=== PATIENT | female | born 1970 | race Caucasian/White ===

== ENCOUNTER → 2019-12-03 06:46 | Outpatient (CLI) | payer OTHER, SELFPAY ==
--- NOTE | ~2019-12-03 | MM_ITS ---
EXAMINATION: MM screening edy BI w [place] HISTORY: Screening mammogram TECHNIQUE: Bilateral rotated lateral cc views. Craniocaudal and mediolateral oblique 3-D tomosynthesi s images were obtained and synthetic 2-D images were generated. CAD analysis was submitted and interp reted. COMPARISON: 04/05/2018 diagnostic digital mammogram 08/31/2017 and 03/21/2017 diagnostic right digital mammogram and limited right breast ultrasound examin ations 03/08/2017 bilateral digital screening mammogram BREAST PARENCHYMAL COMPOSITION: There are scattered areas of fibroglandular density. FINDINGS: There are scattered bilateral benign calcifications. There is no evidence of suspicious mas s, calcification, or architectural distortion to suggest malignancy in either breast. There has been no suspicious interval change. IMPRESSION: 1. No mammographic evidence of malignancy. 2. Recommend routine screening mammography in one year. BI-RADS Category 2: Benign findings Reviewed, dictated and finalized at location B. 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
== END ==
PROVIDERS: PCP Family Medicine; Visit Provider Obstetrics & Gynecology
DX: Z12.31 Encounter for screening mammogram for malignant neoplasm of breast (principal)
CPT/HCPCS: 77063; 77067

== ENCOUNTER 2020-03-03 11:08 | Outpatient (CLI) | payer OTHER, SELFPAY ==
--- NOTE | ~2020-03-03 | XR_ITS ---
XR lumbar spine 2-3V 03/03/2020 11:33 Indication: Low back pain Procedure: 3 views lumbar spine Comparison: No prior studies for comparison. Findings: There is dextroscoliosis. There is disc narrowing at L4-5. There is moderate facet hypertro phy at L4-5 and L5-S1. There is degenerative grade 1 spondylolisthesis at L4-5. There is disc narrowi ng at L1-2. No acute fracture or traumatic malalignment. Pedicles intact. Sacral foramen are symmetri c. Impression: 1: Moderate lumbar spondylosis with dextroscoliosis. Reviewed, dictated and finalized at location A. Impression: 1: Moderate lumbar spondylosis with dextroscoliosis.
--- NOTE | ~2020-03-03 | XR_ITS ---
XR hip LT min 2V 03/03/2020 11:32 Indication: Left hip pain Procedure: 3 views left hip Comparison: No prior studies for comparison. Findings: No fracture or traumatic malalignment. No significant soft tissue abnormality. Surrounding osseous structures within normal limits. Impression: 1: No significant bone or joint abnormality. Reviewed, dictated and finalized at location A. Impression: 1: No significant bone or joint abnormality.
== END 2020-03-03 11:09 | disposition home or self-care (01) ==
LOC: ANHIMG 11:10
PROVIDERS: PCP Family Medicine; Visit Provider Nurse Practitioner Family
DX: M25.552 Pain in left hip (principal); M54.9 Dorsalgia, unspecified; M47.816 Spondylosis without myelopathy or radiculopathy, lumbar region; M41.86 Other forms of scoliosis, lumbar region
CPT/HCPCS: 72100; 73502

== ENCOUNTER → 2020-12-22 11:46 | Outpatient (CLI) | payer OTHER, SELFPAY ==
[2020-12-23 14:42] LABS: SARS-CoV-2 RNA PCR Negative
== END ==
PROVIDERS: PCP Family Medicine; Visit Provider Nurse Practitioner Family
DX: R50.9 Fever, unspecified (principal); Z20.822 Contact with and (suspected) exposure to COVID-19
CPT/HCPCS: C9803; U0003; U0005

== ENCOUNTER → 2021-05-18 14:38 | Outpatient (CLI) | payer OTHER, SELFPAY ==
--- NOTE | ~2021-05-18 | MR_ITS ---
EXAMINATION: MR lumbar spine wo con EXAM DATE: 05/18/2021 15:58 INDICATION: M54.16 - Radiculopathy, lumbar region radiculopathy, lumbar region. Low back pain. TECHNIQUE: Multi-sequential, multiplanar MR images of the lumbar spine were obtained without contrast . Sagittal T1, T2, T2 fat saturation images. Axial T2 weighted images. Correlation is made to lumba r x-ray 03/03/2020. FINDINGS: There is 5 mm anterolisthesis L4 on L5 with mild to moderate loss of this disc height. Mild to moderate loss of the L1-2 disc height. Otherwise mild lumbar disc disease. The conus medullaris t erminates at the T12-L1 level and has normal signal intensity and morphology. Small thoracolumbar Sc hmorl's nodes. Paraspinal soft tissue is unremarkable. There is mild dextroscoliosis. Incidental note made of pelvic cystic region with fluid fluid level measuring about 4 x 5 cm. This is likely ovarian origin, could be a hemorrhagic cyst, but follow-up pelvic sonogram should be consider ed, particularly if patient is postmenopausal. Level by level evaluation: T12-L1: Disc does not extend beyond the endplate margin. Facet arthropathy: None. Neural foraminal stenosis: No stenosis. Central canal stenosis: No stenosis. L1-L2: There is a mild diffuse disc bulge. Facet arthropathy: Mild. Neural foraminal stenosis: No stenosis. Central canal stenosis: No stenosis. L2-L3: There is a mild diffuse disc bulge. Facet arthropathy: Mild. Neural foraminal stenosis: No stenosis. Central canal stenosis: No stenosis. L3-L4: There is a mild diffuse disc bulge. Facet arthropathy: Mild. Neural foraminal stenosis: No stenosis. Central canal stenosis: No stenosis. L4-L5: There is a mild to moderate diffuse disc bulge. Facet arthropathy: Moderate. Neural foraminal stenosis: Moderate left, mild to moderate right. Central canal stenosis: Mild to moderate. L5-S1: There is a mild diffuse disc bulge. Facet arthropathy: Mild. Neural foraminal stenosis: No stenosis. Central canal stenosis: No stenosis. IMPRESSION: 1. Incidental pelvic cystic lesion; consider pelvic sonogram. 2. L4-5 grade 1 anterolisthesis, moderate facet arthropathy and left neural foraminal stenosis. 3. Less spondylosis other levels. 4. Mild dextroscoliosis. Reviewed, dictated and finalized at location A. IMPRESSION: 1. Incidental pelvic cystic lesion; consider pelvic sonogram. 2. L4-5 grade 1 anterolisthesis, moderate facet arthropathy and left neural fo raminal stenosis. 3. Less spondylosis other levels. 4. Mild dextroscoliosis.
== END ==
PROVIDERS: PCP Family Medicine; Visit Provider Nurse Practitioner Family
DX: M47.26 Other spondylosis with radiculopathy, lumbar region (principal)
CPT/HCPCS: 72148

== ENCOUNTER 2021-06-10 13:36 | Outpatient (CLI) | payer OTHER, SELFPAY ==
--- NOTE | ~2021-06-10 | MM_ITS ---
EXAMINATION: MM screening edy BI w [place] HISTORY: Screening TECHNIQUE: Craniocaudal and mediolateral oblique 3-D tomosynthesis images were obtained and synthetic 2-D images were generated. CAD analysis was submitted and interpreted. COMPARISON: No prior mammogram is available for comparison at this institution. BREAST PARENCHYMAL COMPOSITION: There are scattered areas of fibroglandular density. FINDINGS: Stable focal asymmetry medial aspect of the right breast. There is no evidence of suspiciou s mass, calcification, or architectural distortion to suggest malignancy in either breast. There has been no suspicious interval change. IMPRESSION: 1. No mammographic evidence of malignancy. 2. Recommend routine screening mammography in one year. BI-RADS Category 2: Benign finding(s). Reviewed, dictated and finalized at location A.
== END 2021-06-10 13:37 | disposition home or self-care (01) ==
LOC: ANHIMG 13:38
PROVIDERS: PCP Family Medicine; Visit Provider Obstetrics & Gynecology
DX: Z12.31 Encounter for screening mammogram for malignant neoplasm of breast (principal)
CPT/HCPCS: 77063; 77067

== ENCOUNTER → 2022-04-06 00:30 | Outpatient (CLI) | payer OTHER, SELFPAY ==
[2022-04-06 12:27] LABS: SARS-CoV-2 RNA PCR Positive
== END ==
PROVIDERS: PCP Family Medicine; Visit Provider Nurse Practitioner Family
DX: U07.1 COVID-19 (principal)
CPT/HCPCS: C9803; U0003; U0005

== ENCOUNTER → 2022-10-19 08:52 | Outpatient (CLI) | payer OTHER, SELFPAY ==
--- NOTE | ~2022-10-19 | MR_ITS ---
EXAMINATION: MR lumbar spine wo con DATE: 10/19/2022 09:30 INDICATION: Lumbago. TECHNIQUE: Magnetic resonance imaging (MRI) of the lumbar spine was performed without intravenous con trast. Sequences included sagittal T2-weighted FSE, sagittal T2-weighted FS FSE, sagittal T1-weighted FSE, and axial T2-weighted FSE. COMPARISON: Lumbar spine MRI 05/18/2021 FINDINGS: There is 13 degrees dextroscoliosis of lumbar spine. There is 3 mm anterolisthesis of L4 on L5 and L5 on S1. There is mild chronic anterior wedging of T10 and T11 vertebral bodies. There are S chmorl's nodes at multiple levels. There is mildly decreased disc height at L1-L2. There are changes of anterior and posterior fusion procedures at L4-L5 with interbody devices and pedicle screws. The d istal spinal cord signal intensity is normal. The conus medullaris is at T12-L1. The following disc l evels are specifically discussed: L1-L2: The disc is bulging. There is mild bilateral facet joint osteoarthritis. There is mild bilater al neural foraminal stenosis. There is mild central canal stenosis. L2-L3: The disc does not extend beyond the endplate margin. There is mild bilateral facet joint osteo arthritis. There is no neural foraminal stenosis. There is no central canal stenosis. L3-L4: The disc does not extend beyond the endplate margin. There is severe bilateral facet joint ost eoarthritis. There is no neural foraminal stenosis. There is no central canal stenosis. L4-L5: There is mild bilateral facet joint hypertrophy. There is mild bilateral neural foraminal sten osis. There is no central canal stenosis. L5-S1: The disc is bulging and has an annular fissure. There is moderate bilateral facet joint osteoa rthritis. There is mild bilateral neural foraminal stenosis. There is mild central canal stenosis. IMPRESSION: 1. Anterior and posterior fusion procedures at L4-L5, new from 05/18/2021. 2. Mild lumbar spondylosis, stable from 05/18/2021. 3. Lumbar dextroscoliosis. Reviewed, dictated and finalized at location A. 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
== END ==
PROVIDERS: PCP Family Medicine
DX: M47.896 Other spondylosis, lumbar region (principal); Z98.1 Arthrodesis status
CPT/HCPCS: 72148

== ENCOUNTER 2023-02-16 14:05 | Outpatient (CLI) | payer OTHER, SELFPAY ==
--- NOTE | ~2023-02-16 | MM_ITS ---
EXAMINATION: MM screening edy BI w [place] HISTORY: Screening mammogram TECHNIQUE: Craniocaudal and mediolateral oblique 3-D tomosynthesis images were obtained and synthetic 2-D images were generated. CAD analysis was submitted and interpreted. COMPARISON: 06/10/2021, , 04/05/2018 bilateral screening mammogram examinations BREAST PARENCHYMAL COMPOSITION: There are scattered areas of fibroglandular density. FINDINGS: Stable mild fibroglandular asymmetry. Occasional benign calcifications. There is no evidenc e of suspicious mass, calcification, or architectural distortion to suggest malignancy in either [address]. There has been no suspicious interval change. IMPRESSION: 1. No mammographic evidence of malignancy. 2. Recommend routine screening mammography in one year. BI-RADS Category 2: Benign finding(s). Reviewed, dictated and finalized at location B.
== END 2023-02-16 14:06 | disposition home or self-care (01) ==
PROVIDERS: PCP Family Medicine; Visit Provider Obstetrics & Gynecology
DX: Z12.31 Encounter for screening mammogram for malignant neoplasm of breast (principal)
CPT/HCPCS: 77063; 77067

== ENCOUNTER 2023-08-09 17:03 | Outpatient (CLI) | payer BC, SELFPAY ==
--- NOTE | ~2023-08-09 | XR_ITS ---
EXAMINATION:XR_CERV2-3V_CR DATE: 08/09/2023 17:27 INDICATION: Anesthesia of the skin TECHNIQUE: AP, lateral, and odontoid views of the cervical spine are provided. COMPARISON: 01/26/2016 FINDINGS: There is 1 mm of anterolisthesis of C4 on C5. There are 2 mm of retrolisthesis of C5 on C6. There is moderate loss of intervertebral disc space height at C5-6. The odontoid process is intact. No fracture is identified. The vertebral body heights are maintained. Small degenerative osteophytes project from the anterior endplates of multiple vertebral bodies. There is multilevel moderate facet and uncovertebral joint osteoarthritis. Prevertebral soft tissues are normal. IMPRESSION: 1. Mild to moderate cervical spondylosis without acute findings or significant interval change. Reviewed, dictated and finalized at location F.
== END 2023-08-09 17:04 | disposition home or self-care (01) ==
PROVIDERS: PCP Family Medicine; Visit Provider Physician Assistant Medical
DX: R20.0 Anesthesia of skin (principal); M47.892 Other spondylosis, cervical region
CPT/HCPCS: 72040

== ENCOUNTER 2023-08-25 08:02 | Outpatient (CLI) | payer BC, SELFPAY ==
--- NOTE | ~2023-08-25 | MR_ITS ---
EXAMINATION: MR cervical spine wo con DATE: 08/25/2023 08:36 INDICATION: Neck pain. TECHNIQUE: Magnetic resonance imaging (MRI) of the cervical spine was performed without intravenous c ontrast. Sequences included sagittal T2-weighted FSE, sagittal T2-weighted FS FSE, sagittal T1-weight ed FSE, axial MERGE, and axial T2-weighted FSE. COMPARISON: Cervical spine MRI 02/02/2016, radiographs 08/09/2023 FINDINGS: There is kyphosis of cervical spine. There is 2 mm anterolisthesis of C3 on C4 and C4 on C5 . Vertebral body heights are normal. There is severely decreased disc height at C5-C6. The spinal cor d signal intensity is normal. The following disc levels are specifically discussed: C2-C3: The disc does not extend beyond the endplate margin. There is no uncovertebral joint osteoarth ritis. There is mild bilateral facet joint osteoarthritis. There is no neural foraminal stenosis. The re is no central canal stenosis. C3-C4: The disc does not extend beyond the endplate margin. There is mild left uncovertebral joint os teoarthritis. There is severe bilateral facet joint osteoarthritis. There is mild left neural foramin al stenosis. There is no central canal stenosis. C4-C5: The disc does not extend beyond the endplate margin. There is moderate bilateral uncovertebral joint osteoarthritis. There is severe right and moderate left facet joint osteoarthritis. There is m oderate right and mild left neural foraminal stenosis. There is no central canal stenosis. C5-C6: The disc is bulging. There is severe bilateral uncovertebral joint osteoarthritis. There is mi ld bilateral facet joint osteoarthritis. There is mild right and moderate left neural foraminal steno sis. There is mild central canal stenosis. C6-C7: There is a central protrusion with annular fissure. There is no uncovertebral joint osteoarthr itis. There is severe bilateral facet joint osteoarthritis. There is mild bilateral neural foraminal stenosis. There is no central canal stenosis. C7-T1: The disc does not extend beyond the endplate margin. There is no uncovertebral joint osteoarth ritis. There is mild right and severe left facet joint osteoarthritis. There is mild left neural fora carlos stenosis. There is no central canal stenosis. IMPRESSION: 1. Severe spondylosis at C5-C6 and moderate spondylosis at other levels, worsened from 02/02/2016. Reviewed, dictated and finalized at location E. IMPRESSION: 1. Severe spondylosis at C5-C6 and moderate spondylosis at other levels, worsen ed from 02/02/2016.
== END 2023-08-25 08:03 | disposition home or self-care (01) ==
PROVIDERS: PCP Family Medicine; Visit Provider Nurse Practitioner Family
DX: M47.892 Other spondylosis, cervical region (principal); R20.0 Anesthesia of skin
CPT/HCPCS: 72141

== ENCOUNTER 2024-03-14 11:12 | Outpatient (CLI) | payer BC, SELFPAY ==
--- NOTE | ~2024-03-14 | XR_ITS ---
EXAMINATION: XR shoulder LT min 2V DATE: 03/14/2024 11:30 INDICATION: Left shoulder pain. TECHNIQUE: 4 views of left shoulder were obtained. COMPARISON: Left shoulder radiographs 01/26/2016 FINDINGS: Bone alignment is normal. No fracture. There is mild osteoarthritis of acromioclavicular issac int. Glenohumeral joint is normal. There are changes of posterior fusion procedure in cervical spine. IMPRESSION: 1. Mild osteoarthritis of acromioclavicular joint. Reviewed, dictated and finalized at location E.
== END 2024-03-14 11:13 ==
PROVIDERS: PCP Family Medicine; Visit Provider Nurse Practitioner Family
DX: M19.012 Primary osteoarthritis, left shoulder (principal)
CPT/HCPCS: 73030

== ENCOUNTER 2024-08-08 10:25 | Outpatient (CLI) | payer BC, SELFPAY ==
--- NOTE | ~2024-08-08 | XR_ITS ---
Lumbosacral Spine: AP and lateral views Clinical History: Pain COMPARISON: 03/03/2020 Findings: The normal lordotic curve is maintained. Status post interval posterior and interbody fusio n from L4 to L5. There are mild degenerative disc changes. There are mild facet joint degenerative ch anges. The sacroiliac joints are normally outlined. Impression: Status post interval posterior and interbody fusion from L4 to L5. [id number] degenerative spondylosis, as above. Reviewed, dictated and finalized at location M. Impression: Status post interval posterior and interbody fusion from L4 to L5. [id number] degenerative spondylosis, as above.
== END 2024-08-08 10:26 | disposition home or self-care (01) ==
LOC: MICIMG 10:26
PROVIDERS: PCP Family Medicine
DX: M47.816 Spondylosis without myelopathy or radiculopathy, lumbar region (principal); M43.26 Fusion of spine, lumbar region
CPT/HCPCS: 72100

== ENCOUNTER 2024-09-25 10:53 | Emergency (ER) | payer BC, SELFPAY ==
[2024-09-25 11:00] VITALS: BP 132/93; PULSE 98; RESP 17; TEMP 36.6; O2SAT 100
--- NOTE | 2024-09-25 11:02 | ECG_ITS ---
Test Date: 2024-09-25 11:05:44 Measurements Intervals [place] Rate: 84 P: 34 MT: 188 QRS: 37 QRSD: 85 T: 38 QT: 313 QTc: 370 Interpretive Statements SINUS RHYTHM BASELINE ARTIFACT- I, II, III, AVL, AVF, V5-V6 NORMAL ECG No previous ECG available for comparison Electronically Signed On 09-25-2024 12:01:28 NECK PINNER by Huy Fuchs D.O.
--- NOTE | 2024-09-25 13:21 | ED_ITS ---
HPI - General Adult General Chief complaint: Unspecified <Maria Ines Adler APRN - Last Filed: 09/25/24 13:25> Stated complaint: jaw, neck, shoulder and groin pain <Maria Ines Adler APRN - Last Filed: 09/25/24 13:25> Time Seen by Provider: 09/25/24 13:15 <Maria Ines Adler APRN - Last Filed: 09/25/24 13:25> Focused HPI: Patient is a 54-year-old female who presents to the toe pain that started last week but resolved 2 days ago. She endorses ongoing neck, shoulder and groin pain. Patient endorses muscle and joint pain this started approximately 7-8 months ago and she has an supervisor frame sample and pattern that follows her. She called her supervisor frame sample and pattern this morning because of the previous jaw pain and he advised her to come to the ER for evaluation. Patient endorses intermittent stiffness and pain in her neck. She denies chest pain, shortness of breath, recent fevers. GENERAL: Well-appearing, well-nourished, and in no acute distress. HEAD: Normocephalic, atraumatic. CHEST: Clear to auscultation. ?No respiratory distress. HEART: Regular rate and rhythm.? NEURO: ?Alert and oriented x3. Patient screened in triage and initial orders placed.? ?Additional care and disposition to be based upon?diagnostic testing and treatment. <Maria Ines Adler APRN - Last Filed: 09/25/24 13:25> History of Present Illness HPI narrative: Agree with HPI. Multiple body aches over last couple weeks. No jaw pain for 7 days. Has mild discomfort in left inguinal region. No swelling. <Edward Mckenna MD - Last Filed: 09/25/24 16:44> Related Data Home medications: Home Medications Medication Instructions Recorded Confirmed estradiol 1 mg tablet 1 mg PO DAILY 02/18/21 08/08/24 meloxicam 15 mg tablet 15 mg PO DAILY 08/08/24 08/08/24 <Maria Ines Adler APRN - Last Filed: 09/25/24 13:25> Allergies/adverse reactions: Allergies Allergy/AdvReac Type Severity Reaction Status Date / Time No Known Allergies Allergy Verified 08/08/24 09:38 <Maria Ines Adler APRN - Last Filed: 09/25/24 13:25> Review of Systems Review of Systems: All systems reviewed & are unremarkable except as noted in HPI and below <Edward Mckenna MD - Last Filed: 09/25/24 16:44> Constitutional: Constitutional: Reports no additional constitutional complaints <Edward Mckenna MD - Last Filed: 09/25/24 16:44> ENT: Reports system reviewed and no additional complaints, except as documented <Edward Mckenna MD - Last Filed: 09/25/24 16:44> Cardiovascular: Cardiovascular: Reports no additional cardiovascular complaints <Edward Mckenna MD - Last Filed: 09/25/24 16:44> Respiratory: Respiratory: Reports no additional respiratory complaints <Jt Mckenna MD - Last Filed: 09/25/24 16:44> Gastrointestinal: Gastrointestinal: Reports no additional gastrointestinal complaints <Edward Mckenna MD - Last Filed: 09/25/24 16:44> Musculoskeletal: Musculoskeletal: Reports myalgias, Denies arthralgias, Denies joint swelling and Denies muscle weakness <Edward Mckenna MD - Last Filed: 09/25/24 16:44> [facility] Past Medical History Medical History: Medical History Abnormal EKG Abnormal MRI, lumbar spine Binge eating disorder COVID-19 Discoloration of skin of toe Encounter before starting medication Eustachian tube dysfunction Excessive daytime sleepiness Fatigue Fever Hyperglycemia Hypocalcemia Left arm numbness Left lateral epicondylitis Lumbar back pain with radiculopathy affecting left lower extremity Migraines Nightmare disorder Numbness of right foot Onychomycosis Pain, hand joint Paresthesia Raynauds disease Screening for malignant neoplasm of breast Screening, lipid Skin abnormalities Trochanteric bursitis of left hip Unspecified disturbances of smell and taste <MariaI nes Adler APRN - Last Filed: 09/25/24 13:25> Surgical History Surgical History: Surgical History H/O spinal fusion History of foot surgery History of tubal ligation <Maria Ines Adler APRN - Last Filed: 09/25/24 13:25> Family History Family History: Family History Father Diabetes mellitus Heart disease Liver cancer Mother No problems noted. Sibling Tongue cancer COVID-19 Other Family history of malignant neoplasm <Maria Ines LWellington Adler APRN - Last Filed: 09/25/24 13:25> Social History Social History: Social History Smoking status: Never smoker Second hand tobacco smoke exposure: No Alcohol intake: current Substance use: former Substance use type: does not use Other substance usage details: gummies Do You Feel Safe in your Home?: Yes Lack of Transportation: No Lack of Food: Never True Current Housing: I Have Housing Concerned About Future Housing: No Difficulty Paying Gas/Electric Bills: No Difficulty Paying for Meds: No Currently Unemployed: No Education: Trade/Vocational Certificate Difficulty w/ Childcare or Family Care: No Living arrangements: with family Occupation/Education: occupation 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 HEAD: Normocephalic, atraumatic. EYES: PERRL and EOMI. ENT: Mucous membranes moist. CHEST: Clear to auscultation. No respiratory distress. HEART: Regular rate and rhythm. Normal peripheral pulses. ABDOMEN: Soft, nontender, nondistended. EXTREMITIES: Normal range of motion. No edema. SKIN: Warm, dry, no rash. NEURO: Alert and oriented x3. PSYCH: Normal mood and affect. <Edward Mckenna MD - Last Filed: 09/25/24 16:44> Course Course Emergency Course: Unremarkable evaluation. Appropriate for discharge home. <Edward Mckenna MD - Last Filed: 09/25/24 16:44> Vital Signs Vital signs: Vital Signs Temperature 97.8 F 09/25/24 11:00 Pulse Rate 98 09/25/24 11:00 Respiratory Rate 17 09/25/24 11:00 Blood Pressure 132/93 H 11/26/24 11:00 Pulse Oximetry 100 09/25/24 11:00 Oxygen Delivery Room Air 09/25/24 11:00 Temperature 97.8 F 09/25/24 11:00 Pulse Rate 71 09/25/24 15:58 Respiratory Rate 18 09/25/24 15:58 Blood Pressure 135/82 09/25/24 15:58 Pulse Oximetry 100 09/25/24 15:58 Oxygen Delivery Room Air 09/25/24 11:00 <Maria Ines Adler, [employer] - Last Filed: 09/25/24 13:25> Vital Signs Temperature 97.8 F 09/25/24 11:00 Pulse Rate 98 09/25/24 11:00 Respiratory Rate 17 09/25/24 11:00 Blood Pressure 132/93 H 09/25/24 11:00 Pulse Oximetry 100 09/25/24 11:00 Oxygen Delivery Room Air 09/25/24 11:00 Temperature 97.8 F 09/25/24 11:00 Pulse Rate 71 09/25/24 15:58 Respiratory Rate 18 09/25/24 15:58 Blood Pressure 135/82 09/25/24 15:58 Pulse Oximetry 100 09/25/24 15:58 Oxygen Delivery Room Air 09/25/24 11:00 <Edward Mckenna MD - Last Filed: 09/25/24 16:44> Medical Decision Making Vital Signs Vital Signs: Vital Signs Temperature 97.8 F 09/25/24 11:00 Pulse Rate 98 09/25/24 11:00 Respiratory Rate 17 09/25/24 11:00 Blood Pressure 132/93 H 09/25/24 11:00 Pulse Oximetry 100 09/25/24 11:00 Oxygen Delivery Room Air 09/25/24 11:00 Temperature 97.8 F 09/25/24 11:00 Pulse Rate 71 09/25/24 15:58 Respiratory Rate 18 09/25/24 15:58 Blood Pressure 135/82 09/25/24 15:58 Pulse Oximetry 100 09/25/24 15:58 Oxygen Delivery Room Air 09/25/24 11:00 <Maria Ines Adler, [employer] - Last Filed: 09/25/24 13:25> Vital Signs Temperature 97.8 F 09/25/24 11:00 Pulse Rate 98 09/25/24 11:00 Respiratory Rate 17 09/25/24 11:00 Blood Pressure 132/93 H 09/25/24 11:00 Pulse Oximetry 100 09/25/24 11:00 Oxygen Delivery Room Air 09/25/24 11:00 Temperature 97.8 F 09/25/24 11:00 Pulse Rate 71 09/25/24 15:58 Respiratory Rate 18 09/25/24 15:58 Blood Pressure 135/82 09/25/24 15:58 Pulse Oximetry 100 09/25/24 15:58 Oxygen Delivery Room Air 09/25/24 11:00 <Edward Mckenna MD - Last Filed: 09/25/24 16:44> Lab Data Result diagrams: 09/25/24 13:50 09/25/24 13:50 <Maria Ines Adler APRN - Last Filed: 09/25/24 13:25> Labs: Lab Results 09/25/24 09/25/24 Range/Units 13:50 15:12 WBC 7.3 (4.5-10.0) K/mm3 RBC 4.01 L (4.2-5.4) M/mm3 Hgb 13.0 (12.0-15.0) g/dL Hct 37.3 (37.0-47.0) % MCV 93.0 (80-100) fl MCH 32.4 (26-34) pg MCHC 34.9 (32-36) g/dl RDW 12.8 (11.5-14.5) % Plt Count 259 (150-375) k/mm3 MPV 9.7 (7.4-10.4) fl Immature Gran % (Auto) 0.1 (0-0.5) % Neut % (Auto) 70.2 (45.5-73.1) % Lymph % (Auto) 20.5 (18.3-44.2) % [place] % (Auto) 7.8 (2.6-8.5) % Eos % (Auto) 0.4 (0-4.4) % Baso % (Auto) 1.0 (0.2-1.2) % Lymph # (Auto) 1.49 (0.9-3.2) K/mm3 [place] # (Auto) 0.6 (0.1-0.6) K/mm3 Eos # (Auto) 0.0 (0-0.3) K/mm3 Baso # (Auto) 0.1 (0.0-0.1) K/mm3 Abs Immat Gran (auto) 0.01 (0.00-0.031) K/mm3 Absolute Neuts (auto) 5.1 (1.3-6.7) K/mm3 Absolute Nucleated RBC 0.000 (0.0-0.012) K/mm3 Nucleated RBC % 0.0 (0.0-0.2) % PT 12.8 (11.1-14.7) Seconds INR 0.9 APTT 24.7 (22.3-36.8) Seconds Sodium 138 (137-145) mmol/L Potassium 3.8 (3.4-5.0) mmol/L Chloride 105 (98-107) mmol/L Carbon Dioxide 29 (22-30) mmol/L Anion Gap 4 (4-12) mmol/L BUN 22 H (7-17) mg/dL Creatinine 0.50 L (0.7-1.0) mg/dL Estim Creat Clear Calc 92 ml/min Estimated GFR > 60 (59 - ) Glucose 90 (65-110) mg/dL Calcium 9.1 (8.4-10.2) mg/dL Total Bilirubin 0.6 (0.2-1.3) mg/dL AST 33 (14-36) U/L ALT 22 (6-35) U/L Alkaline Phosphatase 75 (38-126) U/L Total Creatine Kinase 161 H (30-135) U/L Total Protein 7.0 (6.3-8.2) g/dL Albumin 4.1 (3.5-5.1) g/dL Lipase 165 (23-300) U/L TSH (Reflex) 1.260 (0.465-4.68) uIU/mL Urine Color Yellow (Yellow) Urine Appearance Clear (Clear) Urine pH 5.5 (5.0-9.0) Ur Specific [place] 1.012 (1.001-1.035) Urine Protein Negative (Negative) mg/dL Urine Glucose (UA) Negative (Negative) mg/dL Urine Ketones Negative (Negative) mg/dL Ur Blood (Man) Negative (Negative) Urine Nitrate Negative (Negative) Urine Bilirubin Negative (Negative) Urine Urobilinogen 0.2 (<2.0) mg/dL Leukocyte Esterase Rfl Negative (Negative) CLIFFORD/UL <Maria Ines Alysha Adler, [employer] - Last Filed: 09/25/24 13:25> Lab Results 09/25/24 09/25/24 Range/Units 13:50 15:12 WBC 7.3 (4.5-10.0) K/mm3 RBC 4.01 L (4.2-5.4) M/mm3 Hgb 13.0 (12.0-15.0) g/dL Hct 37.3 (37.0-47.0) % MCV 93.0 (80-100) fl MCH 32.4 (26-34) pg MCHC 34.9 (32-36) g/dl RDW 12.8 (11.5-14.5) % Plt Count 259 (150-375) k/mm3 MPV 9.7 (7.4-10.4) fl Immature Gran % (Auto) 0.1 (0-0.5) % Neut % (Auto) 70.2 (45.5-73.1) % Lymph % (Auto) 20.5 (18.3-44.2) % [place] % (Auto) 7.8 (2.6-8.5) % Eos % (Auto) 0.4 (0-4.4) % Baso % (Auto) 1.0 (0.2-1.2) % Lymph # (Auto) 1.49 (0.9-3.2) K/mm3 [place] # (Auto) 0.6 (0.1-0.6) K/mm3 Eos # (Auto) 0.0 (0-0.3) K/mm3 Baso # (Auto) 0.1 (0.0-0.1) K/mm3 Abs Immat Gran (auto) 0.01 (0.00-0.031) K/mm3 Absolute Neuts (auto) 5.1 (1.3-6.7) K/mm3 Absolute Nucleated RBC 0.000 (0.0-0.012) K/mm3 Nucleated RBC % 0.0 (0.0-0.2) % PT 12.8 (11.1-14.7) Seconds INR 0.9 APTT 24.7 (22.3-36.8) Seconds Sodium 138 (137-145) mmol/L Potassium 3.8 (3.4-5.0) mmol/L Chloride 105 (98-107) mmol/L Carbon Dioxide 29 (22-30) mmol/L Anion Gap 4 (4-12) mmol/L BUN 22 H (7-17) mg/dL Creatinine 0.50 L (0.7-1.0) mg/dL Estim Creat Clear Calc 92 ml/min Estimated GFR > 60 (59 - ) Glucose 90 (65-110) mg/dL Calcium 9.1 (8.4-10.2) mg/dL Total Bilirubin 0.6 (0.2-1.3) mg/dL AST 33 (14-36) U/L ALT 22 (6-35) U/L Alkaline Phosphatase 75 (38-126) U/L Total Creatine Kinase 161 H (30-135) U/L Total Protein 7.0 (6.3-8.2) g/dL Albumin 4.1 (3.5-5.1) g/dL Lipase 165 (23-300) U/L TSH (Reflex) 1.260 (0.465-4.68) uIU/mL Urine Color Yellow (Yellow) Urine Appearance Clear (Clear) Urine pH 5.5 (5.0-9.0) Ur Specific [place] 1.012 (1.001-1.035) Urine Protein Negative (Negative) mg/dL Urine Glucose (UA) Negative (Negative) mg/dL Urine Ketones Negative (Negative) mg/dL Ur Blood (Man) Negative (Negative) Urine Nitrate Negative (Negative) Urine Bilirubin Negative (Negative) Urine Urobilinogen 0.2 (<2.0) mg/dL Leukocyte Esterase Rfl Negative (Negative) CLIFFORD/UL <Edward Mckenna MD - Last Filed: 09/25/24 16:44> ECG Data EKG #1: ECG completion date: 09/25/24 <Edward Mckenna MD - Last Filed: 09/25/24 16:44> ECG completion time: 11:05 <Edward Mcknena MD - Last Filed: 09/25/24 16:44> EKG Interpretation: normal rate (84), sinus rhythm, no ectopy, non-specific ST changes, normal QRS, normal QT and NL axis <Edward Mckenna MD - Last Filed: 09/25/24 16:44> Discharge Plan Discharge Clinical Impression: Jaw pain <Maria Ines Adler APRN - Last Filed: 09/25/24 13:25> Patient Disposition: Home, Self-Care <Maria Ines Adler APRN - Last Filed: 09/25/24 13:25> Condition: Stable <Maria Ines Adler APRN - Last Filed: 09/25/24 13:25> Instructions: Normal Exam (ED) <Maria Ines Adler APRN - Last Filed: 09/25/24 13:25> Additional Instructions: Please return to the emergency department if you develop severe and persistent chest pain, difficulty breathing, dizziness, leg swelling or if you are coughing up blood as these can be signs of a medical emergency. Please call your doctor for a follow up appointment to determine the need for further testing. <Maria Ines Adler APRN - Last Filed: 09/25/24 13:25> Prescriptions: No Action cetirizine-pseudoephedrine [Zyrtec-D] 5-120 mg tablet extended release 12 hr 1 tablet PO Q12H PRN (Reason: nasal congestion) Qty: 60 0RF estradiol 1 mg tablet 1 mg PO DAILY Rx Instructions: off 1 week; repeat cycle meloxicam 15 mg tablet 15 mg PO DAILY tizanidine 2 mg tablet 2 mg PO TID PRN (Reason: muscle spasticity) Qty: 60 0RF lisdexamfetamine [Vyvanse] 70 mg capsule 70 mg PO DAILY Qty: 30 0RF <Maria Ines Adler APRN - Last Filed: 09/25/24 13:25> Follow-up/Referrals: Mann Tran MD [Primary Care Provider] - 1 Week <Maria Ines Adler APRN - Last Filed: 09/25/24 13:25>
[2024-09-25 13:47] VITALS: BP 132/82; PULSE 72; RESP 12; O2SAT 99
[2024-09-25 13:57] LABS: Basophils Absolute Auto 0.1 K/mm3 (0.0-0.1); Eosinophils Percent Auto 0.4 % (0-4.4); Hematocrit 37.3 % (37.0-47.0); Immature Granulocyte Absolute 0.01 K/mm3 (0.00-0.031); Immature Granulocyte Percent A 0.1 % (0-0.5); Lymphocytes Absolute Auto 1.49 K/mm3 (0.9-3.2); Lymphocytes Percent Auto 20.5 % (18.3-44.2); Mean Corpuscular HGB Conc 34.9 g/dl (32-36); Mean Corpuscular Hemoglobin 32.4 pg (26-34); Mean Platelet Volume 9.7 fl (7.4-10.4); Monocytes Absolute Auto 0.6 K/mm3 (0.1-0.6); Monocytes Percent Auto 7.8 % (2.6-8.5); Neutrophils Absolute Auto 5.1 K/mm3 (1.3-6.7); Neutrophils Percent Auto 70.2 % (45.5-73.1); Platelet Count Result 259 k/mm3 (150-375); Red Blood Count 4.01 M/mm3 (4.2-5.4); Red Cell Distribution Width 12.8 % (11.5-14.5); White Blood Count 7.3 K/mm3 (4.5-10.0)
[2024-09-25 14:07] LABS: Alanine Aminotransferase 22 U/L (6-35); Albumin Level 4.1 g/dL (3.5-5.1); Alkaline Phosphatase 75 U/L (38-126); Anion Gap 4 mmol/L (4-12); Aspartate Amino Transferase 33 U/L (14-36); Bilirubin,Total 0.6 mg/dL (0.2-1.3); Blood Urea Nitrogen 22 mg/dL (7-17); Calcium 9.1 mg/dL (8.4-10.2); Carbon Dioxide 29 mmol/L (22-30); Chloride 105 mmol/L (98-107); Creatine Kinase 161 U/L (30-135); Estimated CRCL calculation 92 ml/min; Estimated Glomerular Filt Rate > 60; Glucose 90 mg/dL (65-110); Lipase 165 U/L (23-300); Potassium 3.8 mmol/L (3.4-5.0); Sodium 138 mmol/L (137-145)
[2024-09-25 14:09] LABS: INR 0.9; Prothrombin Time 12.8 Seconds (11.1-14.7)
[2024-09-25 14:10] LABS: Partial Thromboplastin Time 24.7 Seconds (22.3-36.8)
--- NOTE | 2024-09-25 15:02 | PC.NURSE ---
patient ambulated to the restroom with steady gate
[2024-09-25 15:20] LABS: Add Urine Microscopic? NO; Appearance Urine Clear (Clear); Bilirubin Urine Negative (Negative); Blood Urine Negative (Negative); Color Urine Yellow (Yellow); Glucose Urine UA Negative (Negative); Ketones Urine Negative (Negative); Leukocyte Esterase Ur Negative LEU/UL (Negative); Nitrate Urine Negative (Negative); Protein Urine Negative (Negative); Specific Grav Ur 1.012 (1.001-1.035); Urobilinogen Urine 0.2 mg/dL (<2.0); pH Urine 5.5 (5.0-9.0)
[2024-09-25 15:58] VITALS: BP 135/82; PULSE 71; RESP 18; O2SAT 100
== END 2024-09-25 16:50 | disposition home or self-care (01) ==
PROVIDERS: Registered Nurse; Emergency Provider Emergency Medicine; PCP Family Medicine
DX: R68.84 Jaw pain (principal); I73.00 Raynaud's syndrome without gangrene; Z86.16 Personal history of COVID-19; Z79.899 Other long term (current) drug therapy
CPT/HCPCS: 36415; 80053; 81003; 82550; 83690; 84443; 85025; 85610; 85730; 93005; 99283

== ENCOUNTER 2024-12-17 18:32 | Emergency (ER) | payer BC, SELFPAY ==
--- NOTE | ~2024-12-17 | XR_ITS ---
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 COMPARISON: None available. FINDINGS: Osteopenia. No fracture or dislocation. No lytic or blastic lesion. Mild tricompartmental osteoarthritis. Small volume joint fluid. No erosion or periosteal change. Soft tissues within normal limits. IMPRESSION: No acute osseous finding in the left knee. Small left knee joint effusion. Reviewed, dictated and finalized at location K. RGIST/PEDIATRIC PULMONOLOGIST IMPRESSION: No acute osseous finding in the left knee. Small left knee joint ef fusion.
--- NOTE | ~2024-12-17 | XR_ITS ---
EXAM: XR ankle LT min 3V DATE: 12/17/2024 19:00 HISTORY: fell through ceiling- ankle injury and Knee [employer] . COMPARISON: None available. FINDINGS: Normal mineralization. Fixation screw in the first metatarsal. Nondisplaced oblique fractu re of the distal left fibula at the level of the joint line. No lytic or blastic lesion. Mild scatter ed degenerative change. Plantar enthesopathy. No erosion or periosteal change. Ankle joint effusion. Soft tissue swelling about the ankle. IMPRESSION: Nondisplaced oblique distal left fibular fracture (Kohler B). Reviewed, dictated and finalized at location K. N BLOCKER
--- NOTE | 2024-12-17 18:33 | ED.LOWEXIN ---
HPI - Extremity Injury (Lower) General Chief Complaint: Extremity Injury, Lower Stated Complaint: Injured Ankle and Knee Time Seen by Provider: 12/17/24 18:33 Source: patient Mode of arrival: ambulatory Limitations: no limitations History of Present Illness HPI Narrative: Oumou is a 54-year-old female patient presenting to the clinic today with complaints of left ankle and left knee injury. She reports she fell through her ceiling approximately 1 hour ago and injured her left knee and ankle. Is complaining of pain to the left lateral ankle and to the left anterior knee. Feels as though the knee is clicking when she is trying to walk. Also has 2 abrasion to the right noble. Related Data Home Medications ?Medication ?Instructions ?Recorded ?Confirmed ?Last Taken ?Type estradiol 1 mg tablet 1 mg PO DAILY 02/18/21 11/07/24 Unknown History testosterone cypionate 200 mg/mL 60 mg IM .every 10 days 11/07/24 11/07/24 Unknown History intramuscular syringe testosterone enanthate 200 mg/mL mg 12/17/24 Unknown History intramuscular oil Allergies Allergy/AdvReac Type Severity Reaction Status Date / Time No Known Allergies Allergy Verified 12/17/24 18:41 Review of Systems Review of Systems: Pertinent positives per HPI. Patient denies any fever, chills, rash, headache, visual changes, dizziness, cough, runny nose, sore throat, shortness of breath, chest pain, palpitations, nausea, vomiting, diarrhea, constipation, abdominal pain, or any urinary issues. FOR[facility], [facility] Past Medical History Medical History (Updated 12/17/24 @ 19:27 by Mango Grayson APRN) Bilateral otitis media with effusion Family history of liver cancer Liver cyst Lung nodules Bronchitis Positive anti-CCP test Abnormal C-reactive protein Hypocalcemia Hyperglycemia Abnormal EKG Left arm numbness Excessive daytime sleepiness Screening, lipid Screening for malignant neoplasm of breast Skin abnormalities Eustachian tube dysfunction Pain, hand joint Onychomycosis Encounter before starting medication Abnormal MRI, lumbar spine Migraines COVID-19 Discoloration of skin of toe Paresthesia Fatigue Raynauds disease Fever Unspecified disturbances of smell and taste Binge eating disorder Lumbar back pain with radiculopathy affecting left lower extremity Left lateral epicondylitis Nightmare disorder Numbness of right foot Trochanteric bursitis of left hip Surgical History Surgical History H/O spinal fusion History of tubal ligation History of foot surgery Family History Family History Father Diabetes mellitus Heart disease Liver cancer Mother No problems noted. Sibling Tongue cancer COVID-19 Other Family history of malignant neoplasm Social History Social History Smoking status: Never smoker Second hand tobacco smoke exposure: No Alcohol intake: current Substance use: former Substance use type: does not use Other substance usage details: gummies Do You Feel Safe in your Home?: Yes Lack of Transportation: No Lack of Food: Never True Current Housing: I Have Housing Concerned About Future Housing: No Difficulty Paying Gas/Electric Bills: No Difficulty Paying for Meds: No Currently Unemployed: No Education: Trade/Vocational Certificate Difficulty w/ Childcare or Family Care: No Living arrangements: with family Occupation/Education: occupation 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 There is no relevant family history pertinent to the patient complaint. Exam Narrative: General: Well-developed, well nourished, in no apparent distress Head: Normocephalic, atraumatic. Cardio: Regular rate and rhythm, s1 and s2 normal, no murmur appreciated. Resp: Clear to auscultation bilaterally, no rhonchi, rales, wheezing or rubs. Musculoskeletal: No deformity, localized bruising noted to the right lateral ankle and right anterior knee, tender to palpation over the right anterior knee and lateral right ankle,limited rom to the ankle and knee due to pain, muscle strength strong and equal, peripheral pulse strong, no edema, no cyanosis, sitting in a wheel chair Integumentary: [place], warm, and dry, 1 open abrasions to the right tib/fib and 1 (1.5cm) partial skin avulsion to the right tib/fib. Course Course Emergency Course: Portions of this record may have been created with voice recognition software. Level of Care: Express Care Visit Vital Signs Vital signs: Vital Signs Temperature 36.7 C 12/17/24 18:40 Pulse Rate 106 H 12/17/24 18:40 Respiratory Rate 16 12/17/24 18:40 Blood Pressure 135/93 H 12/17/24 18:40 Pulse Oximetry 100 12/17/24 18:40 Oxygen Delivery Room Air 12/17/24 18:40 Temperature 36.7 C 12/17/24 18:40 Pulse Rate 106 H 12/17/24 18:40 Respiratory Rate 16 12/17/24 18:40 Blood Pressure 135/93 H 12/17/24 18:40 Pulse Oximetry 100 12/17/24 18:40 Oxygen Delivery Room Air 12/17/24 18:40 Vital signs reviewed Procedures Laceration Laceration 1: Date: 12/17/24 Site: lower extremity Side (If applicable): left Size (cm): 1.5 Description: flap (skin avulsion) Depth: simple, single layer Pre-repair: wound explored and irrigated ====== Skin Level ====== Skin layer closed with: steri strips Size (cm): other (1/2) Number of sutures: 3 ====== Subcutaneous Layer ====== ====== Muscle Layer ====== ====== Tendon Layer ====== MDM - Extremity Injury (Lower) MDM Narrative Medical decision making narrative: At the time of visit patient is resting comfortably on the exam table. Patient appears to be nontoxic. Diagnostics: X-ray shows an oblique nondisplaced fracture of the left distal fibula and a small knee joint effusion Laceration: Skin avulsion to the right lower noble measuring approximately 1.5 cm. 3 1/2 cm Steri-Strips were applied after wound was irrigated and cleansed. Plan: Patient has a closed nondisplaced fracture of the left fibula, left knee effusion, skin avulsion to the right noble as well as abrasion to the right noble. Steri-Strips were applied to the skin avulsion. Short-leg OCL was applied to the left leg, patient has her own crutches. Jabari wrap was applied to the left knee and ice pack given. Supportive measures were discussed with the patient and they voiced understanding discharge instructions and agrees to treatment plan. Return precautions reviewed Differential Diagnosis Differential diagnosis: Likely ankle sprain and strain, acute internal derangement of knee, ankle fracture and other (knee sprain, tibia fracture, femur fracture) Imaging Data Radiologist's impression: ITS Impressions Ankle X-Ray 12/17/24 19:11 IMPRESSION: Nondisplaced oblique distal left fibular fracture (Kohler B). Knee X-Ray 12/17/24 19:13 IMPRESSION: No acute osseous finding in the left knee. Small left knee joint effusion. Discharge Plan Discharge Clinical Impression: Avulsion of skin, Abrasion of skin, Acute pain of left knee, Effusion of left knee joint Fibula fracture Qualifiers: Encounter type: initial encounter Fibula location: distal Fracture type: closed Fracture morphology: unspecified fracture morphology Laterality: left Qualified Code(s): S82.832A - Other fracture of upper and lower end of left fibula, initial encounter for closed fracture Contusion of knee Qualifiers: Encounter type: initial encounter Laterality: left Qualified Code(s): S80.02XA - Contusion of left knee, initial encounter Patient Disposition: Home, Self-Care Condition: Stable Instructions: Antibiotic Form, Ankle Fracture (ED), Splint Care (ED), Skin Avulsion (ED), Abrasion (ED), Knee Pain (ED) Additional Instructions: Tdap updated in the clinic today X-ray shows an oblique nondisplaced fracture of the distal left fibula bone, no acute fracture or malalignment of the left knee but shows a small joint effusion Keep wounds clean and dry Wash daily with soap and water and pat dry Do not pull, scratch, or take the Steri-Strips off-they will fall off on their own Rest, ice, elevate, and wear jabari wrap to the left knee, and wear the short-leg posterior OCL splint as directed Tylenol/motrin for pain as discussed. Use crutches as discussed Follow up with your PCP if symptoms persist more than 1 week. Follow-up with Dr. Dotson orthopedic doctor-call tomorrow to schedule appointment Patient Language: Citizen Of [place] Prescriptions: No Action testosterone enanthate 200 mg/mL oil testosterone cypionate 200 mg/mL syringe 60 mg IM .every 10 days Airsupra 90-80 mcg/actuation HFA aerosol inhaler 2 inh inhalation ONCE Qty: 5.9 0RF Rx Instructions: as a single dose; may repeat up to 6 doses per day (12 inhalations) estradiol 1 mg tablet 1 mg PO DAILY Rx Instructions: off 1 week; repeat cycle tizanidine 2 mg tablet 2 mg PO TID PRN (Reason: muscle spasticity) Qty: 60 0RF meloxicam 15 mg tablet 15 mg PO DAILY Qty: 90 0RF lisdexamfetamine [Vyvanse] 70 mg capsule 70 mg PO DAILY Qty: 30 0RF Follow-up/Referrals: Mann Tran MD [Primary Care Provider] - Severiano Dotson MD [Physician] - (left distal fibula fracture/left knee effusion) Time of Disposition: 19:20 Quality NIHSS Nursing Documentation ED NIHSS nursing documentation: reviewed/agree
[2024-12-17 18:40] VITALS: BP 135/93; PULSE 106; RESP 16; TEMP 36.7; O2SAT 100
[2024-12-17] MEDS: TETANUS,DIPHTHERIA,AC PERTUSSIS ADULT (0.5 ML) BOOSTRIX IM (19:14)
== END 2024-12-17 19:41 | disposition home or self-care (01) ==
PROVIDERS: Emergency Provider Nurse Practitioner Family; PCP Family Medicine
DX: S82.832A Other fracture of upper and lower end of left fibula, initial encounter for closed fracture (principal); W13.8XXA Fall from, out of or through other building or structure, initial encounter; S80.02XA Contusion of left knee, initial encounter; M25.462 Effusion, left knee; S81.801A Unspecified open wound, right lower leg, initial encounter; S80.811A Abrasion, right lower leg, initial encounter; Z23 Encounter for immunization
CPT/HCPCS: 29515; 73564; 73610; 90471; 90715; 99214; G0463

== ENCOUNTER 2025-01-16 12:10 | Outpatient (RCR) | payer BC, SELFPAY ==
[2025-01-16 12:30] VITALS: BMI 24.0
--- NOTE | 2025-01-30 10:20 | PCWOUND ---
WOCN NOTE Patient did not show up for her appointment, no call was made to cancel or reschedule.
== END 2025-04-01 10:29 | disposition home or self-care (01) ==
LOC: ANHWOC 12:10
PROVIDERS: PCP Family Medicine; Visit Provider Nurse Practitioner Family
DX: S81.801A Unspecified open wound, right lower leg, initial encounter (principal)
CPT/HCPCS: 99214; G0463

== ENCOUNTER 2025-03-26 09:50 | Outpatient (CLI) | payer BC, SELFPAY ==
--- NOTE | ~2025-03-26 | XR_ITS ---
XR elbow RT 2V 03/26/2025 10:03 Indication: Right elbow pain Procedure: 2 views right elbow Comparison: No prior studies for comparison. Findings: No fracture, subluxation or dislocation. No joint effusion. No foreign bodies. Impression: 1: No significant bone or joint abnormality. Reviewed, dictated and finalized at location A. Impression: 1: No significant bone or joint abnormality.
--- NOTE | ~2025-03-26 | XR_ITS ---
XR elbow LT 2V 03/26/2025 10:03 INDICATION: Left elbow pain PROCEDURE: 2 views left elbow COMPARISON: 02/26/2025 FINDINGS: Fracture, dislocation or subluxation is not identified. The soft tissues appear within norm al limits. No foreign bodies are identified. IMPRESSION: 1: NO ACUTE BONE OR JOINT ABNORMALITY IDENTIFIED. Reviewed, dictated and finalized at location A.
== END 2025-03-26 09:51 | disposition home or self-care (01) ==
PROVIDERS: PCP Family Medicine; Visit Provider Nurse Practitioner Adult Health
DX: M25.521 Pain in right elbow (principal); M25.522 Pain in left elbow
CPT/HCPCS: 73070

== ENCOUNTER 2025-03-29 09:36 | Outpatient (CLI) | payer BC, SELFPAY ==
--- NOTE | ~2025-03-29 | XR_ITS ---
3 VIEWS LUMBAR SPINE Ordering provider: Aidee Newton APRN History: . M54.50 - Low back pain, unspecified . Comparison: None. FINDINGS: VERTEBRAL BODIES:Postoperative changes at the level of L4-L5. Highly suggestive spondylolysis at the level of L5-S1. No visible fracture or subluxation. DISK SPACES: Disc spacer at the level of L4-L5. Bilateral hip osteoarthritic changes. Bilateral sacroiliacs. SOFT TISSUES: Normal. IMPRESSION: No acute osseous abnormality lumbar spine. Postoperative changes in the lower lumbar area. Reviewed, dictated and finalized at location A.
--- OUTSIDE RECORDS SUMMARY | 2025-03-29 09:45 | XMS_ITS | Clinical Summary ---
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 This disclosure is being madepursuant to the Care Everywhere program and may not contain all information available regarding this patient. Last updated 18.[facility] Allergies No known active allergies Medications * Be aware that medications may not be up to date on this document. Alwaysverify current medications with the patient. estradiol (Estrace) 2 MG tablet Take 1 (one) tablet by mouth once daily 3 Active lisdexamfetami ne (Vyvanse) 70 MG capsule Take 1 (one) capsule by mouth once daily 4 Active meloxicam (Mobic) 15 MG tablet Take 1 (one) tablet by mouth once daily 4 Active cyclobenzaprin e (Flexeril) 10 MG tablet TAKE 1 TABLET BY MOUTH AT BEDTIME NEEDED FOR MUSCLE SPASM 4 Active cetirizine-pse udoephedrine 12hr (ZyrTEC-D) 5-120 MG tablet Active mirabegron ER 24hr (Myrbetriq) 25 MG tablet Take 1 (one) tablet by mouth 4 Active testosterone enanthate (Delatestryl) injection inject 20 mg subcutaneously weekly for 90 days 5 Active B-D TB SYRINGE 1CC/27GX1/2 27G X 1/2 1 ML syringe USE WITH TESTOSTERONE INJECTIONS ONCE EVERY 10 DAYS. 5 Active mupirocin (Bactroban) 2 % ointment APPLY OINTMENT TOPICALLY TO AFFECTED AREA TWICE DAILY 5 Active Active Problems Problem Noted Date Diagnosed Date Autoimmune thyroiditis 01/22/2025 Menopause present 01/22/2025 Polyarthritis 01/22/2025 Vitamin D deficiency 01/22/2025 Sensorineural hearing loss 09/18/2024 Dysfunction of both eustachian tubes 07/12/2024 Eustachian tube disorder 07/12/2024 S/P cervical spinal fusion 11/18/2023 Arthralgia of hip 09/22/2022 Degeneration of intervertebral disc of lumbar re gion 09/22/2022 Low back pain 09/22/2022 Spondylolisthesis at L4-L5 level 06/06/2022 Trochanteric bursitis of right hip 07/21/2020 Resolved Problems Problem Noted Date Diagnosed Date Resolved Date Trochanteric bursitis of left hip 07/21/2020 05/18/2024 Encounters Date Type Department Care Team Description 01/23/2025 10:45 AM CDT [facility] [address] [place] [id number] Bryan Staley MD S/P cervical spinal fusion (Primary Dx); Cervical myelopathy 01/23/2025 Travel 01/22/2025 10:39 AM CDT - 01/22/2025 11:59 PM CDT Hospital Encounter [facility] [address] [place] [phone] Dory Gonzalez APRN-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 Monthly or less 11/18/2023 Q2: How many drinks containi ng alcohol do you have on a typical day when you are drinking? 3 or 4 11/18/2023 Q3: How often do you have si x or more drinks on one occasion? Less than monthly 11/18/2023 Overall Financial Resource Strain (CARDIA) Answe r Date Recorded How hard is it for you to pa y for the very basics like food, housing, medical care, and heating? Not hard at all 11/18/2023 PHQ-2 Answer Date Recorded Patient Health Questionnaire-2 Score 0 11/29/2024 [facility] - Occupational Stress Questionnaire Answer Date Recorded Do you feel stress - tense, restless, nervous, or anxious, or unable to sleep at night because your mind is troubled all the time - these days? Not at all 11/18/2023 Hunger Vital Sign Answer Date Recorded Within the past 12 months, y ou worried that your food would run out before you got the money to buy more. Never true 11/18/19 24 Within the past 12 months, t he food you bought just didn't last and you didn't have money to get more. Never true 11/18/2023 PRAPARE - Transportation Answer Date Re corded In the past 12 months, has l ack of transportation kept you from medical appointments or from getting medications? No 10/31 In the past 12 months, has l ack of transportation kept you from meetings, work, or from getting things needed for daily living? No 11/18/2023 Housing Stability Vital Sign Answer Mike e Recorded In the last 12 months, was t here a time when you were not able to pay the mortgage or rent on time? No 11/18/2023 In the last 12 months, how many places have you lived? 2 11/18/2023 In the last 12 months, was t here a time when you did not have a steady place to sleep or slept in a assisted (including now)? No 11/18/2023 Comments No Sex and Gender Information Value Date Recorded Sex Assigned at Female 03/08/2022 11:43 PM CDT Legal Sex Female 6:11 AM PLATE HANGER Gender Identity Female 03/08/2022 11:43 PM CDT Sexual Orientation Straight 03/08/2022 11 :43 PM CDT Last Filed Vital Signs Vital Sign Reading Time Taken Comments Blood Pressure 129/90 01/23/2025 11:08 AM CDT Pulse 85 01/23/2025 11:08 AM CDT Temperature 36.7 C (98 F) 01/23/2025 11:08 AM CDT Respiratory Rate 18 08/15/2024 9:15 AM CDT Oxygen Saturation 98% 01/23/2025 11:08 AM CDT Inhaled Oxygen Concentration 21% 06/10/2022 4 :23 AM CDT Weight 68 kg (150 lb) 01/23/2025 11:08 AM CDT Height 162.6 cm (5' 4) 11/29/2024 8:23 AM PLATE HANGER Body Mass Index 25.75 11/29/2024 8:23 AM PLATE HANGER Plan of Treatment Health Maintenance Due Date Last Done Comments COLOGUARD (AGES 45-75) - COLON CA SCREENING 1969 COLON MONITORING 1969 COLONOSCOPY - COLON CA SCREENING 1969 CT COLONOGRAPHY - COLON CA SCREENING 1969 Colorectal Cancer Screening 1969 FIT - COLON CA SCREENING 1969 FLEX SIG - COLON CA SCREENING 1969 LIPID TESTING 1969 MAMMOGRAM 1969 PAP SMEAR 1969 HIV SCREENING 02/08/1984 HEPATITIS C SCREENING 02/03/1987 DTAP/TDAP/TD VACCINES (1 - Tdap) 02/08/1988 HEPATITIS B VACCINE (1 of 3 - 19+ 3-dose series) 02/08/1988 PNEUMOCOCCAL VACCINE 50+ (1 of 1 - PCV) 2019 ZOSTER VACCINE (1 of 2) 2019 COVID-19 VACCINE ( - season) 2024 12/01/2021, 02/24/2021, 02/03/2021 INFLUENZA VACCINE (Season Ended) 2025 08/16/2015 SCREENING FOR DIABETES 11/18/2026 , 11/01/2023, 06/10/2022, Additional history exists DEPRESSION SCREENING Completed 11/29/2024, 03/30/2024, 09/22/2022 HIB VACCINE Aged Out No longer eligi ble based on patient's age to complete this topic HPV VACCINE Aged Out No longer eligi ble based on patient's age to complete this topic MENINGOCOCCAL (Group B) VACCINE SHARED DECISION-MAKING Aged Out No longer eligible based on patient's age to complete this topic MENINGOCOCCAL GROUPS A/C/Y/W VACCINE Aged Out No longer eligible based on patient's age to complete this topic Medical Devices Implanted Type Area Program Medical Director Device Identifier Shelf Expiration Date Model / Serial / Lot Stimulan Rapid Cure Implanted:Qty: 1 on 06/07/2022 by Bryan Staley MD at [facility] N/A: Spine Lumbar Biocompstes 02/27/2025 [id number] / / [id number] Description:mixed with 500mg vancomycin powder Screw Set Spne [place] 5500 Ser Implanted:Qty: 4 on 06/07/2022 by Bryan Staley MD at [facility] N/A: Spine Lumbar [employer] [id number] / / 7.5 X 35mm [place] Screw Implanted:Qty: 2 on 06/07/2022 by Bryan Staley MD at [facility] N/A: Spine Lumbar [employer] [id number] / / 7.5 X 45mm [place] Screw Implanted:Qty: 2 on 06/07/2022 by Bryan Staley MD at [facility] N/A: Spine Lumbar [employer] [id number] / / F3d Straight 13mm Implanted:Qty: 2 on 06/07/2022 by Bryan Staley MD at [facility] N/A: Spine Lumbar [employer] 06/10/2026 [id number] / / [id number] Kore Fiber Strip 2.5cm X 5cm Implanted:Qty: 1 on 06/07/2022 by Bryan Staley MD at [facility] N/A: Spine Lumbar 10/22/2023 [id number] / [id number] / Korefiber Strip 2.5cm X 5cm Implanted:Qty: 1 on 06/07/2022 by Bryan Staley MD at [facility] N/A: Spine Lumbar 10/22/2023 [id number] / [id number] / 40mm Gilmar Cocr Implanted:Qty: 2 on 06/07/2022 by Bryan Staley MD at [facility] N/A: Spine Lumbar [employer] [id number] / / Screw 3.5mm 18mm Biased Ang Spne Implanted:Qty: 4 on 11/18/2023 by Bryan Staley MD at [facility] N/A: Spine Cervical [employer] [id number] / / Description:vendor tray Screw 3.5mm 20mm Biased Ang Spne Implanted:Qty: 2 on 11/18/2023 by Bryan Staley MD at [facility] N/A: Spine Cervical [employer] [id number] / / Description:vendor tray Screw Set Spnl 3500 Ser Implanted:Qty: 8 on 11/18/2023 by Bryan Staley MD at [facility] N/A: Spine Cervical [employer] [id number] / / Description:vendor tray Kore Fiber Strip [id number] Implanted:Qty: 1 on 11/18/2023 by Bryan Staley MD at [facility] N/A: Spine Cervical Musculoskeletal Transplant Foundati 08/12/2025 [id number] / [id number] / 40 Mm Gilmar Implanted:Qty: 2 on 11/18/2023 by Bryan Staley MD at [facility] N/A: Spine Cervical [employer] [id number] / / Description:vendor tray 80 Mm Gilmar Implanted:Qty: 1 on 11/18/2023 by Bryan Staley MD at [facility] N/A: Spine Cervical [id number] / / Description:vendor tray Screw 3.5mm 16mm Biased Ang Spne Implanted:Qty: 2 on 11/18/2023 by Bryan Staley MD at [facility] N/A: Spine Cervical [employer] [id number] / / Description:vendor tray Procedures Procedure Name Priority Date/Time Associated Diagnosis Comments XR CERVICAL SPINE 2 OR 3VW Routine 01/22/2025 10:48 AM CDT S/P cervical spinal fusion COMPREHENSIVE METABOLIC PANEL JESSICA 11/18/2023 4:33 PM PLATE HANGER from Last 3 Months or Most Recently Relevant to Health Maintenance Results * XR Cervical Spine 2 or 3Vw (01/22/2025 10:48 AM CDT) Anatomical Region Laterality Modality Spine Digital Radiogra phy 01/23/2025 9:17 AM CDT Impressions 01/23/2025 12:05 PM CDT IMPRESSION: Instrumented posterior spinal fusion at C4-C7 with unchanged alignment. > Dictated by [facility] (radiology supervisor). IPaul MD have personally reviewed and interpreted this examination/study. > Interpreting Provider: Paul Keyes MD on 01/23/2025 12:05 PM Narrative 01/23/2025 12:05 PM CDT EXAMINATION: XR CERVICAL SPINE 2 OR 3VW 01/22/2025 10:48 AM HISTORY: Z98.1: S/P cervical spinal fusion COMPARISON: No prior study is available for comparison. FINDINGS: Mild retrolisthesis of C4 over C5 and C5 over C6 and C6 over C7 is similar to prior. Posterior spinal fusion hardware C4 C7 levels. No acute fracture or compression deformity is identified. The intervertebral disc spaces are preserved. The predental interval and prevertebral soft tissues are normal. Bone density is normal. Procedure Note Paul Keyes MD - 01/23/2025 EXAMINATION: XR CERVICAL SPINE 2 OR 3VW 01/22/2025 10:48 AM HISTORY: Z98.1: S/P cervical spinal fusion COMPARISON: No prior study is available for comparison. FINDINGS: Mild retrolisthesis of C4 over C5 and C5 over C6 and C6 over C7 issimilar to prior. Posterior spinal fusion hardware C4 C7 levels. No acutefracture or compression deformity is identified. The intervertebral disc spacesare preserved. The predental interval and prevertebral soft tissues arenormal. Bone density is normal. IMPRESSION: Instrumented posterior spinal fusion at C4-C7 with unchanged alignment. > Dictated by Sravan Alarcon, [facility] (radiology supervisor). I, Paul Keyes MD have personally reviewed and interpreted this examination/study. > Interpreting Provider: Paul Keyes MD on 01/23/2025 12:05 PM Dory Gonzalez CLINICAL RESEARCH MANAGER-[facility] O RDERABLES Final Result * (ABNORMAL) COMPREHENSIVE METABOLIC PANEL (11/18/2023 4:33 PM PLATE HANGER) Glucose 127(H) 70 - 105 mg/dL 11/18/2023 5:03 PM PLATE HANGER [facility] Sodium 136 136 - 145 mmol/L 11/18/2023 5:03 PM PLATE HANGER [facility] Potassium 3.8 3.5 - 5.1 mmol/L 11/18/2023 5:03 PM PLATE HANGER [facility] Chloride 106 98 - 107 mmol/L 11/18/2023 5:03 PM PLATE HANGER [facility] CO2 23 22 - 29 mmol/L 11/18/2023 5:03 PM [facility] Calcium 7.9(L) 8.4 - 10.4 mg/dL 11/18/2023 5:03 PM PLATE HANGER [facility] Anion Gap 7 6 - 16 mmol/L 11/18/2023 5:03 PM PLATE HANGER [facility] BUN 13 7 - 26 mg/dL 11/18/2023 5:03 PM [facility] Creatinine 0.67 0.57 - 1.11 mg/dL 11/18/2023 5:03 PM [facility] Alkaline Phosphatase 71 40 - 150 U/L 11/18/2023 5:03 PM PLATE HANGER [facility] ALT 16 0 - 55 U/L 11/18/2023 5:03 PM PLATE HANGER [facility] AST 21 5 - 34 U/L 11/18/2023 5:03 PM [facility] Protein Total 6.0(L) 6.4 - 8.3 gm/dL 11/18/2023 5:03 PM PLATE HANGER [facility] Albumin 3.4 3.4 - 5.0 gm/dL 11/18/2023 5:03 PM PLATE HANGER [facility] Bilirubin Total 0.4 0.2 - 1.2 mg/dL 11/18/2023 5:03 PM PLATE HANGER [facility] eGFR by CKD-EPI >90 >=90 mL/min/1.7 3 m2 11/18/2023 5:03 PM PLATE HANGER [facility] Blood BLOOD SPECIMEN / Unknown Lab Venipuncture / Unknown 11/18/2023 4:33 PM PLATE HANGER 11/18/2023 4:41 PM PLATE HANGER Mindy Martínez CLINICAL RESEARCH MANAGER-BAND REAMER MACHINE OPERATOR LAB - CHEMISTRY ORDE MARY BETH Final Result Performing Organization Address City/State/[facility] Co de Phone Number [facility] [address] [place], [place] [id number] from Last 3 Months or Most Recently Relevant to Health Maintenance Insurance [facility] [address] [place] [phone] Advance Directives * Full Code (Latest Code Status on File) Date Activated Date Inactivated Comments 11/18/2023 3:48 PM 11/22/2023 2:57 PM * Full Code Date Activated Date Inactivated Comments 06/07/2022 12:09 PM 06/10/2022 1:25 PM * Full Code Date Activated Date Inactivated Comments 06/07/2022 12:09 PM 06/07/2022 12:09 PM Care Teams Refinery 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
--- OUTSIDE RECORDS SUMMARY | 2025-03-29 09:45 | XMS_ITS | Data Portability ---
Author Organization [place] - [facility], Main Office Address [address] [place] [address] Care Team Providers Care Client Reporting Associate Name Role Phone SMITH JOE Primary Care Provider Assessment No assessment recorded. Plan of Treatment Reminders Order Date Submit Date Provider Last Modified By Organization Details Last Modified Time Details Appointments None recorded. Lab None recorded. Referral None recorded. Procedures eustachian tube balloon dilation (PROC) 2023 024 [email or web address] Not available 12:26:37 Surgeries None recorded. Imaging audiogram + tympanogram 2023 024 [email or web address] 42 [facility], [address] [facility], [facility], [place], [address], 5 08:26:49 Medication Orders Ciprodex 0.3 %-0.1 % ear drops,suspe nsion 2023 024 [email or web address] [facility] [place], [address], 4 11:18:52 Patient TargetsNo targets recorded. Patient Instructions Encounter Date Encounter Id Patient Instructions Last Modified By Organization Details Last Modified Time 07/12/2024 [id number] Discussed possible ETBD with tube placement. She wishes to try treatment before being placed on Dr. Brand scheduled for surgical consultation. [email or web address] Not available 07/12/2024 12:04:11 09/19/2024 [id number] Discussed that i t can take up to 6-8 weeks to notice a vast improvement in hearing and ear improvement. She will obtain an audiogram given current hearing loss with hearing aid use. We will follow-up when results become available. [email or web address] Not available 09/19/2024 11:13:28 Reason for Referral None Reported. Problems Name Problem SNOMED Code Status Onset Date Resolution Date Notes Provider Name and Address Organization Details Recorded Time Eustachian tube disorder 80437707 Active 2023 SHERRY Crystal, [facility] 4 11:58:43 Dysfunction of bilateral eustachian tubes 2965084356265 100 Active 2023 DEEP hWitten [address] [facility], [address], [place], [address], [facility] 4 12:03:13 Sensorineur al hearing loss 50997737 Active 2023 SHERRY Crystal, [facility] 11:07:57 Problem Notes None recorded. Procedures Surgical History Date Name Laterality Status Provider Name and Address Organization Details Recorded Time tonsillectomy completed Nikia Lizarraga RN [facility] 07/12/2024 11:46:43 inflation of Eustachian tube using balloon completed Nikia Lizarraga RN [facility] 09/19/2024 08:25:36 myringotomy and insertion of tympanic ventilation tube completed Nikia Lizarraga RN [facility] 09/19/2024 08:25:48 Imaging Results None recorded. Procedure Notes None recorded. Medical Equipment None Reported. Allergies No known drug allergies Medications Name Sig Start Date Stop Date Status Note LastModified by Organization Details LastModified Time cetirizine 5 mg-pseudoep hedrine ER 120 mg tablet,exte nded release,12h r active Not Available Not Available Not Available cyclobenzap rine 10 mg tablet TAKE 1 TABLET BY MOUTH THREE TIMES DAILY NEEDED FOR MUSCLE SPASM active Not Available Not Available No t Available methocarbam ol 500 mg tablet TAKE 1 TABLET BY MOUTH EVERY 6 HOURS NEEDED FOR MUSCLE SPASM 07/12 completed Not Available Not Available Not Available prednisone 10 mg tablet TAKE 3 TABLETS BY MOUTH ONCE DAILY FOR 5 DAYS 07/12 completed Not Available Not Available Not Available tizanidine 2 mg tablet TAKE 1 TABLET BY MOUTH THREE TIMES DAILY NEEDED FOR MUSCLE SPASTICIT Y active Not Available Not Available No t Available meloxicam 15 mg tablet TAKE 1 TABLET BY MOUTH ONCE DAILY 07/12 completed Not Available Not Available Not Available cefadroxil 500 mg capsule TAKE 1 CAPSULE BY MOUTH TWICE DAILY. TO START 2 DAYS PRIOR TO DENTAL APPOINTME NT AND STOP 1 DAY AFTER APPOINTME NT - 4 DAYS 07/12 completed Not Available Not Available Not Available amoxicillin 875 mg tablet TAKE 1 TABLET BY MOUTH TWICE DAILY FOR 10 DAYS 07/12 completed Not Available Not Available Not Available oxycodone-a cetaminophe n 10 mg-325 mg tablet TAKE 1 TABLET BY MOUTH EVERY 4 HOURS NEEDED FOR PAIN 07/12 completed Not Available Not Available Not Available dextroamphe tamine-amph etamine ER 20 mg 24hr capsule,ext end release TAKE 1 CAPSULE BY MOUTH ONCE DAILY 07/12 completed Not Available Not Available Not Available hydrocodone 7.5 mg-acetamin ophen 325 mg tablet TAKE 1 TABLET BY MOUTH EVERY 4 HOURS NEEDED. active Not Available Not Available No t Available gabapentin 300 mg capsule TAKE 1 CAPSULE BY MOUTH THREE TIMES DAILY 07/12 completed Not Available Not Available Not Available estradiol 2 mg tablet TAKE 1 TABLET BY MOUTH ONCE DAILY active Not Available Not Available No t Available testosteron e enanthate 200 mg/mL intramuscul ar oil INJECT 20MG (0.1ML) SUBCUTANE OUSLY ONCE EVERY 10 DAYS active Not Available Not Available No t Available BD Tuberculin Syringe 1 mL 26 gauge x 3/8 USE WITH TESTOSTER ONE INJECTION S ONCE EVERY 10 DAYS active Not Available Not Available No t Available dextroamphe tamine-amph etamine ER 30 mg 24hr capsule,ext end release TAKE 1 CAPSULE BY MOUTH ONCE DAILY 07/12 completed Not Available Not Available Not Available ciprofloxac in 0.3 %-dexametha sone 0.1 % ear drops,suspe nsion INSTILL 4 DROPS INTO AFFECTED EAR(S) TWICE DAILY FOR 7 DAYS 08/14 completed Not Available Not Available Not Available nitrofurant oin monohydrate /macrocryst als 100 mg capsule TAKE 1 CAPSULE BY MOUTH EVERY 12 HOURS FOR 5 DAYS. MUST ADMINISTE R WITH A MEAL/FOOD active Not Available Not Available No t Available lisdexamfet amine 70 mg capsule TAKE 1 CAPSULE BY MOUTH ONCE DAILY active Not Available Not Available No t Available BD Regular Bevel [place] 18 gauge x 1 1/2 USE WITH TESTOSTER ONE INJECTION S ONCE EVERY 10 DAYS active Not Available Not Available No t Available Myrbetriq 25 mg tablet,exte nded release TAKE 1 TABLET BY MOUTH ONCE DAILY 07/12 completed Not Available Not Available Not Available Vitals Date Recorded Body weight Body mass index (BMI) Body height Body temperature Provider Name and Address Organization Details Last Updated DateTime 07/12/2024 05056.93 g 24 kg/m2 162.56 cm 97.8 [degF] Nikia Lizarraga RN [facility] 07/12/2024 11:48:07 Date Recorded Body height Body mass index (BMI) Body weight Body temperature Provider Name and Address Organization Details Last Updated DateTime 08/14/2024 162.56 cm 24.6 kg/m2 80149.43 g 97.9 [degF] Nikia Lizarraga RN [facility] 08/14/2024 11:18:46 Date Recorded Body height Body mass index (BMI) Body weight Body temperature Provider Name and Address Organization Details Last Updated DateTime 09/19/2024 162.56 cm 24.1 kg/m2 54502.09 g 97.7 [degF] Nikia Lizarraga RN [facility] 09/19/2024 11:02:40 Social History None recorded. Functional Status Question Answer Note LastModified by Organizat ion Details LastModified Time What is your level of alcohol consumption? Occasional [email or web address] Information not available 07/11/2024 Mental Status None recorded. Family History Nothing Reported Notes:SISTER: THROAT CANCER Medical History Condition Response MRSA N ALLERGIES/HAYFEVER N BACK INJECTIONS N LUNG DISEASE/DISORDER N ESRD N HISTORY OF DRUG ABUSE N INSOMNIA N COPD N RADIATION / CHEMOTHERAPY N HIGH CHOLESTEROL / HYPERLIPIDEMIA N HYPERTHYROIDISM N PVD N BLOOD DISEASES N EAR OR HEARING PROBLEMS N HYPOTHYROIDISM Y SHINGLES N DEPRESSION (INCLUDING POST ) N BACK / NECK PROBLEMS N HAVE YOU BEEN HOSPITALIZED OR SEEN IN [facility] IN THE PAST YEAR ? N FAILED BACK SYNDROME N STROKE/TIA N POLYCYSTIC OVARIES N OBESITY N ANEURYSM N HISTORY WITH COMPLICATIONS WITH ANESTHES IA ? N Do you have Advance directive? N USE OF BLOOD THINNERS N NO SIGNIFICANT PAST MEDICAL HISTORY N DIABETES, TYPE N VON WILLIBRAND'S DISEASE N PARATHYROID DISEASE N ENT N SEASONAL ALLERGIES N HEARTBURN / REFLUX N POST LAMINECTOMY SYNDROME N HEPATITIS / LIVER DISEASE N SLEEP DISORDER N ARTERIAL INSUFFICIENCY N SEIZURES/EPILEPSY N HEADACHES/MIGRAINES N CHF N PACEMAKER N DIZZINESS N HEART DISEASE/HEART PROBLEMS N AIDS/HIV N NEUROPSYCHOLOGICAL N HYPERTENSION N CANCER: SPECIFY N TOURETTE'S N BLOOD TRANSFUSION N ANESTHESIA COMPLICATIONS N ANEMIA/BLOOD DISORDER N CHRONIC EAR INFECTIONS N ATRIAL FIBRILLATION N AUTOIMMUNE DISEASE N TUBERCULOSIS N Gynecological HistoryNo gynecological history recorded. Obstetrics History GPAL:G 0 P 0 0 0 0 Past Encounters Encounter ID Performer Location Encounter Start Date Encounter Closed Date Diagnosis/Indication Diagnosis SNOMED-CT Code Diagnosis ICD10 Code Diagnosis Note [id number] [facility] [address] [place] [address] 07/12/2024 11:27:27 07/12/2024 12:04:47 Dysfunction of bilateral eustachian tubes 0540106653 714367 H69.93 [id number] Sergo Brand [facility] [address] [place] [address] 08/14/2024 11:00:58 08/15/2024 16:07:26 Dysfunction of bilateral eustachian tubes 6108234679 686448 H69.93 [id number] Sergo Brand MD [facility] [address] [place] [address] 09/19/2024 10:57:56 09/19/2024 11:13:56 Sensorineural hearing loss 44657615 H90.5 Postoperative visit 1836 15809 Z48.89 09/10/2024 postoperat maricel from a bilateral ETBD with tube placement. Health Concerns Section Related Observation LastModified by Organization Detai ls LastModified Time None Recorded Concern Status LastModified by Organization Details LastModified Time None Recorded Advance Directives Directive None Recorded Payers Encounter Date Sequence Insurance Name Policy Number Policy Mclain Covered Member ID Mclain Member ID Guarantor Name 07/12/2024 1 [place] [id number] 1 Gualberto Grossman [id number] Oumou Grossman 08/14/2024 1 [place] [id number] 1 Gualberto Pabloomar [id number] Oumou Grossman 09/19/2024 1 [place] [id number] 1 Gualberto Grossman [id number] Oumou Grossman Notes Date Note Type Note Provider Name and Address Organization Details Recorded Time 07/12/2024 text/html This patient has a significant past medical history for hypothyroidism and Eustachian tube dysfunction. She presents to the office feeling as if she has possible impacted cerumen bilaterally. She states that she had an ear infection in April of 2024 and was on several rounds of oral antibiotics and eardrops. She states that she does have muffled hearing. She does wear hearing aids but has not been using them since the most recent ear infection. She does notes many ear infections over her lifetime. DEEP Whitten [address] [employer] [place], [address], [employer] [facility] [employer] 07/12/2024 12:04:14 08/14/2024 text/html this patient has bilateral Eustachian tube dysfunction. This has been continuous since April and has been refractory to antibiotics and steroids x2 ear drops. When she was landing she had any pain. She has underlying hearing she does take Maritec Sergo Brand MD [address] [place], [place], [address], [employer] 08/14/2024 11:33:14 09/19/2024 text/html This patient is here for a postop visit for bilateral E TBD with tube placement. This was completed on 09/10/2024. She does report feeling as if her ears feel a bit backed up. She does note hearing loss in which she does wear hearing aids. She is unsure when she last had her audiogram completed. We will obtain an audiogram. DEEP Whitten [address] [employer] [place], [address], [employer] [facility] [employer] 09/19/2024 11:13:31 OBGyn Episode No OBEpisode recorded.
== END 2025-03-29 09:37 | disposition home or self-care (01) ==
PROVIDERS: PCP Family Medicine; Visit Provider Nurse Practitioner Adult Health
DX: M47.816 Spondylosis without myelopathy or radiculopathy, lumbar region (principal)
CPT/HCPCS: 72100

== ENCOUNTER 2025-05-15 08:21 | Outpatient (CLI) | payer BC, SELFPAY ==
--- OUTSIDE RECORDS SUMMARY | 2025-05-15 08:29 | XMS_ITS | Clinical Summary ---
Author Organization [facility] Address [address] [facility] [place] [address] Care Team Providers Care Construction Area Manager Name Role Phone Mann Tran MD Primary Care Provider Source Comments [facility],non-owned Affiliates and Associated Physician Practices is amultiple site organization consisting of ambulatory clinics and hospital sitesin [place], [place], [place] and [place]. This disclosure is being madepursuant to the Care Everywhere program and may not contain all information available regarding this patient. Last updated 18.[facility] Allergies No known active allergies Medications * Be aware that medications may not be up to date on this document. Alwaysverify current medications with the patient. estradiol (Estrace) 2 MG tablet Take 1 (one) tablet by mouth once daily 09/16/20 23 Active lisdexamfetami ne (Vyvanse) 70 MG capsule Take 1 (one) capsule by mouth once daily 03/09/20 24 Active meloxicam (Mobic) 15 MG tablet Take 1 (one) tablet by mouth once daily 02/17/20 24 Active cyclobenzaprin e (Flexeril) 10 MG tablet TAKE 1 TABLET BY MOUTH AT BEDTIME NEEDED FOR MUSCLE SPASM 03/12/20 24 Active cetirizine-pse udoephedrine 12hr (ZyrTEC-D) 5-120 MG tablet Active testosterone enanthate (Delatestryl) injection inject 20 mg subcutaneously weekly for 90 days 11/20/19 25 Active B-D TB SYRINGE 1CC/27GX1/2 27G X 1/2 1 ML syringe USE WITH TESTOSTERONE INJECTIONS ONCE EVERY 10 DAYS. 12/13/19 25 Active mupirocin (Bactroban) 2 % ointment APPLY OINTMENT TOPICALLY TO AFFECTED AREA TWICE DAILY 01/11/20 25 Active pregabalin (Lyrica) 50 MG capsule Take 1 (one) capsule by mouth 2 times daily 04/03/20 25 Active mirabegron ER 24hr (Myrbetriq) 50 MG tablet 03/01/20 25 Active mirabegron ER 24hr (Myrbetriq) 25 MG tablet Take 1 (one) tablet by mouth 10/17/20 24 025 Discontin ued(List Clean-Up) Active Problems Problem Noted Date Diagnosed Date [...] Encounters Date Type Department Care Team Description 05/15/2025 Lab Requisition [facility] [address] [facility] [place] [address] Mann Tran MD 04/17/2025 9:30 AM CDT Office Visit [facility] - Neurosurgery [address] [facility] [place] [address] Bryan Staley MD S/P lumbar fusion (Primary Dx); Acute bilateral low back pain without sciatica 04/17/2025 Travel 04/09/2025 Travel from Last 3 Months Family History [...] Recorded Patient Health Questionnaire-2 Score 0 11/29/2024 [facility] - Occupational Stress [...] place to sleep or slept in a prison (including now)? No 11/18/2023 Comments No Sex and Gender Information Value Date Recorded Sex Assigned at Female 03/08/2022 11:43 PM CDT Legal Sex Female 6:11 AM DIRECTOR SCRIPT Gender Identity Female 03/08/2022 11:43 PM CDT Sexual Orientation Straight 03/08/2022 11 :43 PM CDT Last Filed Vital Signs Vital Sign Reading Time Taken Comments Blood Pressure 136/84 04/17/2025 9:04 AM CDT Pulse 98 04/17/2025 9:04 AM CDT Temperature 36.1 C (97 F) 04/17/2025 9:04 AM CDT Respiratory Rate 18 08/15/2024 9:15 AM CDT Oxygen Saturation 99% 04/17/2025 9:04 AM CDT Inhaled Oxygen Concentration 21% 06/10/2022 4 :23 AM CDT Weight 65.8 kg (145 lb) 04/17/2025 9:04 AM CDT Height 162.6 cm (5' 4) 11/29/2024 8:23 AM DIRECTOR SCRIPT Body Mass Index 24.89 11/29/2024 8:23 AM DIRECTOR SCRIPT Plan of Treatment Health Maintenance Due Date Last Done Comments COLOGUARD (AGES 45-75) - COL ON CA SCREENING 1969 COLON MONITORING 1969 COLONOSCOPY - COLON CA SCREENING 1969 CT COLONOGRAPHY - COLON CA SCREENING 1969 Colorectal Cancer Screening 1969 FIT - COLON CA SCREENING 1969 FLEX SIG - COLON CA SCREENING 1969 LIPID TESTING 1969 MAMMOGRAM 1969 HIV SCREENING 02/08/1984 HEPATITIS C SCREENING 02/03/1987 DTAP/TDAP/TD VACCINES (1 - Tdap) 02/08/1988 HEPATITIS B VACCINE (1 of 3 - 19+ 3-dose series) 02/08/1988 PAP SMEAR 1990 PNEUMOCOCCAL VACCINE 50+ (1 of 1 - PCV) 2019 ZOSTER VACCINE (1 of 2) 2019 COVID-19 VACCINE (2023-2 5 season) 2024 12/01/2021, 02/24/2021, 02/03/2021 INFLUENZA VACCINE (#1) 2025 08/16/2015 DEPRESSION SCREENING Completed 11/29/2024, 03/30/2024, 09/22/2022 HIB [...] A/C/Y/W VACCINE Aged Out No longer eligible b ased on patient's age to complete this topic Medical Devices Implanted Type Area Wood Sash And Frame Carpenter Device Identifier Shelf Expiration Date Model / Serial / Lot Stimulan Rapid Cure Implanted:Qty: 1 on 06/07/2022 by Bryan Staley MD at [facility] N/A: Spine Lumbar Biocompstes 02/27/2025 [id number] / / [id number] Description:mixed with 500mg vancomycin powder Screw Set Spne [place] 5500 Ser Implanted:Qty: 4 on 06/07/2022 by Bryan tSaley MD at [facility] N/A: Spine Lumbar [employer] [id number] / / 7.5 X 35mm [place] Screw Implanted:Qty: 2 on 06/07/2022 by Bryan Staley MD at [facility] N/A: Spine Lumbar [employer] [id number] / / 7.5 X 45mm [place] Screw Implanted:Qty: 2 on 06/07/2022 by Bryan Staley MD at [facility] N/A: Spine Lumbar [employer] [id number] / / [id number] Straight 13mm Implanted:Qty: 2 on 06/07/2022 by Bryan Staley MD at [facility] N/A: Spine Lumbar [employer] 06/10/2026 [id number] / / [id number] Kore Fiber Strip 2.5cm X 5cm Implanted:Qty: 1 on 06/07/2022 by Bryan Staley MD at [facility] N/A: Spine Lumbar 10/22/2023 [id number] / [id number] / Korefiber Strip 2.5cm X 5cm Implanted:Qty: 1 on 06/07/2022 by Bryan Staley MD at [facility] N/A: Spine Lumbar 10/22/2023 [id number] / [id number] / 40mm [place] Cocr Implanted:Qty: 2 on 06/07/2022 by Bryan Staley MD at [facility] N/A: Spine Lumbar [employer] [id number] / / Screw 3.5mm 18mm Biased Ang Spne Implanted:Qty: 4 on 11/18/2023 by Bryan Staley MD at [facility] N/A: Spine Cervical [employer] [place] [id number] / / Description:vendor tray Screw 3.5mm 20mm Biased Ang Spne Implanted:Qty: 2 on 11/18/2023 by Bryan Staley MD at [facility] N/A: Spine Cervical [employer] [place] [id number] / / Description:vendor tray Screw Set Spnl 3500 Ser Implanted:Qty: 8 on 11/18/2023 by Bryan Staley MD at [facility] N/A: Spine Cervical [employer] [id number] / / Description:vendor tray Kore Fiber Strip [id number] Implanted:Qty: 1 on 11/18/2023 by Bryan Staley MD at [facility] N/A: Spine Cervical Musculoskeletal [employer] Found[employer] 08/12/2025 [id number] / [id number] / 40 Mm [place] Implanted:Qty: 2 on 11/18/2023 by Bryan Staley MD at [facility] N/A: Spine Cervical [employer] [id number] / / Description:vendor tray 80 Mm [place] Implanted:Qty: 1 on 11/18/2023 by Bryan Staley MD at [facility] N/A: Spine Cervical [id number] / / Description:vendor tray Screw 3.5mm 16mm Biased Ang Spne Implanted:Qty: 2 on 11/18/2023 by Bryan Staley MD at [facility] N/A: Spine Cervical Core Link [facility] [id number] / / Description:vendor tray Insurance ANTHEM Advance Directives * Full Code (Latest Code Status on File) Date Activated Date Inactivated Comments 11/18/2023 3:48 PM 11/22/2023 2:57 PM * Full Code Date Activated Date Inactivated Comments 06/07/2022 12:09 PM 06/10/2022 1:25 PM * Full Code Date Activated Date Inactivated Comments 06/07/2022 12:09 PM 06/07/2022 12:09 PM Care Teams Construction Area Manager Relationship Specialty Start Date End Date Mann Tran MD [address] [place] [address] PCP - General 10/22/21
--- OUTSIDE RECORDS SUMMARY | 2025-05-15 08:30 | XMS_ITS | Referral Summary ---
Author Organization [facility] [address] Address [address] [place] [address] Care Team Providers Care Step Down Nurse Name Role Phone Mann Tran MD Primary Care Provider + [phone] Allergies Active Allergy Reactions Criticality Noted Date Comments Titanium Unknown 12/17/2024 Medications cyclobenzaprine (FLEXERIL) 10 mg tablet TAKE 1 TABLET BY MOUTH AT BEDTIME NEEDED FOR MUSCLE SPASM Active dextroamphetami ne-amphetamine XR (ADDERALL XR) 20 mg 24 hr capsule Take 1 capsule (20 mg total) by mouth daily 3 Active estradioL (ESTRACE) 2 mg tablet Take 1 tablet (2 mg total) by mouth daily 3 Active lisdexamfetamin e (VYVANSE) 70 mg capsule Take 1 capsule (70 mg total) by mouth daily Active meloxicam (MOBIC) 15 mg tablet 4 Active mirabegron ER (MYRBETRIQ) 25 mg tablet extended release 24 hr Take 1 tablet (25 mg total) by mouth 4 Active testosterone enanthate 200 mg/mL injection Inject 1 mL (200 mg total) into the muscle as instructed every 14 (fourteen) days 4 Active benzonatate (TESSALON) 200 mg capsuleIndicati ons:Acute cough Take 1 capsule (200 mg total) by mouth 3 (three) times a day as needed for cough keep tessalon out of reach of children, especially children under the age of 10, due to possible serious risk such as if ingested by children under the age of 10. 30 capsule Active Active Problems No known active problems Social History Tobacco Use Types Packs/Day Years Used Date Smoking Tobacco: Never Smokeless Tobacco: Never Tobacco Cessation:Counseling Given: Not Answered AUDIT-C Answer Date Recorded Q1: How often do you have a drink containing alc ohol? 2-4 times a month 12/17/2024 Q2: How many drinks containi ng alcohol do you have on a typical day when you are drinking? 1 or 2 12/17/2024 Q3: How often do you have si x or more drinks on one occasion? Less than monthly 12/17/2024 Comments Unknown Sex and Gender Information Value Date Recorded Sex Assigned at Not on file Legal Sex Female 4:53 AM COMMERCIAL REAL ESTATE UNDERWRITER Gender Identity Not on file Sexual Orientation Not on file Last Filed Vital Signs Vital Sign Reading Time Taken Comments Blood Pressure 146/89 12/17/2024 10:48 AM COMMERCIAL REAL ESTATE UNDERWRITER Pulse 91 12/17/2024 10:48 AM COMMERCIAL REAL ESTATE UNDERWRITER Temperature 37.2 C (98.9 F) 10/18/2024 3:39 PM COMMERCIAL REAL ESTATE UNDERWRITER Respiratory Rate 18 12/17/2024 10:48 AM COMMERCIAL REAL ESTATE UNDERWRITER Oxygen Saturation 99% 10/18/2024 3:39 PM COMMERCIAL REAL ESTATE UNDERWRITER Inhaled Oxygen Concentration - - Weight 67.1 kg (148 lb) 12/17/2024 10:48 AM COMMERCIAL REAL ESTATE UNDERWRITER Height 162.6 cm (5' 4) 12/17/2024 10:48 AM COMMERCIAL REAL ESTATE UNDERWRITER Body Mass Index 25.4 12/17/2024 10:48 AM COMMERCIAL REAL ESTATE UNDERWRITER Plan of Treatment Not on file Insurance [employer] CHOICE ANTHEM ACCESS CHOICE Care Teams Step Down Nurse Relationship Specialty Start Date End Date Mann Tran MD [address] [place] [address] PCP - General Family Medicine 05/20/24
--- OUTSIDE RECORDS SUMMARY | 2025-05-15 08:30 | XMS_ITS | Clinical Summary ---
Author Organization [facility] Address [address] [place] [address] Care Team Providers Care Supervisor Fabrication Name Role Phone Jessica May MD Primary Care Provider [phone] Allergies No known active allergies Medications lisdexamfetamin e (VYVANSE) 70 MG capsule Vyvanse Active estradiol (ESTRACE) 2 MG tablet Take 1 tablet (2 mg total) by mouth daily. Active mirabegron ER (MYRBETRIQ) 25 MG 24 hr tablet Take 1 tablet (25 mg total) by mouth. 10/17/2024 Active Immunizations Immunization Administration Dates Next Due Influenza Adult (Generic) 08/16/2015 PFIZER COVID-19 (ORIGINAL FO RMULATION, PURPLE CAP) mRNA, LNP-S, PF, 30 MCG/0.3 ML DOSE 12/01/2021,02/24/2021,02/03/2021 Family History Medical History Relation Comments Liver cancer Father Asthma Mother Head and neck cancer Sister Relation Status Comments Father Mother Sister Social History Tobacco Use Types Packs/Day Years Used Date Smoking Tobacco: Never Smokeless Tobacco: Never Tobacco Cessation:Counseling Given: Yes Alcohol Use Standard Drinks/Week Comments Not Asked 0 (1 standard drink = 0.6 oz pur e alcohol) socially Comments Unknown Sex and Gender Information Value Date Recorded Sex Assigned at Not on file Legal Sex Female 2:00 PM SUPERVISOR LENDING ACTIVITIES Gender Identity Not on file Sexual Orientation Not on file Last Filed Vital Signs Vital Sign Reading Time Taken Comments Blood Pressure 136/88 11/14/2024 2:13 PM SUPERVISOR LENDING ACTIVITIES Pulse 87 11/14/2024 2:13 PM SUPERVISOR LENDING ACTIVITIES Temperature 37.1 C (98.7 F) 11/14/2024 2:13 PM SUPERVISOR LENDING ACTIVITIES Respiratory Rate 18 11/14/2024 2:13 PM SUPERVISOR LENDING ACTIVITIES Oxygen Saturation 97% 11/14/2024 2:13 PM SUPERVISOR LENDING ACTIVITIES RA Inhaled Oxygen Concentration - - Weight 65.3 kg (144 lb) 11/14/2024 2:13 PM SUPERVISOR LENDING ACTIVITIES Height 162.6 cm (5' 4) 11/14/2024 2:13 PM SUPERVISOR LENDING ACTIVITIES Body Mass Index 24.72 11/14/2024 2:13 PM SUPERVISOR LENDING ACTIVITIES Plan of Treatment Health Maintenance Due Date Last Done Comments Colorectal Cancer Screening Colonoscopy (10 Years) 1969 Annual Physical 02/08/1972 Hepatitis C 1987 DTaP, Tdap and Td Vaccines ( 1 - Tdap) 02/08/1988 Hepatitis B Vaccines (1 of 3 - 19+ 3-dose series) 02/08/1988 Mammogram Screening 2009 Pneumococcal Vaccine: 50+ Years (1 of 1 - PCV) 2019 Zoster Vaccines (1 of 2) 2019 COVID-19 Vaccine (4 - 2023-2 5 season) 2024 12/01/2021, 02/24/2021, 02/03/2021 PHQ-2 (Physician [place]) 10/31/2024 Meningococcal B Vaccine Aged Out No l onger eligible based on patient's age to complete this topic Meningococcal Vaccine Aged Out No nicole kathia eligible based on patient's age to complete this topic RSV Immunizations Under 20 Months Aged Out No longer eligible b ased on patient's age to complete this topic Insurance Care Teams Supervisor Fabrication Relationship Specialty Start Date End Date Jessica May MD [facility] [place] [address] PCP - General Internal Medicine-Endocrinology, Diabetes & Metabolism 11/06/24
--- OUTSIDE RECORDS SUMMARY | 2025-05-15 08:30 | XMS_ITS | Clinical Summary ---
Author Organization [facility] [address] Address [address] [place] [address] Care Team Providers Care Associate Property Manager Name Role Phone Mann Tran MD Primary Care Provider [phone] Allergies Active Allergy Reactions Criticality Noted Date [...] Active Active Problems No known active problems Surgical History Surgery Date Site/Laterality Comments BACK SURGERY C4-C7 fusion L4 and L5 was in 2021 Social History Tobacco Use Types Packs/Day Years [...] on file Legal Sex Female 4:53 AM IRRIGATION WORKER Gender Identity Not on file Sexual Orientation Not on file Obstetrics History Last Filed Vital Signs Vital Sign Reading Time Taken Comments Blood Pressure 146/89 12/17/2024 10:48 AM IRRIGATION WORKER Pulse 91 12/17/2024 10:48 AM IRRIGATION WORKER Temperature 37.2 C (98.9 F) 10/18/2024 3:39 PM IRRIGATION WORKER Respiratory Rate 18 12/17/2024 10:48 AM IRRIGATION WORKER Oxygen Saturation 99% 10/18/2024 3:39 PM IRRIGATION WORKER Inhaled Oxygen Concentration - - Weight 67.1 kg (148 lb) 12/17/2024 10:48 AM IRRIGATION WORKER Height 162.6 cm (5' 4) 12/17/2024 10:48 AM IRRIGATION WORKER Body Mass Index 25.4 12/17/2024 10:48 AM IRRIGATION WORKER Plan of Treatment Health Maintenance Due Date Last Done Comments Breast Cancer Screening-Mammogram 1969 Cervical Cancer Screening 1969 Colon Cancer Screening-Colonoscopy 1969 Depression Screening 1969 Hepatitis C Screening 1969 DTaP/Tdap/Td Vaccine (1 - Tdap) 02/08/1980 Hepatitis B Screening 1987 Regular Well Visit/Exam 18-64 1987 Zoster Vaccine (1 of 2) 2019 Covid-19 Vaccine (2023-2 5 season) 2024 12/01/2021, 02/24/2021, 02/03/2021 Influenza Vaccine (#1) 2025 08/16/2015 Pneumococcal vaccine <65 Aged Out No longer eligible based on patient's age to complete this topic Insurance [employer] ACCESS CHOICE [employer] ACCESS CHOICE Care Teams Associate Property Manager Relationship Specialty Start Date End Date Mann Tran MD [address] [place] [address] PCP - General Family Medicine 05/20/24
--- OUTSIDE RECORDS SUMMARY | 2025-05-15 08:30 | XMS_ITS | Encounter Summary ---
Author Organization [facility] Address [address] [facility] [address] Care Team Providers Care Kitchen Utility Associate Name Role Phone Mann Tran MD Primary Care Provider [phone] Encounter Details Date Type Department Care Team (Late st Contact Info) Description 05/15/2025 Lab Requisition [facility] [address] [facility], [place] [id number] Mann Tran MD [address] [place] [address] Social History Tobacco Use Types Packs/Day Years Used Date Smoking Tobacco: Never Smokeless Tobacco: Never Alcohol Use Standard Drinks/Week Comments Yes 0 [...] Patient Health Questionnaire-2 Score 0 11/29/2024 [facility] - Occupational Stress [...] PM CDT Legal Sex Female 6:11 AM SENIOR CREDIT OFFICER Gender Identity Female 03/08/2022 11:43 PM CDT Sexual Orientation Straight 03/08/2022 11 :43 PM CDT documented as of this encounter Functional Status * Is person deaf or have serious hearing difficulty? Answer Date of Assessment Author No 11/18/2023 3:53 PM SENIOR CREDIT OFFICER Gege Quiroz RN * Is person blind or have serious difficulty seeing? Answer Date of Assessment Author No 11/18/2023 3:53 PM SENIOR CREDIT OFFICER Gege Quiroz RN * Does person have serious difficulty walking/climbing stairs? Answer Date of Assessment Author No 11/18/2023 3:53 PM Gege Zhao RN * Does person have difficulty dressing/bathing? Answer Date of Assessment Author No 11/18/2023 3:53 PM Gege Zhao RN * Does person have difficulty doing errands alone? Answer Date of Assessment Author Yes 11/18/2023 3:53 PM Gege Zhao RN documented as of this encounter Mental Status * Does person have difficulty concentrating/remembering/making decisions? Answer Entry Date Author No 11/18/2023 3:53 PM Gege Zhao RN documented in this encounter Plan of Treatment Pending Results Name Type Priority Associated Diagnoses Date /Time DERMATOPATHOLOGY Pathology Cytology Routine 05/14/2025 12:00 AM CDT documented as of this encounter Visit Diagnoses Not on filedocumented in this encounter Care Teams Kitchen Utility Associate Relationship Specialty Start Date End Date Mann Tran MD [address] [place] [address] PCP - General 10/22/21 documented as of this encounter
--- OUTSIDE RECORDS SUMMARY | 2025-05-15 08:30 | XMS_ITS | Data Portability ---
Author Organization [facility], Main Office Address [address] [place] [address] Care Team Providers Care Band Sewer Name Role Phone SMITH JOE Primary Care Provider [phone] Assessment No assessment recorded. Plan of Treatment Reminders Order Date Submit Date Provider Last Modified By Organization Details Last Modified Time Details Appointments None recorded. Lab None recorded. Referral None recorded. Procedures eustachian tube balloon dilation (PROC) 2023 024 [email or web address] Not available 12:26:37 Surgeries None recorded. Imaging audiogram + tympanogram 2023 024 [email or web address] [address] [facility], [address] [facility], [facility], [place], [address], 5 08:26:49 Medication Orders Ciprodex 0.3 %-0.1 % ear drops,suspe nsion 2023 024 [email or web address] [facility] [place], [address], 4 11:18:52 Patient TargetsNo targets recorded. Patient Instructions Encounter Date Encounter Id Patient Instructions Last Modified By Organization Details Last Modified Time 07/12/2024 [id number] Discussed possible ETBD with tube placement. She wishes to try treatment before being placed on Dr. Brand scheduled for surgical consultation. [email or web address] Not available 07/12/2024 12:04:11 09/19/2024 [id number] Discussed that i t can take up to 6-8 weeks to notice a vast improvement in hearing and ear improvement. She will obtain an audiogram given current hearing loss with hearing aid use. We will follow-up when results become available. [email or web address] Not available 09/19/2024 11:13:28 Reason for Referral None Reported. Problems Name Problem SNOMED Code Status Onset Date Resolution Date Notes Provider Name and Address Organization Details Recorded Time Eustachian tube disorder 25102592 Active 2023 SHERRY Crystal, [facility] 11:58:43 Dysfunction of bilateral eustachian tubes 3275711195926 100 Active 2023 DEEP Whitten [address] [facility], [facility] [address], [place], [address], [facility] 12:03:13 Sensorineur al hearing loss 50176179 Active 2023 SHERRY Crystal, [facility] 11:07:57 Problem Notes None recorded. Procedures Surgical History Date Name Laterality Status Provider Name and Address Organization Details Recorded Time tonsillectomy completed Nikia Lizarraga RN [facility] 07/12/2024 11:46:43 inflation of Eustachian tube using balloon completed Nikia Lizarraga RN [facility] 09/19/2024 08:25:36 myringotomy and insertion of tympanic ventilation tube completed Nikia Lizarraga RN [facility] 09/19/2024 08:25:48 Imaging Results None recorded. [...] Available No t Available BD Regular Bevel [place] 18 gauge x 1 1/2 USE WITH [...] Address Organization Details Last Updated DateTime 07/12/2024 04985.93 g 24 kg/m2 162.56 cm 97.8 [degF] Nikia Lizarraga RN [facility] 07/12/2024 11:48:07 Date Recorded Body height Body mass index (BMI) Body weight Body temperature Provider Name and Address Organization Details Last Updated DateTime 08/14/2024 162.56 cm 24.6 kg/m2 63021.43 g 97.9 [degF] Nikia Lizarraga RN [facility] 08/14/2024 11:18:46 Date Recorded Body height Body mass index (BMI) Body weight Body temperature Provider Name and Address Organization Details Last Updated DateTime 09/19/2024 162.56 cm 24.1 kg/m2 82867.09 g 97.7 [degF] Nikia Lizarraga RN [facility] 09/19/2024 11:02:40 Social History None recorded. Functional Status Question Answer Note LastModified by Organizat ion Details LastModified Time What is your level of alcohol consumption? Occasional [email or web address] Information not available 07/11/2024 Mental Status None recorded. Family History Nothing Reported Notes:SISTER: THROAT CANCER Medical History Condition Response MRSA N ALLERGIES/HAYFEVER N BACK INJECTIONS N LUNG DISEASE/DISORDER N ESRD N HISTORY OF DRUG ABUSE N INSOMNIA N RADIATION / CHEMOTHERAPY N COPD N HIGH CHOLESTEROL / HYPERLIPIDEMIA N HYPERTHYROIDISM N PVD N BLOOD DISEASES N EAR OR HEARING PROBLEMS N HYPOTHYROIDISM Y SHINGLES N DEPRESSION (INCLUDING POST ) N BACK / NECK PROBLEMS N HAVE YOU BEEN HOSPITALIZED OR SEEN IN [facility] IN THE PAST YEAR ? N FAILED [...] SPECIFY N TOURETTE'S N BLOOD TRANSFUSION N ANEMIA/BLOOD DISORDER N ANESTHESIA COMPLICATIONS N CHRONIC EAR INFECTIONS N ATRIAL FIBRILLATION N AUTOIMMUNE DISEASE N TUBERCULOSIS N Gynecological HistoryNo gynecological history recorded. Obstetrics History GPAL:G 0 P 0 0 0 0 Past Encounters Encounter ID Performer Location Encounter Start Date Encounter Closed Date Diagnosis/Indication Diagnosis SNOMED-CT Code Diagnosis ICD10 Code Diagnosis Note [id number] Sergo Brand MD [facility] [place] [address] [place] [address] 07/12/2024 11:27:27 07/12/2024 12:04:47 Dysfunction of bilateral eustachian tubes 8640766228 203666 H69.93 [id number] Sergo Brand MD [facility] [place] [address] [place] [address] 08/14/2024 11:00:58 08/15/2024 16:07:26 Dysfunction of bilateral eustachian tubes 7538342549 042653 H69.93 [id number] Sergo Brand MD [facility] [place] [address] [place] [address] 09/19/2024 10:57:56 09/19/2024 11:13:56 Sensorineural hearing loss 71200824 H90.5 Postoperative visit 1836 595[address] Z48.89 09/10/2024 postoperat maricel from a bilateral ETBD with tube placement. Health Concerns Section Related Observation LastModified by Organization Detai ls LastModified Time None Recorded Concern Status LastModified by Organization Details LastModified Time None Recorded Advance Directives Directive None Recorded Payers Insurance Date Sequence Insurance Name Policy Number Policy Mclain Covered Member ID Mclain Member ID Guarantor Name 09/26/2024 1 [employer] ([place]) [id number] 1 Gualberto Grossman [id number] Oumou Grossman Notes Date Note Type [...] infections over her lifetime. DEEP Whitten [address] [place], [place], [address], [employer] 07/12/2024 12:04:14 08/14/2024 text/html this patient has bilateral Eustachian tube dysfunction. This has been continuous since April and has been refractory to antibiotics and steroids x2 ear drops. When she was landing she had any pain. She has underlying hearing she does take Radhayrtec Sergo Brand MD [address], [place], [place], [address], [employer] 08/14/2024 11:33:14 09/19/2024 text/html This patient is [...] will obtain an audiogram. DEEP Whitten [address], [place], [place], [address], [employer] 09/19/2024 11:13:31 OBGyn Episode No OBEpisode recorded.
--- NOTE | 2025-05-15 11:00 | NEURO_ITS ---
Impression: # Non-diabetic complains of bilateral elbow discomfort. ? # Mild Carpal Tunnel Syndrome ? # Normal Needle/ EMG exam. Nerve Conduction Studies ?Stim Site NR Peak (ms) P-T Amp (?V) Site1 Site2 Delta-P (ms) Dist (cm) Thad (m/s) Left Median Anti Sensory (2-3nd Digit) Wrist ? 3.5 55.0 Wrist 2-3nd Digit 3.5 14.0 40 Wrist ? 3.4 41.0 Wrist 2-3nd Digit 3.5 14.0 40 Right Median Anti Sensory (2-3nd Digit) Wrist ? 3.5 32.7 Wrist 2-3nd Digit 3.5 14.0 40 Wrist ? 3.3 45.3 Wrist 2-3nd Digit 3.5 14.0 40 Left Radial Anti Sensory (Base 1st Digit) Wrist ? 1.8 37.8 Wrist Base 1st Digit 1.8 0.0 Right Radial Anti Sensory (Base 1st Digit) Wrist ? 2.1 21.3 Wrist Base 1st Digit 2.1 0.0 Left Ulnar Anti Sensory (5th Digit) Wrist ? 2.7 57.7 Wrist 5th Digit 2.7 14.0 52 Right Ulnar Anti Sensory (5th Digit) Wrist ? 2.5 38.6 Wrist 5th Digit 2.5 14.0 56 ?Stim Site NR Onset (ms) O-P Amp (mV) Site1 Site2 Delta-0 (ms) Dist (cm) Thad (m/s) Left Median Motor (Abd Poll Brev) Wrist ? 4.1 4.1 Elbow Wrist 4.6 28.0 61 Elbow ? 8.7 4.9 Right Median Motor (Abd Poll Brev) Wrist ? 4.2 1.8 Elbow Wrist 4.8 27.0 56 Elbow ? 9.0 6.3 Left Ulnar Motor (Abd Dig Minimi) Wrist ? 2.5 9.6 A Elbow Wrist 4.7 28.0 60 A Elbow ? 7.2 9.1 B Elbow Wrist 3.4 20.0 59 B Elbow ? 5.9 8.0 Right Ulnar Motor (Abd Dig Minimi) Wrist ? 2.6 5.5 A Elbow Wrist 4.6 27.0 59 A Elbow ? 7.2 4.5 B Elbow Wrist 2.9 17.0 59 B Elbow ? 5.5 3.7 Electromyography ?Side Muscle Nerve Root Ins Act Fibs Amp Dur Recrt Comment Right 1stDorInt Ulnar C8-T1 Nml Nml Nml Nml Nml Right Ext Indicis Radial (Post Int) C7-8 Nml Nml Nml Nml Nml Right Ext Digitorum Radial (Post Int) C7-8 Nml Nml Nml Nml Nml Right BrachioRad Radial C5-6 Nml Nml Nml Nml Nml Right PronatorTeres Median C6-7 Nml Nml Nml Nml Nml Right Abd Poll Brev Median C8-T1 Nml Nml Nml Nml Nml Right ABD Dig Min Ulnar C8-T1 Nml Nml Nml Nml Nml Right FlexPolLong Median (Ant Int) C7-8 Nml Nml Nml Nml Nml Right Abd Poll Long Radial (Post Int) C7-8 Nml Nml Nml Nml Nml Left 1stDorInt Ulnar C8-T1 Nml Nml Nml Nml Nml Left Ext Indicis Radial (Post Int) C7-8 Nml Nml Nml Nml Nml Left Ext Digitorum Radial (Post Int) C7-8 Nml Nml Nml Nml Nml Left BrachioRad Radial C5-6 Nml Nml Nml Nml Nml Left PronatorTeres Median C6-7 Nml Nml Nml Nml Nml Left Abd Poll Brev Median C8-T1 Nml Nml Nml Nml Nml Left ABD Dig Min Ulnar C8-T1 Nml Nml Nml Nml Nml Left FlexPolLong Median (Ant Int) C7-8 Nml Nml Nml Nml Nml Left Abd Poll Long Radial (Post Int) C7-8 Nml Nml Nml Nml Nml
== END 2025-05-15 08:22 | disposition home or self-care (01) ==
LOC: ANHNEURO 08:25
PROVIDERS: PCP Family Medicine; Visit Provider Nurse Practitioner Adult Health
DX: R20.0 Anesthesia of skin (principal); G56.03 Carpal tunnel syndrome, bilateral upper limbs
CPT/HCPCS: 95886; 95911

== ENCOUNTER 2025-06-24 01:16 | Day surgery (SDC) | payer BC, SELFPAY ==
[2025-06-13 13:21] VITALS: BMI 24.9
--- NOTE | 2025-06-13 13:22 | PC.NURSE ---
Report to the Outpatient Waiting Room, entrance under the green pavilion located off [facility], at time _0900_ on date _[id number]_. Planned Procedure Time: _1100_.? Time changes happen often and if your time is changed the preop area will call you the afternoon before. - You and your visitor will be asked to self-screen and do not enter if you have any COVID symptoms. Please call surgeon if you need to reschedule. - A mask is optional within the hospital at this time. Patients may have clear liquids (water, carbonated beverages, clear teas, apple juice) until 3 hours prior to surgery with a maximum of 20 ounces. - No food from midnight until time of surgery and no smoking, or chewing tobacco (or any form of nicotine). No chewing gum, candy or mints. Take only the following medications with a SIP of water on the morning of surgery: ___None____ DO NOT STOP ANY OF YOUR OTHER PRESCRIPTION MEDICATIONS PRIOR TO SURGERY EXCEPT THE FOLLOWING Hold all vitamins and supplements for 3 days per anesthesiologist. Medications to discontinue per physician ___Meloxicam____ Date to take last fkax___[phone]____ Ok to take Acetaminophen. Please no make-up, nail arabic, hairspray, perfume, deodorant, or body powder the day of surgery.? No jewelry (including any body piercings) or valuables the day of surgery, leave them at home.? Please take a shower or bath the night before, or the morning of, surgery with an antibacterial soap.? Wear comfortable, loose fitting clothing.? - Jewelry must be removed prior to entering the operating room.? Rings and piercings that are not removed may be cut off. - The hospital will not accept responsibility for valuables.? - Please leave all valuables, including medications, at home the day of surgery. If you are going home after surgery, a licensed emergency vehicle driver must drive you home.? - NO public transportation without another adult if you receive anesthesia. - We recommend that an adult stay with you for 24 hours following discharge. - We also recommend that you do not drive, make important decision, drink alcoholic beverages, or take any drugs that were not prescribed by your health care provider for at least 24 hours after your discharge time. Follow any additional instructions given to you from your surgeon. Telephone instructions given to __Vicki__and asked if any additional questions and then verbalized understanding. Patient advised to call surgeon office or pre surgery nurse liaison [phone] if any additional questions.
[2025-06-24] VITALS (8 sets, daily range): BP systolic 128–148; BP diastolic 72–89; PULSE 65–73; RESP 10–20; TEMP 36.1–36.6; O2SAT 95–100
--- OUTSIDE RECORDS SUMMARY | 2025-06-24 01:19 | XMS_ITS | Patient Health Record ---
Author Organization 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 Role Phone Ronal Cota Primary Care Provider [phone] Migration, Provider Unavailable Unavailable Jessica May Unavailable [phone] Allergies No Known Allergies Results Component Value Reference Range Flag Notes COMPREHENSIVE METABOLIC PANE L Reviewed date:07/29/2024 08:17:37 PM Interpretation: Performing Lab:, [facility], [facility], [facility] [address], [place], [address] [facility] Notes/Report: Not Reported: BUN and Creatinine are within FASTING:YES Fasting reference interval reference range. FASTING: YES GLUCOSE 82 65-99 mg/dL N UREA NITROGEN (BUN) 19 7-25 mg/dL N CREATININE 0.53 0.50-1.03 mg/dL N EGFR 109 > OR = 60 mL/min/1.73m2 N BUN/CREATININE RATIO SEE NOTE: 6-22 (calc) SODIUM 139 135-146 mmol/L N POTASSIUM 4.0 3.5-5.3 mmol/L N CHLORIDE 105 98-110 mmol/L N CARBON DIOXIDE 27 20-32 mmol/L N CALCIUM 9.0 8.6-10.4 mg/dL N PROTEIN, TOTAL 6.5 6.1-8.1 g/dL N ALBUMIN 4.2 3.6-5.1 g/dL N GLOBULIN 2.3 1.9-3.7 g/dL (calc) N ALBUMIN/GLOBULIN RATIO 1.8 1.0-2.5 (calc) N BILIRUBIN, TOTAL 0.5 0.2-1.2 mg/dL N ALKALINE PHOSPHATASE 69 37-153 U/L N AST 19 10-35 U/L N ALT 15 6-29 U/L N VITAMIN D, 25-HYDROXY, LC/MS /MS Reviewed date:07/29/2024 08:23:08 PM Interpretation: Performing Lab:Samreen FANG, [address] [place], [address] Paola Gomes MD Notes/Report: Vitamin D Status 25-OH Vitamin D: FASTING:YES Deficiency: <20 ng/mL FASTING: YES Insufficiency: 20 - 29 ng/mL Optimal: > or = 30 ng/mL For 25-OH Vitamin D testing on patients on D2-supplementation and patients for whom quantitation of D2 and D3 fractions is required, the QuestAssureD(TM) 25-OH VIT D, (D2,D3), LC/MS/MS is recommended: order code 05048 (patients >2yrs). See Note 1 Note 1 For additional information, please refer to http://education.Porphyrio/faq/GRK220 (This link is being provided for informational/ educational purposes only.) VITAMIN D,25-OH,TOTAL,IA 43 30-100 ng/mL N ACTH, PLASMA Reviewed date:07/31/2024 09:13:17 PM Interpretation: Performing Lab:Samreen NGUYEN/Gillian [facility], [address], [place], [address] Abdulkadir Mckenzie M.D.,PhD Notes/Report: FASTING:YES Reference range applies only to specimens collected between 7am-10am. FASTING: YES ACTH, PLASMA 9 6-50 pg/mL RHONDA IFA SCREEN W/REFL TO TIT ER AND PATTERN, IFA Reviewed date:07/29/2024 08:25:35 PM Interpretation: Performing Lab:Samreen FANG, [address] [place], [address] Paola Gomes MD Notes/Report: RHONDA IFA is a first line screen for detecting the FASTING:YES presence of up to approximately 150 autoantibodies in various autoimmune diseases. A negative RHONDA IFA result FASTING: YES suggests an RHONDA-associated autoimmune disease is not present at this time, but is not definitive. If there is high clinical suspicion for Sjogren's syndrome, testing for anti-SS-A/Ro antibody should be considered. Anti-Britt-1 antibody should be considered for clinically suspected inflammatory myopathies. AC-0: Negative International Consensus on RHONDA Patterns (https://doi.org/10.1515/bmzb-9801-4429) For additional information, please refer to http://education.Porphyrio/faq/OZG866 (This link is being provided for informational/ educational purposes only.) RHONDA SCREEN, IFA NEGATIVE NEGATIVE N TSI (THYROID STIMULATING IMM UNOGLOBULIN) Reviewed date:08/02/2024 08:58:30 PM Interpretation: Performing Lab:RADU WeissBeerger Adonay/Gillian [facility],, [address], [place], [address] Ava Nunez MD,PhD,NADER Notes/Report: FASTING:YES Thyroid stimulating immunoglobulins (TSI) can engage the TSH receptors resulting in hyperthyroidism in Graves' disease FASTING: YES patients. TSI levels can be useful in monitoring the clinical outcome of Graves' disease as well as assessing the potential for hyperthyroidism from maternal- transfer. TSI results greater than or equal to (>=) 140% of the Reference Control are considered positive. NOTE: A serum TSH level greater than 350 micro-International Units/mL can interfere with the TSI bioassay and potentially give false positive results. Patients who are and are suspected of having hyperthyroidism should have both TSI and human Chorionic Gonadotropin (hCG) tests measured. A serum hCG level greater than 40,625 mIU/mL can interfere with the TSI bioassay and may give false negative results. In these patients it is recommended that a second TSI be obtained when the hCG concentration falls below 40,625 mIU/mL (usually after approximately 20-weeks gestation). The analytical performance characteristics of this assay have been determined by [employer] [facility]. The modifications have not been cleared or approved by the FDA. This assay has been validated pursuant to the CLIA regulations and is used for clinical purposes. TSI <89 <140 % baseline HOMOCYSTEINE, CARDIOVASCULAR Reviewed date:07/29/2024 08:17:23 PM Interpretation: Performing Lab:Samreen FANG[facility], [address] [place], [address] Paola Gomes MD Notes/Report: Homocysteine is increased by functional deficiency of FASTING:YES folate or vitamin B12. Testing for methylmalonic acid differentiates between these deficiencies. Other causes FASTING: YES of increased homocysteine include renal failure, folate antagonists such as methotrexate and phenytoin, and exposure to nitrous oxide. Annie Power et al., Marisa Newscast Director Med. 1999;131(5):331-9. HOMOCYSTEINE 6.7 <10.4 umol/L N T3, FREE Reviewed date:07/29/2024 08:23:01 PM Interpretation: Performing Lab:Samreen FANG, [place], [address] Paola Gomes MD Notes/Report: FASTING:YES FASTING: YES T3, FREE 3.1 2.3-4.2 pg/mL N CORTISOL, TOTAL Reviewed date:07/29/2024 08:25:24 PM Interpretation: Performing Lab:Samreen FANG [address], [place], [address] Paola Gomes MD Notes/Report: Reference Range: For 8 a.m.(7-9 a.m.) Specimen: 4.0-22.0 FASTING:YES Reference Range: For 4 p.m.(3-5 p.m.) Specimen: 3.0-17.0 * Please interpret above results accordingly * FASTING: YES CORTISOL, TOTAL 7.8 N DHEA SULFATE Reviewed date:07/29/2024 08:23:27 PM Interpretation: Performing Lab:Samreen FANG, [place], [address] Paola Gomes MD Notes/Report: FASTING:YES FASTING: YES DHEA SULFATE 34 5-167 mcg/dL N C-REACTIVE PROTEIN Reviewed date:07/29/2024 08:23:44 PM Interpretation: Performing Lab:Samreen FANG [address], [place], [address] Paola Gomes MD Notes/Report: FASTING:YES FASTING: YES C-REACTIVE PROTEIN 4.6 <8.0 mg/L N CBC (INCLUDES DIFF/PLT) Reviewed date:07/29/2024 08:25:57 PM Interpretation: Performing Lab:PRIMITIVO [facility], [address] , [place], [address] Paola Goems Notes/Report: FASTING:YES FASTING: YES WHITE BLOOD CELL COUNT 6.4 3.8-10.8 Thousand/uL N RED BLOOD CELL COUNT 3.96 3.80-5.10 Million/uL N HEMOGLOBIN 12.8 11.7-15.5 g/dL N HEMATOCRIT 39.1 35.0-45.0 % N MCV 98.7 80.0-100.0 fL N MCH 32.3 27.0-33.0 pg N MCHC 32.7 32.0-36.0 g/dL N RDW 12.0 11.0-15.0 % N PLATELET COUNT 271 140-400 Thousand/uL N MPV 9.9 7.5-12.5 fL N ABSOLUTE NEUTROPHILS 4358 8188-7016 cells/uL N ABSOLUTE LYMPHOCYTES 9035 528-2956 cells/uL N ABSOLUTE MONOCYTES 461 200-950 cells/uL N ABSOLUTE EOSINOPHILS 51 15-500 cells/uL N ABSOLUTE BASOPHILS 58 0-200 cells/uL N NEUTROPHILS 68.1 N LYMPHOCYTES 23.0 N MONOCYTES 7.2 N EOSINOPHILS 0.8 N BASOPHILS 0.9 N VITAMIN B12/FOLATE, SERUM PA CLOTILDE Reviewed date:07/29/2024 08:24:58 PM Interpretation: Performing Lab:LEONCIO [facility], [address] [place], [address] Paola Gomes MD Notes/Report: Reference Range FASTING:YES Low: <3.4 Borderline: 3.4-5.4 FASTING: YES Normal: >5.4 VITAMIN B12 436 597-6858 pg/mL N FOLATE, SERUM 23.6 N IRON AND TOTAL IRON BINDING CAPACITY Reviewed date:07/29/2024 08:25:09 PM Interpretation: Performing Lab:LEONCIO [facility], [address] [place], [address] Paola Gomes MD Notes/Report: FASTING:YES FASTING: YES IRON, TOTAL 118 45-160 mcg/dL N IRON BINDING CAPACITY 361 250-450 mcg/dL (calc) N % SATURATION 33 16-45 % (calc) N SED RATE BY MODIFIED WESTERG VALERIE Reviewed date:07/29/2024 08:25:42 PM Interpretation: Performing Lab:, [facility], [facility], [facility] [place], [address] [facility] Notes/Report: FASTING:YES FASTING: YES SED RATE BY MODIFIED WESTERGREN 5 < OR = 30 mm/h N T4, FREE Reviewed date:07/29/2024 08:24:24 PM Interpretation: Performing Lab:, [facility], [facility], [facility] [place], [address] [facility] Notes/Report: FASTING:YES FASTING: YES T4, FREE 1.1 0.8-1.8 ng/dL N TSH Reviewed date:07/29/2024 08:23:17 PM Interpretation: Performing Lab:PRIMITIVO, [facility], [facility] [place], [address] [facility] Notes/Report: Reference Range FASTING:YES > or = 20 Years 0.40-4.50 FASTING: YES Ranges First trimester 0.26-2.66 Second trimester 0.55-2.73 Third trimester 0.43-2.91 TSH 1.19 N THYROID PEROXIDASE ANTIBODIE S Reviewed date:07/30/2024 09:27:32 PM Interpretation: Performing Lab:CB, [facility], [address] [place] [address], [address] aSm Burciaga Notes/Report: FASTING:YES FASTING: YES THYROID PEROXIDASE ANTIBODIES 3 <9 IU/mL TESTOSTERONE, FREE (DIALYSIS ) AND TOTAL,MS Reviewed date:08/02/2024 08:58:40 PM Interpretation: Performing Lab:Z3E, [facility], [address] [place] [address], [address], [place], [address] Tonya Maza MD,PhD Notes/Report: (Note) FASTING:YES For additional information, please refer to This test was developed and its analytical performance https://education.ULURU.Pebbles Interfaces/faq/WGV083 characteristics have been determined by [facility]. It has FASTING: YES (This link is being provided for informational/educational purposes only.) not been cleared or approved by the FDA. This assay has (Note) been validated pursuant to the CLIA regulations and is used for clinical purposes. This test was developed and its analytical performance characteristics have been determined by [facility]. It has MDF not been cleared or approved by the FDA. This assay has [facility] been validated pursuant to the CLIA regulations and is [facility] [address],[address] used for clinical purposes. [place] [address] Tonya Maza MD, PhD TESTOSTERONE, TOTAL, MS 13 2-45 ng/dL TESTOSTERONE, FREE 0.6 0.1-6.4 pg/mL MAGNESIUM, RBC Reviewed date:08/01/2024 07:53:01 PM Interpretation: Performing Lab:Wilberto, [facility], [address] [place] [address], [address], [place], [address] Tonya Maza MD,PhD Notes/Report: (Note) FASTING:YES This test was developed and its analytical performance characteristics have been determined by [employer]. FASTING: YES It has not been cleared or approved by the FDA. This assay has been validated pursuant to the CLIA regulations and is used for clinical purposes. MDF [facility] [address] [place] [address],[address] [place] [address] Tonya Maza MD, PhD MAGNESIUM, RBC 6.1 4.0-6.4 mg/dL CYCLIC CITRULLINATED PEPTIDE (CCP) AB (IGG) Reviewed date:11/12/2024 01:35:27 PM Interpretation: Performing Lab:Samreen FANG[facility], [address] [place], [address] Paola Gomes MD Notes/Report: Reference Range Negative: <20 Weak Positive: 20-39 Moderate Positive: 40-59 Strong Positive: >59 CYCLIC CITRULLINATED PEPTIDE (CCP) AB (IGG) 21 H RHEUMATOID FACTOR Reviewed date:10/31/2024 09:53:58 AM Interpretation: Performing Lab:Samreen FANG[facility], [address] [place], [address] Paola Gomes MD Notes/Report: RHEUMATOID FACTOR <10 <14 IU/mL N TESTOSTERONE, FREE (DIALYSIS ) AND TOTAL,MS Reviewed date:10/13/2024 10:53:49 AM Interpretation: Performing Lab:Z3E, [facility], [address] [address], [address], [place], [address] Tonya Maza MD,PhD Notes/Report: (Note) For additional information, please refer to This test was developed and its analytical performance https://Barnacle.Liibook/faq/MKE597 characteristics have been determined by [facility]. It has (This link is being provided for informational/educational purposes only.) not been cleared or approved by the FDA. This assay has (Note) been validated pursuant to the CLIA regulations and is used for clinical purposes. This test was developed and its analytical performance characteristics have been determined by [facility]. It has MDF not been cleared or approved by the FDA. This assay has [facility] been validated pursuant to the CLIA regulations and is [address] [address],[address] used for clinical purposes. [facility] [address] Tonya Maza MD, PhD TESTOSTERONE, TOTAL, MS 17 2-45 ng/dL TESTOSTERONE, FREE 0.9 0.1-6.4 pg/mL TSH Reviewed date:10/09/2024 09:20:38 AM Interpretation: Performing Lab:PRIMITIVO [facility], [address] [place], [address] [facility] Eliseo Notes/Report: Reference Range > or = 20 Years 0.40-4.50 Ranges First trimester 0.26-2.66 Second trimester 0.55-2.73 Third trimester 0.43-2.91 TSH 1.88 N T4, FREE Reviewed date:10/09/2024 09:20:38 AM Interpretation: Performing Lab:PRIMITIVO [facility], [address] [place], [address] [facility] Notes/Report: T4, FREE 1.1 0.8-1.8 ng/dL N LIPID PANEL Reviewed date:10/09/2024 09:20:38 AM Interpretation: Performing Lab:PRIMITIVO Hey[facility]ita, [address] [place], [address] [facility] Notes/Report: Reference range: <100 For patients with diabetes plus 1 major ASCVD risk factor, treating to a non-HDL-C goal of <100 mg/dL Desirable range <100 mg/dL for primary prevention; (LDL-C of <70 mg/dL) is considered a therapeutic <70 mg/dL for patients with CHD or diabetic patients option. with > or = 2 CHD risk factors. LDL-C is now calculated using the Becky calculation, which is a validated novel method providing better accuracy than the Friedewald equation in the estimation of LDL-C. Teodoro KAUFMAN et al. MARIA ALEJANDRA. 2013;310(19): 0142-7016 (http://Barnacle.Porphyrio/faq/PQV493) CHOLESTEROL, TOTAL 175 <200 mg/dL N HDL CHOLESTEROL 63 > OR = 50 mg/dL N TRIGLYCERIDES 107 <150 mg/dL N LDL-CHOLESTEROL 92 N CHOL/HDLC RATIO 2.8 <5.0 (calc) N NON HDL CHOLESTEROL 112 <130 mg/dL (calc) N PROGESTERONE Reviewed date:10/10/2024 09:19:14 PM Interpretation: Performing Lab:PRIMITIVO, [facility], [address] [place], [address] [facility] Notes/Report: Reference Ranges Female Follicular Phase < 1.0 Luteal Phase 2.6-21.5 Post menopausal < 0.5 1st Trimester 4.1-34.0 2nd Trimester 24.0-76.0 3rd Trimester 52.0-302.0 PROGESTERONE <0.5 N CBC (INCLUDES DIFF/PLT) Reviewed date:10/09/2024 09:20:38 AM Interpretation: Performing Lab:PRIMITIVO Hey[facility], [address] [place], [address] [facility] Notes/Report: For adults, a slight decrease in the calculated MCHC value (in the range of 30 to 32 g/dL) is most likely not clinically significant; however, it should be interpreted with caution in correlation with other red cell parameters and the patient's clinical condition. WHITE BLOOD CELL COUNT 7.3 3.8-10.8 Thousand/uL N RED BLOOD CELL COUNT 4.15 3.80-5.10 Million/uL N HEMOGLOBIN 13.3 11.7-15.5 g/dL N HEMATOCRIT 39.5 35.0-45.0 % N MCV 95.2 80.0-100.0 fL N MCH 32.0 27.0-33.0 pg N MCHC 33.7 32.0-36.0 g/dL N RDW 12.7 11.0-15.0 % N PLATELET COUNT 279 140-400 Thousand/uL N MPV 10.1 7.5-12.5 fL N ABSOLUTE NEUTROPHILS 4789 8662-4219 cells/uL N ABSOLUTE LYMPHOCYTES 3544 832-4483 cells/uL N ABSOLUTE MONOCYTES 650 200-950 cells/uL N ABSOLUTE EOSINOPHILS 73 15-500 cells/uL N ABSOLUTE BASOPHILS 51 0-200 cells/uL N NEUTROPHILS 65.6 N LYMPHOCYTES 23.8 N MONOCYTES 8.9 N EOSINOPHILS 1.0 N BASOPHILS 0.7 N ESTRADIOL Reviewed date:10/10/2024 08:30:43 AM Interpretation: Performing Lab:PRIMITIVO [facility], [address], [place], [address] Paola Gomes Notes/Report: Reference Range Follicular Phase: 19-144 Mid-Cycle: 64-357 Luteal Phase: 56-214 Postmenopausal: < or = 31 Reference range established on post-pubertal patient population. No pre-pubertal reference range established using this assay. For any patients for whom low Estradiol levels are anticipated (e.g. males, pre-pubertal children and hypogonadal/post-menopausal females), the [employer] [facility] Estradiol, Ultrasensitive, LCMSMS assay is recommended (order code 83775). Please note: patients being treated with the drug fulvestrant (Faslodex(R)) have demonstrated significant interference in immunoassay methods for estradiol measurement. The cross reactivity could lead to falsely elevated estradiol test results leading to an inappropriate clinical assessment of estrogen status. [employer] order code [id number], Ultrasensitive LC/MS/MS demonstrates negligible cross reactivity with fulvestrant. ESTRADIOL 125 N T3, FREE Reviewed date:10/09/2024 09:20:38 AM Interpretation: Performing Lab:LEONCIO, Samreen Monterroso, [address] [place], [address] Paola Gomes MD Notes/Report: T3, FREE 3.5 2.3-4.2 pg/mL N VITAMIN D, 25-HYDROXY, LC/MS /MS Reviewed date:10/09/2024 09:20:38 AM Interpretation: Performing Lab:LEONCIO, [facility], [address] [place], [address] Paola Gomes MD Notes/Report: Vitamin D Status 25-OH Vitamin D: Deficiency: <20 ng/mL Insufficiency: 20 - 29 ng/mL Optimal: > or = 30 ng/mL For 25-OH Vitamin D testing on patients on D2-supplementation and patients for whom quantitation of D2 and D3 fractions is required, the Quest[facility]ureD(TM) 25-OH VIT D, (D2,D3), LC/MS/MS is recommended: order code 30115 (patients >2yrs). See Note 1 Note 1 For additional information, please refer to http://education.Porphyrio/faq/TEA848 (This link is being provided for informational/ educational purposes only.) VITAMIN D,25-OH,TOTAL,IA 57 30-100 ng/mL N COMPREHENSIVE METABOLIC PANE L Reviewed date:10/09/2024 09:20:38 AM Interpretation: Performing Lab:PRIMITIVO, [facility], [address], [place], [address] Paola Gomes Notes/Report: Not Reported: BUN and Creatinine are within Fasting reference interval reference range. GLUCOSE 90 65-99 mg/dL N UREA NITROGEN (BUN) 17 7-25 mg/dL N CREATININE 0.61 0.50-1.03 mg/dL N EGFR 106 > OR = 60 mL/min/1.73m2 N BUN/CREATININE RATIO SEE NOTE: 6-22 (calc) SODIUM 140 135-146 mmol/L N POTASSIUM 4.0 3.5-5.3 mmol/L N CHLORIDE 103 98-110 mmol/L N CARBON DIOXIDE 29 20-32 mmol/L N CALCIUM 9.0 8.6-10.4 mg/dL N PROTEIN, TOTAL 6.5 6.1-8.1 g/dL N ALBUMIN 4.2 3.6-5.1 g/dL N GLOBULIN 2.3 1.9-3.7 g/dL (calc) N ALBUMIN/GLOBULIN RATIO 1.8 1.0-2.5 (calc) N BILIRUBIN, TOTAL 0.4 0.2-1.2 mg/dL N ALKALINE PHOSPHATASE 88 37-153 U/L N AST 21 10-35 U/L N ALT 20 6-29 U/L N Reason For Referral Reason can we 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 May Referring Provider First Name Ronal Referring Provider Last Name Cipriano Referred Provider Specialty Pulmonary Di [facility] General Notes Referring From :Danilo Chau; Referral Priority Routine Reason patient had a border line positive CCP antibody can we please make sure she has a copy of this and a copy gets to Dr. Swanson with referral; she has a lot of arthritis and pain, has lung nodules and concerns for rheumatoid arthritis thank you so much Referral Organization [facility] Dr. May Referring Provider First Name Ronal Referring Provider Last Name Cipriano Referred Provider Specialty Rheumatology General Notes Referring From :Danilo Chau; Referral Priority Routine Medications Medication SIG (Take, Route, Frequency, Duration) Notes Start Date End Date Status Testosterone Enanthate 200 MG/ML Solution inject 20 mg subcutaneously weekly; Duration: 90 days 11/20/2024 Active Vyvanse 70 MG Capsule 1 cap(s) orally on ce a day (in the morning) Active Estradiol 2 MG Tablet 1 tab(s) orally once a day Active Meloxicam 15 MG Tablet 1 tab(s) orally once a day Active Social History Social History Additional Details Category Social Info Options Details Migrated Social History Migrated Social History (Alcohol:):yes occasionally (Recreational drug use:):no (Smoking:):no Section Notes: Caffeine: one coffee and one soda/tea a day. Problems Problem Type SNOMED Code ICD Code Onset Dates Problem Status W/U Status Risk Notes Problem Autoimmune thyroiditis (21359500) Autoimmune thyroiditis (E06.3) Active confirmed Problem Vitamin D deficiency (63485711) Vitamin D deficiency, unspecified (E55.9) Active confirmed Problem Polyarthritis (199854609) Polyarthritis, unspecified (M13.0) Active confirmed Problem Menopause (076233486) Menopausal and female climacteric states (N95.1) Active confirmed Vital Signs Heart Rate 77 /min 10/30/2024 SPO2: 99% Respiratory Rate 12 /min 08/15/2024 Blood pressure diastolic 88 mm Hg 10/30/2024 SPO 2: 99% Height 64 in 10/30/2024 SPO2: 99% Blood pressure systolic 141 mm Hg 10/30/2024 SPO2 : 99% Weight 142 lbs 10/30/2024 SPO2: 99% BMI 24.37 kg/m2 10/30/2024 SPO2: 99% Encounters Encounter Location Date Provider Diagnosis [address] [id number] 09/15/2024 Provider Migration Menopausal and female climacteric states N95.[address] May [address] [place] [phone] 07/25/2024 Jessica May Nonscarring hair loss, unspecified L65.9 ; Other fatigue R53.83 ; Polyarthritis, unspecified M13.0 ; Dysuria R30.0 ; Abnormal results of thyroid function studies R94.6 ; Vitamin D deficiency, unspecified E55.9 and Encounter for screening for other disorder Z13.[address] May [address] [place] [phone] 08/15/2024 Jessica May Autoimmune thyroiditis E06.3 ; Vitamin D deficiency, unspecified E55.9 ; Other fatigue R53.83 ; Menopausal and female climacteric states N95.1 and Weakness R53.[address] May [address] [place] [address] 10/30/2024 Jessica May Vitamin D deficiency, unspecified E55.9 ; Menopausal and female climacteric states N95.1 ; Autoimmune thyroiditis E06.3 and Chronic cough R05.[address] May [address] [place] [address] 09/25/[address] May [address] [place] [address] 10/30/2024 Ronal Cota Chronic cough R05.[address] May [address] [place] [address] 11/02/[address] May [address] [place] [address] 11/02/2024 MarcioRhonda Cota [address] [address] 11/27/2024 Ronal Cota Assessments Encounter Date Diagnosis (ICD Code) Assessment Notes Treatment Notes Treatment Clinical Notes Section Notes 07/25/2024 Nonscarring hair loss, unspecified (ICD-10 - L65.9) Send for testosterone, iron and hormone panel. She doesn't eat enough protein in her diet; encouraged increase protein up to 90 grams per day as she might get 40-50 grams at most. 07/25/2024 Other fatigue (ICD-10 - R53.83) Will send for thyroid antibodies to screen for autoimmune thyroid disease in adition to CBC, CMP, ferritin, vit D and B12/folate to screen for other potential secondary causes of fatigue. 08/15/2024 Autoimmune thyroiditis (ICD-10 - E06.3) 08/15/2024 Vitamin D deficiency, unspecified (ICD-10 - E55.9) 10/30/2024 Vitamin D deficiency, unspecified (ICD-10 - E55.9) 10/30/2024 Menopausal and female climacteric states (ICD-10 - N95.1) 10/30/2024 Chronic cough (ICD-10 - R05.3) 08/15/2024 Other fatigue (ICD-10 - R53.83) 10/30/2024 Autoimmune thyroiditis (ICD-10 - E06.3) 07/25/2024 Polyarthritis, unspecified (ICD-10 - M13.0) Send for autoimmune panel to screen for lupus/rheumatoid arthritis. 07/25/2024 Dysuria (ICD-10 - R30.0) UA was clear / did not indicate UTI. Recommended AZO / cranberry urine treatment as she likely needs to mucosal analgesia. 08/15/2024 Menopausal and female climacteric states (ICD-10 - N95.1) 09/15/2024 Menopausal and female climacteric states (ICD-10 - N95.1) 10/30/2024 Chronic cough (ICD-10 - R05.3) 08/15/2024 Weakness (ICD-10 - R53.1) 07/25/2024 Abnormal results of thyroid function studies (ICD-10 - R94.6) Send for full thyroid panel to screen for graves disease as she does have family hx of hyperthyroidism. She has had increased fatigue, anxiety and weight loss (10 pound unintentional loss of wt). 07/25/2024 Vitamin D deficiency, unspecified (ICD-10 - E55.9) Send for vitamin D to screen for def- goal of 50 ng/ML to optimize bone and immune health. 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 Given number for Dr. Mo Victoria/ sleep specialist at [facility]-she is aware to reach out if referral necessary to see clinic. 07/25/2024 Other Spent 45 minute s preparing to see the patient (ex review of tests/chart), obtaining and / or reviewing separately obtained history, performing a medically appropriate examination and/or evaluation, counseling and educating the patient/family/careg iver, ordering medications, tests, or procedures, referring and communicating with other health direct care provider, documenting clinical information in the electronic or other health record, independently interpreting results and communicating results to the patient/family/careg iver and care coordinating patient plan. Patient alert and oriented x 4 and aware of discussion noted above and in agreeance to plan in management of fatigue, arthritis, dysuria, hair loss/thinning and sleep disorder. 08/15/2024 Other Assessment and Plan: 1. Insomnia and nightmares - Continue using gummies for sleep as needed 2. Fatigue and weight loss - Thyroid levels within normal range - Trial of Purely Holistic Thyroid Support with iodine, selenium, magnesium, manganese, L-carnitine, and ashwagandha root - Follow up in 1 month to assess improvement 3. Photosensitivity and skin rash - Recommend using sun protection creams and covering skin when exposed to sunlight 4. Low back pain and pinched nerve - Encourage walking as tolerated - Monitor pain and consider further evaluation if symptoms worsen 5. Low testosterone - Start testosterone therapy with Enanthate 20 mg every 7 to 10 days - Monitor for side effects such as headaches, high blood pressure, blurred vision, or irritability - Blood work to be done the day before the sixth shot to check levels 6. Hair loss - Increase protein intake with protein drinks and recommended supplements - Monitor for improvement 7. Preventive care - Up to date on mammograms, colonoscopies, and pap smears 8. Vitamin D supplementation - Continue taking [id number] IU daily 9. Immune system support - Consider adding elderberry supplement Follow-up:- Schedule a follow-up appointment in 2 months- Complete Acetalabs blood work in 6 weeks, the day before the scheduled testosterone shot Spent 25 minutes preparing to see the patient (ex review of tests/chart), obtaining and / or reviewing separately obtained history, performing a medically appropriate examination and/or evaluation, counseling and educating the patient/family/careg iver, ordering medications, tests, or procedures, referring and communicating with other health direct care provider, documenting clinical information in the electronic or other health record, independently interpreting results and communicating results to the patient/family/careg iver and care coordinating patient plan. Patient alert and oriented x 4 and aware of discussion noted above and in agreeance to plan in management of autoimmune thyroiditis, low stamina/low testosterone, vit D def and fatigue. Due to the nature of telemedicine, the ability to do physical assessment was limited to what can be accomplished by patient directed telehealth visit based on instruction. Those limits are understood by the patient and myself. Impression is based on history, available information, and physical findings accomplished with telehealth visit. Chronic disease/problem list/ medication list reviewed and updated where indicated. Discussed diagnosis, plan including risks, benefits, and options of treatment. Advised to call for new, worsening, or persistent symptoms. Level of patient risk was of moderate complexity due to the documented nature of presentation, the information assessment required and the nature of the development of an evaluation and treatment plan as documented. PMH, FHx, SHx, Surgical Hx, Quality management review carried out and addressed as documented today as part of this visit. Medication list was reviewed and adjusted as indicated. Medication requiring a refill was addressed. Risk and benefits of any new medications were discussed and all questions were answered. 10/30/2024 Other Assessment and Plan: 1. Joint pain and suspected rheumatoid arthritis- Order CCP antibody test and rheumatoid panel- Refer to sales assistant institutional sales (Dr. Swanson at [facility])- Continue meloxicam for pain management 2. Testosterone therapy- Increase testosterone enanthate dosage to 0.3 mL every 10 days- Monitor for improvements in recovery, strength, motivation, and libido 3. Thyroid support- Encourage patient to continue thyroid support supplements- Monitor thyroid levels 4. Chronic cough and abnormal lung sounds- Order CT chest with and without contrast to evaluate for interstitial pneumonitis or inflammatory issues- Obtain insurance approval for CT scan- If cough worsens, advise patient to visit the ER 5. Leg pain and history of spine surgeries- Continue gabapentin for leg pain management- Follow up with neurologist in October 6. Estrogen therapy- Continue 2 mg estradiol as prescribed by Dr. Vital- Monitor for any side effects or changes in symptoms 7. Preventive care- Encourage patient to schedule mammogram when available in [place] 8. Pharmacy and insurance- Send testosterone prescription to the patient's regular pharmacy- Assist patient in finding a CT scan facility with availability (e.g., [facility]) Spent 25 minutes preparing to see the patient (ex review of tests/chart), obtaining and / or reviewing separately obtained history, performing a medically appropriate examination and/or evaluation, counseling and educating the patient/family/careg iver, ordering medications, tests, or procedures, referring and communicating with other health direct care provider, documenting clinical information in the electronic or other health record, independently interpreting results and communicating results to the patient/family/careg iver and care coordinating patient plan. Patient alert and oriented x 4 and aware of discussion noted above and in agreeance to plan in management of chronic cough/concern for RA, hormone therapy, autoimmune thyroiditis. Plan Of Treatment Pending Test Test Name Order Date CT Chest W & W/O contrast 10/30/2024 CT Chest with contrast 10/30/2024 Insurance Providers Payer Name Payer Address Payer Phone Subscriber Number Group Number Insured Name Patient Relationship to Insured Coverage Start Date Coverage End Date Brijesh [facility] [address] [place] [address] [id number] Oumou Arias i Self - patient is the insured Medical (General) History Medical History History ICD Code fatigue hair loss skin lesions eye sensitivity Surgical History Surgery Date(Month/Year) neck fusion; c4-c7 10/2023 lower back fusion L4/5 05/2022 hysterectomy; 1995 twenty-two foot surgeries; p lantar fascitis, tarsal tunnel, bone spurs, large metatarsal implant, thumb rebuilt 2004 1989 1985 Hospitalization History Reason Date(Month/Year) neck fusion c4-c7 10/2023
--- OUTSIDE RECORDS SUMMARY | 2025-06-24 01:19 | XMS_ITS | Clinical Summary ---
Author Organization [facility] [address] Address [address] [place] [id number] Care Team Providers Care Plumbing Drafter Name Role Phone Mann Tarn MD Primary Care Provider + [phone] Allergies Active Allergy Reactions Criticality Noted Date [...] on file Legal Sex Female 4:53 AM BATTERY TESTER AND REPAIRER Gender Identity Not on file Sexual Orientation Not on file Obstetrics History Last Filed Vital Signs Vital Sign Reading Time Taken Comments Blood Pressure 146/89 12/17/2024 10:48 AM BATTERY TESTER AND REPAIRER Pulse 91 12/17/2024 10:48 AM BATTERY TESTER AND REPAIRER Temperature 37.2 C (98.9 F) 10/18/2024 3:39 PM BATTERY TESTER AND REPAIRER Respiratory Rate 18 12/17/2024 10:48 AM BATTERY TESTER AND REPAIRER Oxygen Saturation 99% 10/18/2024 3:39 PM BATTERY TESTER AND REPAIRER Inhaled Oxygen Concentration - - Weight 67.1 kg (148 lb) 12/17/2024 10:48 AM BATTERY TESTER AND REPAIRER Height 162.6 cm (5' 4) 12/17/2024 10:48 AM BATTERY TESTER AND REPAIRER Body Mass Index 25.4 12/17/2024 10:48 AM BATTERY TESTER AND REPAIRER Plan of Treatment Health Maintenance Due Date [...] complete this topic Insurance [employer] ACCESS CHOICE [email or web address] ACCESS CHOICE Care Teams Plumbing Drafter Relationship Specialty Start Date End Date Mann Tran MD [address] [place] [address] PCP - General Family Medicine 05/20/24
--- OUTSIDE RECORDS SUMMARY | 2025-06-24 01:19 | XMS_ITS | Clinical Summary ---
Author Organization [facility] Address [address] [place] [id number] Care Team Providers Care Roll Setter Name Role Phone Jessica May MD Primary Care Provider [phone] Allergies No known active allergies Medications lisdexamfetamin [...] on file Legal Sex Female 2:00 PM PHOTOGRAPH ENLARGER Gender Identity Not on file Sexual Orientation Not on file Last Filed Vital Signs Vital Sign Reading Time Taken Comments Blood Pressure 136/88 11/14/2024 2:13 PM PHOTOGRAPH ENLARGER Pulse 87 11/14/2024 2:13 PM PHOTOGRAPH ENLARGER Temperature 37.1 C (98.7 F) 11/14/2024 2:13 PM PHOTOGRAPH ENLARGER Respiratory Rate 18 11/14/2024 2:13 PM PHOTOGRAPH ENLARGER Oxygen Saturation 97% 11/14/2024 2:13 PM PHOTOGRAPH ENLARGER RA Inhaled Oxygen Concentration - - Weight 65.3 kg (144 lb) 11/14/2024 2:13 PM PHOTOGRAPH ENLARGER Height 162.6 cm (5' 4) 11/14/2024 2:13 PM PHOTOGRAPH ENLARGER Body Mass Index 24.72 11/14/2024 2:13 PM PHOTOGRAPH ENLARGER Plan of Treatment Health Maintenance Due Date [...] season) 2024 12/01/2021, 02/24/2021, 02/03/2021 PHQ-2 (Physician [place]) 10/31/2024 Meningococcal B Vaccine Aged Out No l onger eligible based on patient's age to complete this topic Meningococcal Vaccine Aged Out No nicole kathia eligible based on patient's age to complete this topic RSV Immunizations Under 20 Months Aged Out No longer eligible b ased on patient's age to complete this topic Insurance Care Teams Roll Setter Relationship Specialty Start Date End Date Jessica May MD [facility] [place] [address] PCP - General Internal Medicine-Endocrinology, Diabetes & Metabolism 11/06/24
--- OUTSIDE RECORDS SUMMARY | 2025-06-24 01:19 | XMS_ITS | Patient Health Record ---
Author Organization [facility] Address [address] [address] Care Team Providers Care Supervisor Hot Dip Tinning Name Role Phone Isac Cota Primary Care Provider [phone] Jessica May Unavailable [phone] Migration, Provider Unavailable Unavailable Allergies No Known Allergies Results Component Value Reference Range Notes COMPREHENSIVE METABOLIC PANE L Reviewed date:07/29/2024 08:17:37 PM Interpretation: Performing Lab:[facility], [address], [place], [address] Paola Gomes Notes/Report: FASTING:YES FASTING: YES VITAMIN D, 25-HYDROXY, LC/MS /MS Reviewed date:07/29/2024 08:23:08 PM Interpretation: Performing Lab:Samreen [facility], [address] [place], [address] Paola Gmoes MD Notes/Report: FASTING:YES FASTING: YES ACTH, PLASMA Reviewed date:07/31/2024 09:13:17 PM Interpretation: Performing Lab:[facility], [address], [place], [address] Abdulkadir Mckenzie M.D.,PhD Notes/Report: FASTING:YES FASTING: YES RHONDA IFA SCREEN W/REFL TO TIT ER AND PATTERN, IFA Reviewed date:07/29/2024 08:25:35 PM Interpretation: Performing Lab:[facility], [address] [place], [address] Paola Gomes MD Notes/Report: FASTING:YES FASTING: YES TSI (THYROID STIMULATING IMM UNOGLOBULIN) Reviewed date:08/02/2024 08:58:30 PM Interpretation: Performing Lab:Samreen LOVELACE/[facility],, [address] [place], [address] Ava Nunez MD,PhD,NADER Notes/Report: FASTING:YES FASTING: YES HOMOCYSTEINE, CARDIOVASCULAR Reviewed date:07/29/2024 08:17:23 PM Interpretation: Performing Lab:Samreen FANG, [address] [place], [address] Paola Gomes MD Notes/Report: FASTING:YES FASTING: YES HOMOCYSTEINE 6.7 <10.4 umol/L Homocysteine is increased by functional deficiency of folate or vitamin B12. Testing for methylmalonic acid differentiates between these deficiencies. Other causes of increased homocysteine include renal failure, folate antagonists such as methotrexate and phenytoin, and exposure to nitrous oxide. Annie Power, et al., Marisa Sewage Disposal Engineer Med. 1999;131(5):331-9. T3, FREE Reviewed date:07/29/2024 08:23:01 PM Interpretation: Performing Lab:Samreen FANG, [address] [place], [address] Paola Gomes MD Notes/Report: FASTING:YES FASTING: YES CORTISOL, TOTAL Reviewed date:07/29/2024 08:25:24 PM Interpretation: Performing Lab:Samreen FANG, [address] [place], [address] Paola Gomes MD Notes/Report: FASTING:YES FASTING: YES DHEA SULFATE Reviewed date:07/29/2024 08:23:27 PM Interpretation: Performing Lab:Samreen FANG, [address] [place], [address] Paola Gomes MD Notes/Report: FASTING:YES FASTING: YES C-REACTIVE PROTEIN Reviewed date:07/29/2024 08:23:44 PM Interpretation: Performing Lab:Samreen FANG, [address] [place], [address] Paola Gomes MD Notes/Report: FASTING:YES FASTING: YES CBC (INCLUDES DIFF/PLT) Reviewed date:07/29/2024 08:25:57 PM Interpretation: Performing Lab:[facility], [address] [place], [address] Paola Gomes Notes/Report: FASTING:YES FASTING: YES VITAMIN B12/FOLATE, SERUM PA CLOTILDE Reviewed date:07/29/2024 08:24:58 PM Interpretation: Performing Lab:LEONCIO, [facility], [address], [place], [address] Paola Gomes MD Notes/Report: FASTING:YES FASTING: YES IRON AND TOTAL IRON BINDING CAPACITY Reviewed date:07/29/2024 08:25:09 PM Interpretation: Performing Lab:[facility]IO [facility], [address], [place], [address] Paola Gomes MD Notes/Report: FASTING:YES FASTING: YES SED RATE BY MODIFIED WESTERG VALERIE Reviewed date:07/29/2024 08:25:42 PM Interpretation: Performing Lab:[facility], [address] [place], [address] Paola Gomes Notes/Report: FASTING:YES FASTING: YES T4, FREE Reviewed date:07/29/2024 08:24:24 PM Interpretation: Performing Lab:[facility], [address] [place], [address] Paola Gomes Notes/Report: FASTING:YES FASTING: YES TSH Reviewed date:07/29/2024 08:23:17 PM Interpretation: Performing Lab:[facility], [address] [place], [address] FabiolaLoree Gomes Notes/Report: FASTING:YES FASTING: YES THYROID PEROXIDASE ANTIBODIE S Reviewed date:07/30/2024 09:27:32 PM Interpretation: Performing Lab:MADDY, [facility], [address], [place], [address] Sam Burciaga Notes/Report: FASTING:YES FASTING: YES THYROID PEROXIDASE ANTIBODIES 3 <9 IU/mL TESTOSTERONE, FREE (DIALYSIS ) AND TOTAL,MS Reviewed date:08/02/2024 08:58:40 PM Interpretation: Performing Lab:Z3E, [facility], [address] [place] [address], [address], [place], [address] Tonya Maza MD,PhD Notes/Report: FASTING:YES FASTING: YES TESTOSTERONE, TOTAL, MS 13 2-45 ng/dL For additional information, please refer to https://education.[employer].Nichewith/faq/EJT328 (This link is being provided for informational/educational purposes only.) (Note) This test was developed and its analytical performance characteristics have been determined by [employer]. It has not been cleared or approved by the FDA. This assay has been validated pursuant to the CLIA regulations and is used for clinical purposes. TESTOSTERONE, FREE 0.6 0.1-6.4 pg/mL (Note) This test was developed and its analytical performance characteristics have been determined by [employer]. It has not been cleared or approved by the FDA. This assay has been validated pursuant to the CLIA regulations and is used for clinical purposes. [facility] [employer] [facility] [address] [place] [address],[address] [place] [address] Tonya Maza MD, PhD MAGNESIUM, RBC Reviewed date:08/01/2024 07:53:01 PM Interpretation: Performing Lab:Z3E, [facility], [address] [place] [address], [address], [place], [address] Tonya Maza MD,PhD Notes/Report: FASTING:YES FASTING: YES MAGNESIUM, RBC 6.1 4.0-6.4 mg/dL (Note) This test was developed and its analytical performance characteristics have been determined by [employer]. It has not been cleared or approved by the FDA. This assay has been validated pursuant to the CLIA regulations and is used for clinical purposes. [facility] [address] [place] [address],[address] [facility] [id number] Tonya Maza MD, PhD COMPREHENSIVE METABOLIC PANE L Reviewed date:10/09/2024 09:20:38 AM Interpretation: Performing Lab:, [facility], [address] [place], [address] [facility] Laxmi Gomes Notes/Report: VITAMIN D, 25-HYDROXY, LC/MS /MS Reviewed date:10/09/2024 09:20:38 AM Interpretation: Performing Lab:LEONCIO, Samreen [facility], [address] [place], [address] Paola Gomes MD Notes/Report: T3, FREE Reviewed date:10/09/2024 09:20:38 AM Interpretation: Performing Lab:LEONCIO, Samreen [facility], [address] [place], [address] Paola Gomes MD Notes/Report: ESTRADIOL Reviewed date:10/10/2024 08:30:43 AM Interpretation: Performing Lab:[facility], [address] [place], [address] [facility] Laxmi Gomes Notes/Report: CBC (INCLUDES DIFF/PLT) Reviewed date:10/09/2024 09:20:38 AM Interpretation: Performing Lab:Samreen LANGFORD [facility], [facility] [place], [address] [facility] Laxmi Gomes Notes/Report: PROGESTERONE Reviewed date:10/10/2024 09:19:14 PM Interpretation: Performing Lab:Samreen LANGFORD [facility], [address] [place], [address] [facility] Laxmi Gomes Notes/Report: LIPID PANEL Reviewed date:10/09/2024 09:20:38 AM Interpretation: Performing Lab:Samreen LANGFORD [facility], [address] [place], [address] [facility] Laxmi Gomes Notes/Report: T4, FREE Reviewed date:10/09/2024 09:20:38 AM Interpretation: Performing Lab:Samreen LANGFORD [facility]Re[facility] Mexico[facility], [address] [place], [address] [facility] Laxmi Gomes Notes/Report: TSH Reviewed date:10/09/2024 09:20:38 AM Interpretation: Performing Lab:[facility]ORDRe[facility], [address] [place], [address] [facility] Laxmi Gomes Notes/Report: TESTOSTERONE, FREE (DIALYSIS ) AND TOTAL,MS Reviewed date:10/13/2024 10:53:49 AM Interpretation: Performing Lab:Z3Sallie, [facility], [address], [address], [place], [address] Tonya Maza MD,PhD Notes/Report: TESTOSTERONE, TOTAL, MS 17 2-45 ng/dL For additional information, please refer to https://education.[employer].com/faq/TMT871 (This link is being provided for informational/educational purposes only.) (Note) This test was developed and its analytical performance characteristics have been determined by [employer]. It has not been cleared or approved by the FDA. This assay has been validated pursuant to the CLIA regulations and is used for clinical purposes. TESTOSTERONE, FREE 0.9 0.1-6.4 pg/mL (Note) This test was developed and its analytical performance characteristics have been determined by [employer]. It has not been cleared or approved by the FDA. This assay has been validated pursuant to the CLIA regulations and is used for clinical purposes. [facility] [address] [facility] [address] Tonya Maza MD, PhD CYCLIC CITRULLINATED PEPTIDE (CCP) AB (IGG) Reviewed date:11/12/2024 01:35:27 PM Interpretation: Performing Lab:[facility], [address] [place], [address] Paola Gomes MD Notes/Report: RHEUMATOID FACTOR Reviewed date:10/31/2024 09:53:58 AM Interpretation: Performing Lab:[facility]reen [facility], [address] [place], [address] Paola Gomes MD Notes/Report: Reason For Referral Reason can we please refer patient to a energy specialist, she has lung nodules and shortness of breath, should be an urgent referral to Buck Bell MD at [facility] or [facility]- their number is [phone] thank you so much URGENT REFERRAL Referral Organization [facility], [facility] - Jessica May Referring Provider First Name Isac Referring Provider Last Name Cipriano Referred Provider Specialty Pulmonary Di steph Referral Priority Routine Reason patient had a border line positive CCP antibody can we please make sure she has a copy of this and a copy gets to Dr. Swanson with referral; she has a lot of arthritis and pain, has lung nodules and concerns for rheumatoid arthritis thank you so much Referral Organization [facility] - [facility] Referring Provider First Name Isac Referring Provider Last Name Cipriano Referred Provider Specialty Rheumatology Referral Priority Routine Medications Medication SIG (Take, Route, Frequency, Duration) Notes Start Date End Date Status Testosterone Enanthate 200 MG/ML inject 20 mg subcutaneously weekly for 90 days 11/20/2024 Active Meloxicam 15 MG 1 tab(s) orally once a day Active Estradiol 2 MG 1 tab(s) orally once a day Active Vyvanse 70 MG 1 cap(s) orally once a day (in the morning) Active Problems Problem Type SNOMED Code ICD Code Onset Dates Problem Status W/U Status Risk Notes Problem Vitamin D deficiency, unspecified (E55.9) Active confirmed Problem Autoimmune thyroiditis (92616628) Autoimmune thyroiditis (E06.3) Active confirmed Problem Polyarthritis (791397530) Polyarthritis, unspecified (M13.0) Active confirmed Problem Menopause (853394849) Menopausal and female climacteric states (N95.1) Active [...] 99% Encounters Encounter Location Date Provider Diagnosis [facility] - [facility] [address] [place] [address] 10/30/2024 Jessica [facility] Menopausal and female climacteric states N95.1 ; Vitamin D deficiency, unspecified E55.9 ; Autoimmune thyroiditis E06.3 and Chronic cough R05.3 [place] [address] [address] 09/15/2024 Provider Migration Menopausal and female climacteric states N95.1 [facility] [address] [place] [address] 07/25/2024 Jessica May Other fatigue R53.83 ; Nonscarring hair loss, unspecified L65.9 ; Polyarthritis, unspecified M13.0 ; Dysuria R30.0 ; Abnormal results of thyroid function studies R94.6 ; Vitamin D deficiency, unspecified E55.9 and Encounter for screening for other disorder Z13.89 [facility], [facility] [address] [place] [address] 09/25/2024 Jessica May [facility] [address] [place] [address] 10/30/2024 Isac Cota Chronic cough R05.3 [facility] [address] [address] [place] [address] 11/02/2024 Isac Cota [facility] [employer] [facility] [address] [address] [place] [address] 11/02/2024 Isac Cota [facility] [employer] [address] [place] [address] 11/27/2024 Isac Cota [facility] [address] [address] [place] [address] 08/15/2024 Jessica May Vitamin D deficiency, unspecified E55.9 ; Autoimmune thyroiditis E06.3 ; Other fatigue R53.83 ; Menopausal and female climacteric states N95.1 and Weakness R53.1 Assessments Encounter Date Diagnosis (ICD Code) Assessment Notes Treatment Notes Treatment Clinical Notes Section Notes 10/30/2024 Vitamin D deficiency, unspecified (ICD-10 - E55.9) 10/30/2024 Menopausal and female climacteric states (ICD-10 - N95.1) 07/25/2024 Other fatigue (ICD-10 - R53.83) Will send for thyroid antibodies to screen for autoimmune thyroid disease in adition to CBC, CMP, ferritin, vit D and B12/folate to screen for other potential secondary causes of fatigue. 07/25/2024 Nonscarring hair loss, unspecified (ICD-10 - L65.9) Send for testosterone, iron and hormone panel. She doesn't eat enough protein in her diet; encouraged increase protein up to 90 grams per day as she might get 40-50 grams at most. 10/30/2024 Chronic cough (ICD-10 - R05.3) 08/15/2024 Vitamin D deficiency, unspecified (ICD-10 - E55.9) 08/15/2024 Autoimmune thyroiditis (ICD-10 - E06.3) 10/30/2024 Autoimmune thyroiditis (ICD-10 - E06.3) 07/25/2024 Polyarthritis, unspecified (ICD-10 - M13.0) Send for autoimmune panel to screen for lupus/rheumatoid arthritis. 08/15/2024 Other fatigue (ICD-10 - R53.83) 10/30/2024 Chronic cough (ICD-10 - R05.3) 09/15/2024 Menopausal and female climacteric states (ICD-10 - N95.1) 07/25/2024 Dysuria (ICD-10 - R30.0) UA was clear / did not indicate UTI. Recommended AZO / cranberry urine treatment as she likely needs to mucosal analgesia. 08/15/2024 Menopausal and female climacteric states (ICD-10 - N95.1) 07/25/2024 Abnormal results of thyroid function studies (ICD-10 - R94.6) Send for full thyroid panel to screen for graves disease as she does have family hx of hyperthyroidism. She has had increased fatigue, anxiety and weight loss (10 pound unintentional loss of wt). 08/15/2024 Weakness (ICD-10 - R53.1) 07/25/2024 Vitamin D deficiency, unspecified (ICD-10 - E55.9) Send for vitamin D to screen for def- goal of 50 ng/ML to optimize bone and immune health. 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 Given number for Dr. Mo Victoria/ sleep specialist at [facility]-she is aware to reach out if referral necessary to see clinic. 07/25/2024 Other Spent 45 minute s preparing to see the patient (ex review of tests/chart), obtaining and / or reviewing separately obtained history, performing a medically appropriate examination and/or evaluation, counseling and educating the patient/family/careg iver, ordering medications, tests, or procedures, referring and communicating with other health manager primary care, documenting clinical information in the electronic or [...] 8. Vitamin D supplementation - Continue taking 6722-0355 IU daily 9. Immune system support - [...] procedures, referring and communicating with other health manager primary care, documenting clinical information in the electronic or [...] antibody test and rheumatoid panel- Refer to knot tying operator (Dr. Swanson at [facility])- Continue meloxicam for pain management 2. [...] patient to schedule mammogram when available in [place] 8. Pharmacy and insurance- Send testosterone prescription to the patient's regular pharmacy- Assist patient in finding a CT scan facility with availability (e.g., [facility]) Spent 25 minutes preparing to see the patient (ex review of tests/chart), obtaining and / or reviewing separately obtained history, performing a medically appropriate examination and/or evaluation, counseling and educating the patient/family/careg iver, ordering medications, tests, or procedures, referring and communicating with other health manager primary care, documenting clinical information in the electronic or [...] Insured Coverage Start Date Coverage End Date [facility] [address] [place] [address] [id number] Oumou Arias i Self - patient is the insured Medical (General) History Medical History History ICD Code fatigue hair loss skin lesions eye sensitivity Surgical History Surgery Date(Month/Year) 1985 1989 twenty-two foot surgeries; p lantar fascitis, tarsal tunnel, bone spurs, large metatarsal implant, thumb rebuilt 2004 hysterectomy; 1995 lower back fusion L4/5 05/2022 neck fusion; c4-c7 10/2023 Hospitalization History Reason Date(Month/Year) neck fusion c4-c7 10/2023
--- OUTSIDE RECORDS SUMMARY | 2025-06-24 01:19 | XMS_ITS | Encounter Summary ---
Author Organization [facility] Address [address] [place] [place] [address] Care Team Providers Care Lab Specialist Name Role Phone Mann Tran MD Primary Care Provider [phone] Encounter Details Date Type Department Care Team (Late st Contact Info) Description 05/15/2025 Lab Requisition [facility] - DermPath Lab [address] [place] [id number] Mann Tran MD [address] [place] [address] Social History Tobacco Use Types [...] Recorded Patient Health Questionnaire-2 Score 0 11/29/2024 [facility] - Occupational Stress [...] place to sleep or slept in a intermediate (including now)? No 11/18/2023 Comments No Sex and Gender Information Value Date Recorded Sex Assigned at Female 03/08/2022 11:43 PM CDT Legal Sex Female 6:11 AM ASPNET DEVELOPER Gender Identity Female 03/08/2022 11:43 PM CDT Sexual Orientation Straight 03/08/2022 11 :43 PM CDT documented as of this encounter Functional Status * Is person deaf or have serious hearing difficulty? Answer Date of Assessment Author No 11/18/2023 3:53 PM ASPNET DEVELOPER Gege Quiroz RN * Is person blind or have serious difficulty seeing? Answer Date of Assessment Author No 11/18/2023 3:53 PM ASPNET DEVELOPER Gege Quiroz RN * Does person have [...] documented in this encounter Plan of Treatment Not on file documented as of this encounter Procedures Procedure Name Priority Date/Time Associated Diagnosis Comments DERMATOPATHOLOGY Routine 05/14/2025 12:0 0 AM CDT documented in this encounter Results * DERMATOPATHOLOGY (05/14/2025 12:00 AM CDT) Case Report Dermatopathology Report Case: [id number] Authorizing Provider: Mann Tran MD Collected: 05/14/2025 12:00 AM Ordering Location: [facility] - Received: 05/15/2025 07:18 AM DermPath Lab Pathologist: Jose Hernandez MD Specimens: A) - Skin, left shoulder B) - Skin, left back 3:07 PM CDT DERMATOPATHOLOGY LABORATORY Final Diagnosis Specimen A. 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 SKIN, left back: SQUAMOUS CELL CARCINOMA IN SITU (CORDON'S DISEASE) (D04.5) PRESENT AT MARGIN 3:07 PM CDT DERMATOPATHOLOGY LABORATORY at 1507 CDT Clinical History A-B: Changing Lesion Please check margins 3:07 PM CDT DERMATOPATHOLOGY LABORATORY Gross Description Specimen A: Received is one formalin filled container labeled with the patient's name and designated left shoulder. The specimen consists of a shave biopsy measuring 2 pieces 3x2x1,2x1x1 mm. Jar 0. Specimen B: Received is one formalin filled container labeled with the patient's name and designated left back. The specimen consists of a shave biopsy measuring 4 pieces 6x5x1,4x3x1,2x1x1,2 x1x1 mm. Jar 0. 3:07 PM T DERMATOPATHOLOGY LABORATORY Microscopic Description Specimen A. SKIN, left shoulder: Sections show a lentiginous melanocytic proliferation. Scattered melanocytes show evidence of upward migration and there are focal areas of confluence. The melanocytes are highlighted by MART-1/Melan-A and HMB45. PRAME (preferentially expressed antigen of melanoma) shows 0+ staining of the melanocytes. The lesion extends to the margins of the specimen. COMMENT: Although a lentigo is favored, based on the histological findings an early melanoma in-situ can not be ruled out. Therefore, a complete but conservative re-excision to evaluate this lesion in its entirety and assure complete removal is recommended. Specimen B. SKIN, left back: The epidermis shows parakeratosis, full thickness disorderly maturation of keratinocytes, mitoses at different levels, and dyskeratotic cells. This lesion is present at the margin of the specimen. 3:07 PM T DERMATOPATHOLOGY LABORATORY Disclaimer An external and internal positive and negative controls are appropriate for the histochemical, immunohistochemical and immunofluorescence stain(s) in this case (if any), except where stated explicitly. The performance characteristics of the stain(s) cited in this report were developed and its performance characteristic determined by the Dermatopathology Laboratory at [facility], directed by Dr. Ashley Hernandez. These tests need not be, and therefore are not, approved by the [place] Food and Drug Administration. The tests are used for clinical purposes. Billing Codes Specimen Charges Stain Charges 72870 09927 1 1 98356 29312 81020 1 1 1 3:07 PM CDT DERMATOPATHOLOGY LABORATORY Embedded Images 3:07 PM CDT DERMATOPATHOLOGY LABORATORY Pathology/Cytology TISSUE SPECIMEN FROM SKIN / Unknown 05/14/2025 05/15/2025 7:18 AM CDT Miscellaneous samples (specimen) TISSUE SPECIMEN FROM SKIN / Unknown 05/14/2025 05/15/2025 7:18 AM CDT us Mann F Schueler MD LAB - PATHOLOGY/CYTOLOGY [facility] Final Result DERMATOPATHOLOGY LABORATORY [facility] - Department of Dermatology [address], [address] [phone] documented in this encounter Visit Diagnoses Not on filedocumented in this encounter Care Teams Lab Specialist Relationship Specialty Start Date End Date Mann Tran MD [address] [place] [address] PCP - General 10/22/21 documented as of this encounter
--- OUTSIDE RECORDS SUMMARY | 2025-06-24 01:19 | XMS_ITS | Patient Health Record ---
Author Organization [facility] Address [address] [place] [address] Care Team Providers Care Corrective And Manual Arts Therapist Name Role Phone Mann Griffith Primary Care Provider Marj Martinez Jr, MD, Srini Unavailable ALLERGIES Allergen (clinical drug ingredient) Drug/Non Drug Allergy documented on EMR Reaction Allergy Type Onset Date Status Titanium titanium (uncoded) Unknown Allergy A ctive REASON FOR REFERRAL No Information MEDICATIONS Medication SIG (Take, Route, Fr equency, Duration) Notes Start Date End Date Status Cyclobenzaprine HCl Active Tramadol HCl Active Vyvanse Active Estradiol Active IMMUNIZATIONS Vaccine Route Administration Date Status Comme nts Influenza Unknown 07/21/2021 Refused pneumoccocal Unknown 07/21/2021 Refused SOCIAL HISTORY Tobacco Use: Social History Observation Description Date Details (start date - stop date) Never Smoker NA - NA Sex Assigned At : Social History Observation Description Sex Assigned At Unknown Tobacco Use: Question Answer Notes Patient is a: nonsmoker Alcohol screening: Question Answer Notes Did you have a drink contain ing alcohol in the past year? Yes How often did you have a dri nk containing alcohol in the past year? Two to four times a month (2 points) How many drinks did you have on a typical day when you were drinking in the past year? 1 or 2 (0 points) How often did you have six o r more drinks on one occasion in the past year? Never (0 points) Points 2 Interpretation Negative PROBLEMS Problem Type ICD Code Onset Dates Problem Status W/U Status Risk SNOMED Code Notes Problem Trochanteric bursitis, right hip (M70.61) 0 Active confirmed 9447560 Problem Trochanteric bursitis, left hip (M70.62) 0 Active confirmed [id number] PLAN OF TREATMENT No Information Insurance Providers Payer Name Payer Address Payer Phone Subscriber Number Group Number Insured Name Patient Relationship to Insured Coverage Start Date Coverage End Date [facility] [address] [address] [place] [phone] [id number] Gualberto Arias i Spouse - patient is the spouse of the insured MEDICAL (GENERAL) HISTORY Medical History History ICD Code skin cancer Surgical History Surgery Date(Month/Year) hysterectomy thumb surgery foot surgery
--- NOTE | 2025-06-24 07:22 | WPDHPUPDATE1 ---
History and Physical Update Update Date/Time: 06/24/25 07:22 History and Physical has been reviewed, including an updated exam of the patient. There are NO changes in the patient's condition. Risks, benefits, and alternatives have been discussed and questions answered. Patient agrees to proceed with procedure.
[2025-06-24] MEDS: ACETAMINOPHEN 500 MG TABLET 1000 MG PO (07:28)
[2025-06-24] MEDS: LACTATED RINGERS 1,000 ML 30 ML IV CONT (07:30)
[2025-06-24] MEDS: KETOROLAC 15 MG/ML VIAL (*BKC) IV PUSH (07:34)
--- NOTE | 2025-06-24 08:16 | WPDANESEPPF ---
Anes - Initial Pre Proc Eval Procedure: Operation Date: 06/24/25 09:00 Proposed Procedures p Right Carpal and Cubital Tunnel Release - Ayad Fonseca MD Date/Time: 06/24/25 08:16 Surgeon: Ayad Fonseca MD Pre Op Diagnosis: Right Carpal and Cubital tunnel syndrome Patient Data Age: 55 Gender: F Height: 1.63 m Weight: 66.3 kg Last Vital Signs Temp 36.6 C 06/24/25 07:05 Pulse 73 06/24/25 07:05 Resp 20 06/24/25 07:05 BP 128/86 06/24/25 07:05 Pulse Ox 100 06/24/25 07:05 O2 Del Method Room Air 06/24/25 07:05 Allergies Allergy/AdvReac Type Severity Reaction Status Date / Time No Known Allergies Allergy Verified 06/13/25 13:11 Home Medications ?Medication ?Instructions ?Recorded ?Confirmed ?Type mirabegron 50 mg tablet,extended 50 mg PO HS 03/26/25 06/24/25 History release 24 hr meloxicam 15 mg tablet 15 mg PO DAILY #90 tabs 05/06/25 06/24/25 Rx lisdexamfetamine 70 mg capsule 70 mg PO DAILY #30 caps 05/24/25 06/24/25 Rx (Vyvanse) estradiol 2 mg tablet 2 mg PO DAILY #90 tabs 05/28/25 06/24/25 Rx glucosamine-chondroitin 250 mg-200 2 tablet PO DAILY 06/13/25 06/24/25 History mg tablet Patient hx anesthesia problems: none Family hx anesthesia problems: none Results Review: All pre-operative results and documents have been reviewed as part of the pre-operative evaluation. [facility] Past Medical History Medical History Carpal tunnel syndrome of right wrist Cubital tunnel syndrome on right Spondylolysis of lumbar region Lumbar spine pain Lower back pain Skin lesion of back Skin lesion of left arm Bilateral elbow joint pain Pain of both elbows Medial epicondylitis of both elbows Trigger thumb Trigger thumb, left thumb Laceration of right lower leg Left knee sprain Closed fracture of left distal fibula Bilateral otitis media with effusion Family history of liver cancer Liver cyst Lung nodules Bronchitis Positive anti-CCP test Abnormal C-reactive protein Hypocalcemia Hyperglycemia Abnormal EKG Left arm numbness Excessive daytime sleepiness Screening, lipid Screening for malignant neoplasm of breast Skin abnormalities Eustachian tube dysfunction Pain, hand joint Onychomycosis Encounter before starting medication Abnormal MRI, lumbar spine Migraines COVID-19 Discoloration of skin of toe Paresthesia Fatigue Raynauds disease Fever Unspecified disturbances of smell and taste Binge eating disorder Lumbar back pain with radiculopathy affecting left lower extremity Left lateral epicondylitis Nightmare disorder Numbness of right foot Trochanteric bursitis of left hip Surgical History Surgical History Previous section History of colposcopy History of dilatation and curettage History of endometrial ablation History of hysteroscopy H/O: hysterectomy H/O spinal fusion History of tubal ligation History of foot surgery Family History Family History Father Diabetes mellitus Heart disease Liver cancer Mother No problems noted. Sibling Tongue cancer COVID-19 Other Family history of malignant neoplasm Social History Social History Social History: caffeine use Smoking status: Never smoker Second hand tobacco smoke exposure: No Alcohol intake: current Alcohol use details: 4-6 monthly Substance use: former Substance use type: does not use Other substance usage details: gummies Do You Feel Safe in your Home?: Yes Lack of Transportation: No Lack of Food: Never True Current Housing: I Have Housing Concerned About Future Housing: No Difficulty Paying Gas/Electric Bills: No Difficulty Paying for Meds: No Currently Unemployed: No Education: Trade/Vocational Certificate Difficulty w/ Childcare or Family Care: No Living arrangements: with family Occupation/Education: occupation 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 Informed Consent: The patient's anesthetic plan and its attendant risks and benefits were discussed with the patient/family/POA. Questions were solicited and answers provided to the satisfaction of the patient/family/POA.
[2025-06-24] MEDS: ceFAZolin 2 GM in SODIUM CHLORIDE 0.9% IV 50 ML 100 ML IVPB (08:53)
[2025-06-24] MEDS: BUPIVACAINE/EPINEPHRINE 0.5% 50 ML VIAL 30 ML INFILTRATE (08:53)
--- NOTE | 2025-06-24 10:14 | W.PM.PROC2 ---
Procedure Note - Detailed Date of Procedure 06/24/25 Pre-op Diagnosis Right Carpal and Cubital tunnel syndrome Post-op Diagnosis Same Procedure Performed Right Cubital tunnel and carpal tunnel release. 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 Conservative treatment with bracing/ splinting, activity modifications, medication, ergonomics, injections has failed. Symptoms are daily and affect ability to use hand. The patient desires operative treatment. Description of Procedure After informed consent was given, the operative extremity was marked in the preoperative holding area. Intravenous antibiotics were given. The patient was taken to the operating room and underwent general anesthetic by the anesthesia team. A time-out was performed confirming patient, procedure, and operative site. Local infiltrate at the carpal tunnel was done with 0.5% marcaine. Prepping and draping was done using chloraprep skin solution with usual surgical sterile technique. Anatomic landmarks marked on skin. Hand was exsanguinated and arm tourniquet inflated to 250mmHg. elbow was addressed 1st. Incision with a 15 blade knife made over the cubital tunnel just posterior to the medial epicondyle. Hemostasis controlled with bipolar cautery. Dissection carried down to the fascia overlying the cubital tunnel. ulnar nerve was identified proximally and released from proximal to distal under direct visualization dividing the fascia overlying the nerve. Dissection carried distally to the flexor muscle tissue ensuring good release. Elbow then taken through range of motion and the nerve was noted to be stable. Wound thoroughly irrigated and subcutaneous tissue repaired with 3 0 Monocryl interrupted suture and skin repaired with 4 O nylon running suture. right wrist was then addressed. Incision was made with #15 blade knife in skin crease on volar palm. Hemostasis was achieved with electrocautery. Careful dissection was carried down to the transverse carpal ligament. Retractors were placed. Ligament overlying median nerve was incised in line with skin incision using pamunkey blade. Proximal and distal release was done with metzenbaum scissors under direct visualization. Mosquito clamp was placed deep to ligament to protect nerve during release. The nerve was inspected and noted to be intact with mild flattening. Tendons had good excursion. The tourniquet was then released and pressure held. Bleeding points were coagulated with bipolar cautery. The wound was thoroughly irrigated with antibiotic solution. The skin was closed with 4-0 nylon interrupted suture. A sterile dressing was applied. Good capillary refill in the fingers and thumb was noted. The patient was transported to the recovery room in stable condition. All sponge, needle, instrument counts were correct at the end of the case. Estimated Blood Loss 2 Tourniquet Time Total Tourniquet Time: 38 Drains No Packing No Pathology None sent Complications None Condition Stable Disposition PACU [facility] Billing Surgery - Charge Forward: Surgery Billing ([id number], [id number])
[2025-06-24] MEDS: oxyCODONE HCL (*CRX) 5 MG TAB IR PO (11:04)
== END 2025-06-24 11:24 | disposition home or self-care (01) ==
PROVIDERS: PCP Family Medicine; Visit Provider Orthopaedic Surgery
PROC: (CPT 64721; principal; 2025-06-24 09:00)
DX: G56.01 Carpal tunnel syndrome, right upper limb (principal); G56.21 Lesion of ulnar nerve, right upper limb; E83.51 Hypocalcemia; R73.9 Hyperglycemia, unspecified; I73.00 Raynaud's syndrome without gangrene; F50.819 Binge eating disorder, unspecified; Z68.25 Body mass index [BMI] 25.0-25.9, adult; F51.5 Nightmare disorder; F12.90 Cannabis use, unspecified, uncomplicated; Z98.890 Other specified postprocedural states; Z98.891 History of uterine scar from previous surgery; Z98.1 Arthrodesis status; Z98.51 Tubal ligation status; Z80.0 Family history of malignant neoplasm of digestive organs; Z80.8 Family history of malignant neoplasm of other organs or systems; Z82.49 Family history of ischemic heart disease and other diseases of the circulatory system
CPT/HCPCS: 64718; 64721; J0690; A9270; J1100; J1885; J2003; J2250; J2405; J2704; J3010; J7120

== ENCOUNTER 2025-07-11 13:27 | Outpatient (CLI) | payer BC, SELFPAY ==
--- NOTE | ~2025-07-11 | MM_ITS ---
EXAMINATION: MM screening edy BI w saskia HISTORY: Screening TECHNIQUE: Craniocaudal and mediolateral oblique 3-D tomosynthesis images were obtained and synthetic 2-D images were generated. CAD analysis was submitted and interpreted. COMPARISON: Comparison to multiple prior studies sequentially, with oldest reviewed study dated , 03/26/2009 BREAST PARENCHYMAL COMPOSITION: There are scattered areas of fibroglandular density. FINDINGS: There is no evidence of suspicious mass, calcification, or architectural distortion to suggest malignancy in either breast. IMPRESSION: 1. No mammographic evidence of malignancy. 2. Recommend routine screening mammography in one year. BI-RADS Category 1: Negative Reviewed, dictated and finalized at location B.
--- OUTSIDE RECORDS SUMMARY | 2025-07-11 15:12 | XMS_ITS | Clinical Summary ---
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 Gender Identity Not on file Sexual Orientation Not on file Last Filed Vital Signs Vital Sign Reading Time Taken Comments Blood Pressure 136/88 11/14/2024 2:13 PM GARAGE DOOR OPENER INSTALLER Pulse 87 11/14/2024 2:13 PM GARAGE DOOR OPENER INSTALLER Temperature 37.1 C (98.7 F) 11/14/2024 2:13 PM GARAGE DOOR OPENER INSTALLER Respiratory Rate 18 11/14/2024 2:13 PM GARAGE DOOR OPENER INSTALLER Oxygen Saturation 97% 11/14/2024 2:13 PM GARAGE DOOR OPENER INSTALLER RA Inhaled Oxygen Concentration - - Weight 65.3 kg (144 lb) 11/14/2024 2:13 PM GARAGE DOOR OPENER INSTALLER Height 162.6 cm (5' 4) 11/14/2024 2:13 PM GARAGE DOOR OPENER INSTALLER Body Mass Index 24.72 11/14/2024 2:13 PM GARAGE DOOR OPENER INSTALLER Plan of Treatment Health Maintenance Due Date Last Done Comments Colorectal Cancer Screening Colonoscopy (10 Years) 1969 Annual Physical 02/08/1972 Hepatitis C 1987 DTaP, Tdap and Td Vaccines ( 1 - Tdap) 02/08/1988 Hepatitis B Vaccines (1 of 3 - 19+ 3-dose series) 02/08/1988 Mammogram Screening 2009 Pneumococcal Vaccine: 50+ Years (1 of 1 - PCV) 2019 Zoster Vaccines (1 of 2) 2019 PHQ-2 (Physician [place]) 10/31/2024 COVID-19 Vaccine (4 - 2024-2 6 season) 2025 12/01/2021, 02/24/2021, 02/03/2021 Meningococcal B Vaccine Aged Out No l onger eligible based on patient's age to complete this topic Meningococcal Vaccine Aged Out No nicole kathia eligible based on patient's age to complete this topic RSV Immunizations Under 20 Months Aged Out No longer eligible b ased on patient's age to complete this topic Insurance [employer] Relationship Specialty Start Date End Date Jessica May MD [facility] [place] [address] PCP - General Internal Medicine-Endocrinology, Diabetes & Metabolism 11/06/24
--- OUTSIDE RECORDS SUMMARY | 2025-07-11 15:12 | XMS_ITS | Clinical Summary ---
Author Organization [email or web address] Address [address] [facility] [place] [address] Care Team Providers Care Patient Financial Services Specialist Name Role Phone Mann Tran MD Primary Care Provider [phone] Source Comments [email or web address],non-owned Affiliates and Associated Physician Practices is amultiple site organization consisting of ambulatory clinics and hospital sitesin [place], [place], [place] and [place]. This disclosure is being madepursuant to the Care Everywhere program and may not contain all information available regarding this patient. Last updated 18.[email or web address] Allergies No known active allergies Medications * [...] MG tablet Active mirabegron ER 24hr (Myrbetriq) 50 MG tablet 03/01/20 Active testosterone enanthate (Delatestryl) injection inject 20 mg subcutaneously weekly for 90 days 11/20/19 025 Discontin ued(List Clean-Up) B-D TB SYRINGE 1CC/27GX1/2 27G X 1/2 1 ML syringe USE WITH TESTOSTERONE INJECTIONS ONCE EVERY 10 DAYS. 12/13/19 025 Discontin ued(List Clean-Up) mupirocin (Bactroban) 2 % ointment APPLY OINTMENT TOPICALLY TO AFFECTED AREA TWICE DAILY 01/11/20 025 Discontin ued(List Clean-Up) pregabalin (Lyrica) 50 MG capsule Take 1 (one) capsule by mouth 2 times daily 04/03/20 025 Discontin ued(List Clean-Up) Active Problems Problem [...] Encounters Date Type Department Care Team Description 06/20/2025 Orders Only [facility] - Neurosurgery [address] [place] [address], [place] [address] Dory Gonzalez APRN-SWATI Gait instability ; Numbness and tingling; Acute bilateral low back pain without sciatica; Neck pain 06/12/2025 9:30 AM CDT Office Visit [facility] - Neurosurgery [address] [place] [address] Bryan Staley MD Gait instability (Primary Dx); Numbness and tingling 06/12/2025 9:01 AM CDT - 06/12/2025 11:59 PM CDT Hospital Encounter [facility] OP [address] [place] [address] Bryan Staley MD Discharge Disposition: Home or Self Care 06/12/2025 Travel 05/28/2025 Travel 05/28/2025 Telephone [facility] - Centralized Scheduling [address] [place] [address] Bryan Staley MD Appointment 05/28/2025 Orders Only [facility] - Neurosurgery [address] [place] [address], [facility] [place] [address] Bryan Staley MD Neck pain 05/15/2025 Lab Requisition [facility] - DermPath Lab [address] [facility], [place] [address] Mann Tran MD 04/17/2025 9:30 AM CDT Office Visit [facility] - Neurosurgery [address] [facility], [place] [address] Bryan Staley MD S/P lumbar fusion (Primary Dx); Acute bilateral low back pain without sciatica 04/17/2025 Travel from Last 3 Months Family History Medical History Relation Name Comments Hypertension Mother Relation Name Status Comments Mother Social History Tobacco Use Types Packs/Day Years Used Date Smoking Tobacco: Never Smokeless Tobacco: Never Tobacco Cessation:Counseling Given: No Alcohol Use Standard Drinks/Week Comments Yes 0 [...] Recorded Patient Health Questionnaire-2 Score 0 11/29/2024 [facility] [place] [facility] Occupat ional Health - Occupational Stress [...] PM CDT Legal Sex Female 6:11 AM HEARING AID REPAIRER Gender Identity Female 03/08/2022 11:43 PM CDT Sexual Orientation Straight 03/08/2022 11 :43 PM CDT Last Filed Vital Signs Vital Sign Reading Time Taken Comments Blood Pressure 135/87 06/12/2025 9:27 AM CDT Pulse 80 06/12/2025 9:27 AM CDT Temperature 36.7 C (98.1 F) 06/12/2025 9:27 AM CDT Respiratory Rate 18 08/15/2024 9:15 AM CDT Oxygen Saturation 98% 06/12/2025 9:27 AM CDT Inhaled Oxygen Concentration 21% 06/10/2022 4 :23 AM CDT Weight 66.1 kg (145 lb 12.8 oz) 06/12/2025 9:27 AM CDT Height 162.6 cm (5' 4) 06/12/2025 9:27 AM CDT Body Mass Index 25.03 06/12/2025 9:27 AM CDT Plan of Treatment Health Maintenance Due Date [...] VACCINE (1 of 2) 2019 COVID-19 VACCINE (4 - season) 2025 12/01/2021, 02/24/2021, 02/03/2021 INFLUENZA VACCINE (#1) 2025 08/16/2015 SCREENING FOR DIABETES 11/18/2026 , [...] this topic Medical Devices Implanted Type Area Reconditioner Device Identifier Shelf Expiration Date Model / Serial / Lot Stimulan Rapid Cure Implanted:Qty: 1 on 06/07/2022 by Bryan Staley MD at [facility] N/A: Spine Lumbar Biocompstes 02/27/2025 [id number] / / [id number] Description:mixed with 500mg vancomycin powder Screw Set Spne [place] 5500 Ser Implanted:Qty: 4 on 06/07/2022 by Bryan Staley MD at [facility] N/A: Spine Lumbar [employer] [id number] / / 7.5 X 35mm [place] Screw Implanted:Qty: 2 on 06/07/2022 by Bryan Staley MD at [facility] N/A: Spine Lumbar [employer] [id number] / / 7.5 X 45mm [place] Screw Implanted:Qty: 2 on 06/07/2022 by Bryan Staley MD at [facility] N/A: Spine Lumbar [employer] [id number] / / F3d Straight 13mm Implanted:Qty: 2 on 06/07/2022 by Bryan Staley MD at [facility] N/A: Spine Lumbar [employer] 06/10/2026 [id number] / / [id number] Kore Fiber Strip 2.5cm X 5cm Implanted:Qty: 1 on 06/07/2022 by Bryan Staley MD at [facility] N/A: Spine Lumbar 10/22/2023 [id number] / [id number] / Korefiber Strip 2.5cm X 5cm Implanted:Qty: 1 on 06/07/2022 by Bryan Staley MD at [facility] N/A: Spine Lumbar 10/22/2023 [id number] / [id number] / 40mm [place] Cocr Implanted:Qty: 2 on 06/07/2022 by Bryan Staley MD at [facility] N/A: Spine Lumbar [employer] [id number] / / Screw 3.5mm 18mm Biased Ang Spne Implanted:Qty: 4 on 11/18/2023 by Bryan Staley MD at [facility] N/A: Spine Cervical [employer] [id number] / / Description:vendor tray Screw 3.5mm 20mm Biased Ang Spne Implanted:Qty: 2 on 11/18/2023 by Bryan Staley MD at [facility] N/A: Spine Cervical [employer] [place] [id number] / / Description:vendor tray Screw Set Spnl 3500 Ser Implanted:Qty: 8 on 11/18/2023 by Bryan Staley MD at [facility] N/A: Spine Cervical [employer] [id number] / / Description:vendor tray Kore Fiber Strip 2.1twt9ar Implanted:Qty: 1 on 11/18/2023 by Bryan Staley MD at [facility] N/A: Spine Cervical Musculoskeletal Transplant Foundati 08/12/2025 [id number] / [id number] / 40 Mm [place] Implanted:Qty: 2 on 11/18/2023 by Bryan Staley MD at [facility] N/A: Spine Cervical [employer] [id number] / / Description:vendor tray 80 Mm [place] Implanted:Qty: 1 on 11/18/2023 by Bryan Staley MD at [facility] N/A: Spine Cervical [id number] / / Description:vendor tray Screw 3.5mm 16mm Biased Ang Spne Implanted:Qty: 2 on 11/18/2023 by Bryan Staley MD at [facility] N/A: Spine Cervical [employer] [id number] / / Description:vendor tray Procedures Procedure Name Priority Date/Time Associated Diagnosis Comments XR CERVICAL SPINE 4 OR 5VW Routine 06/12/2025 9:12 AM CDT Neck pain DERMATOPATHOLOGY Routine 05/14/2025 12:0 0 AM CDT COMPREHENSIVE METABOLIC PANEL JESSICA 11/18/2023 4:33 PM HEARING AID REPAIRER from Last 3 Months or Most Recently Relevant to Health Maintenance Results * XR Cervical Spine 4 or 5Vw (06/12/2025 9:12 AM CDT) Anatomical Region Laterality Modality Spine Digital Radiogra phy 06/13/2025 2:10 AM CDT Impressions 06/13/2025 2:12 AM CDT IMPRESSION: Mild retrolisthesis of C4 over C5 and C5 over C6 and C6 over C7 is similar to prior. Posterior spinal fusion hardware C4 C7 levels with posterior decompression. There is moderate C5-C6 degenerative disc disease. No motion between the fused segments with bending. > Interpreting Provider: Jagdeep Armstrong MD on 06/13/2025 2:12 AM Narrative 06/13/2025 2:12 AM CDT PROCEDURE: XR CERVICAL SPINE 4 OR 5VW DATE/TIME OF EXAM: 06/12/2025 9:13 AM CLINICAL INFORMATION: None relevant/not provided if blank. Indication: M54.2: Neck pain Additional History: COMPARISON: 01/22/2025, XR CERVICAL SPINE 2 OR 3VW Procedure Note Jagdeep Armstrong MD - 06/13/2025 PROCEDURE: XR CERVICAL SPINE 4 OR 5VW DATE/TIME OF EXAM: 06/12/2025 9:13 AM CLINICAL INFORMATION: None relevant/not provided if blank. Indication: M54.2: Neck pain Additional History: COMPARISON: 01/22/2025, XR CERVICAL SPINE 2 OR 3VW IMPRESSION: Mild retrolisthesis of C4 over C5 and C5 over C6 and C6 over C7 issimilar to prior. Posterior spinal fusion hardware C4 C7 levels with posterior decompression. There is moderate C5-C6 degenerative disc disease. Nomotion between the fused segments with bending. > Interpreting Provider: Jagdeep Armstrong MD on 06/13/2025 2:12 AM Bryan Staley MD DIAGNOSTIC IMAGING ORDERABLE S Final Result * DERMATOPATHOLOGY (05/14/2025 12:00 AM CDT) Case Report Dermatopathology Report Case: [id number] Authorizing Provider: Mann Tran MD Collected: 05/14/2025 12:00 AM Ordering Location: [facility] - Received: 05/15/2025 07:18 AM [...] 6x5x1,4x3x1,2x1x1,2 x1x1 mm. Jar 0. 3:07 PM CDT DERMATOPATHOLOGY LABORATORY Microscopic Description Specimen A. SKIN, [...] the margin of the specimen. 3:07 PM CDT DERMATOPATHOLOGY LABORATORY Disclaimer An external and internal positive and negative controls are appropriate for the histochemical, immunohistochemical and immunofluorescence stain(s) in this case (if any), except where stated explicitly. The performance characteristics of the stain(s) cited in this report were developed and its performance characteristic determined by the Dermatopathology Laboratory at [facility], directed by Dr. Ashley Hernandez. These tests need not be, and therefore are not, approved by the [place] Food and Drug Administration. The tests are used for clinical purposes. Billing Codes Specimen Charges Stain Charges 36806 43144 1 1 57785 49584 53534 1 1 1 3:07 PM CDT DERMATOPATHOLOGY LABORATORY Embedded Images 3:07 PM CDT DERMATOPATHOLOGY LABORATORY Pathology/Cytology TISSUE SPECIMEN FROM SKIN / Unknown 05/14/2025 05/15/2025 7:18 AM CDT Miscellaneous samples (specimen) TISSUE SPECIMEN FROM SKIN / Unknown 05/14/2025 05/15/2025 7:18 AM CDT us Mannpily Tran MD LAB - PATHOLOGY/CYTOLOGY ORDE MARY BETH Final Result DERMATOPATHOLOGY LABORATORY [facility] - Department of Dermatology [facility] [address] [place] [address], [address] [phone] * (ABNORMAL) COMPREHENSIVE METABOLIC PANEL (11/18/2023 4:33 PM HEARING AID REPAIRER) Glucose 127(H) 70 - 105 mg/dL 11/18/2023 5:03 PM HEARING AID REPAIRER [facility] Sodium 136 136 - 145 mmol/L 11/18/2023 5:03 PM HEARING AID REPAIRER [facility] Potassium 3.8 3.5 - 5.1 mmol/L 11/18/2023 5:03 PM HEARING AID REPAIRER [facility] Chloride 106 98 - 107 mmol/L 11/18/2023 5:03 PM HEARING AID REPAIRER [facility] CO2 23 22 - 29 mmol/L 11/18/2023 5:03 PM HEARING AID REPAIRER [facility] Calcium 7.9(L) 8.4 - 10.4 mg/dL 11/18/2023 5:03 PM [facility] Anion Gap 7 6 - 16 mmol/L 11/18/2023 5:03 PM [facility] BUN 13 7 - 26 mg/dL 11/18/2023 5:03 PM [facility] Creatinine 0.67 0.57 - 1.11 mg/dL 11/18/2023 5:03 PM [facility] Alkaline Phosphatase 71 40 - 150 U/L 11/18/2023 5:03 PM [facility] ALT 16 0 - 55 U/L 11/18/2023 5:03 PM [facility] AST 21 5 - 34 U/L 11/18/2023 5:03 PM [facility] Protein Total 6.0(L) 6.4 - 8.3 gm/dL 11/18/2023 5:03 PM [facility] Albumin 3.4 3.4 - 5.0 gm/dL 11/18/2023 5:03 PM [facility] Bilirubin Total 0.4 0.2 - 1.2 mg/dL 11/18/2023 5:03 PM [facility] eGFR by CKD-EPI >90 >=90 mL/min/1.7 3 m2 11/18/2023 5:03 PM [facility] Blood BLOOD SPECIMEN / Unknown Lab Venipuncture / Unknown 11/18/2023 4:33 PM HEARING AID REPAIRER 11/18/2023 4:41 PM [facility] Mindy Martínez APRN-PEANUT CLEANER LAB - CHEMISTRY [place] [place] Final Result [facility] [address] [place] [address] [phone] from Last 3 Months or Most Recently Relevant to Health Maintenance Insurance [employer] Advance Directives * Full Code (Latest Code Status on File) Date Activated Date Inactivated Comments 11/18/2023 3:48 PM 11/22/2023 2:57 PM * Full Code Date Activated Date Inactivated Comments 06/07/2022 12:09 PM 06/10/2022 1:25 PM * Full Code Date Activated Date Inactivated Comments 06/07/2022 12:09 PM 06/07/2022 12:09 PM Care Teams Patient Financial Services Specialist Relationship Specialty Start Date End Date Mann Tran MD [address] [place] [address] PCP - General 10/22/21
--- OUTSIDE RECORDS SUMMARY | 2025-07-11 15:12 | XMS_ITS | Clinical Summary ---
Author Organization [facility] [address] Address [address] [place] [address] Care Team Providers Care Jewel Cupping Machine Operator Name Role Phone Mann Tran MD Primary Care Provider [phone] Allergies Active Allergy Reactions Criticality Noted Date [...] on file Legal Sex Female 4:53 AM STAIN REMOVER Gender Identity Not on file Sexual Orientation Not on file Obstetrics History Last Filed Vital Signs Vital Sign Reading Time Taken Comments Blood Pressure 146/89 12/17/2024 10:48 AM STAIN REMOVER Pulse 91 12/17/2024 10:48 AM STAIN REMOVER Temperature 37.2 C (98.9 F) 10/18/2024 3:39 PM STAIN REMOVER Respiratory Rate 18 12/17/2024 10:48 AM STAIN REMOVER Oxygen Saturation 99% 10/18/2024 3:39 PM STAIN REMOVER Inhaled Oxygen Concentration - - Weight 67.1 kg (148 lb) 12/17/2024 10:48 AM STAIN REMOVER Height 162.6 cm (5' 4) 12/17/2024 10:48 AM STAIN REMOVER Body Mass Index 25.4 12/17/2024 10:48 AM STAIN REMOVER Plan of Treatment Health Maintenance Due Date Last Done Comments Breast Cancer Screening-Mammogram 1969 Cervical Cancer Screening 1969 Colon Cancer Screening-Colonoscopy 1969 Depression Screening 1969 Hepatitis C Screening 1969 DTaP/Tdap/Td Vaccine (1 - Tdap) 02/08/1980 Hepatitis B Screening 1987 Regular Well Visit/Exam 18-64 1987 Zoster Vaccine (1 of 2) 2019 Covid-19 Vaccine (2024-2 6 season) 2025 12/01/2021, 02/24/2021, 02/03/2021 Influenza Vaccine (#1) 2025 08/16/2015 Pneumococcal vaccine <65 Aged Out No longer eligible based on patient's age to complete this topic Insurance AN[employer]M ACCESS CHOICE [employer] ACCESS CHOICE Care Teams Jewel Cupping Machine Operator Relationship Specialty Start Date End Date Mann Tran MD [address] [place] [address] PCP - General Family Medicine 05/20/24
--- OUTSIDE RECORDS SUMMARY | 2025-07-11 15:12 | XMS_ITS | Encounter Summary ---
Author Organization [facility] Address [address] [facility] [place] [address] Care Team Providers Care Filling Layer Up Name Role Phone Mann Tran MD Primary Care Provider [phone] Encounter Details Date Type Department Care Team (Late st Contact Info) Description 05/15/2025 Lab Requisition [facility] - DermPath Lab [address] [facility], [place] [id number] Mann Tran MD [address] [place] [address] Social History Tobacco Use Types [...] PM CDT Legal Sex Female 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 Answer Date of Assessment Author No 11/18/2023 3:53 PM CHANNEL CEMENTER INSOLE MACHINE Gege Quiroz RN * Is person blind or have serious difficulty seeing? Answer Date of Assessment Author No 11/18/2023 3:53 PM CHANNEL CEMENTER INSOLE MACHINE Gege Quiroz RN * Does person have [...] AM CDT) Case Report Dermatopathology Report Case: [id number] Authorizing Provider: Mann Tran MD Collected: 05/14/2025 12:00 AM Ordering Location: [facility] - Received: 05/15/2025 07:18 AM [...] characteristic determined by the Dermatopathology Laboratory at [facility], directed by Dr. Ashley Hernandez. These tests need not be, and therefore are not, approved by the [place] Food and Drug Administration. The tests are used for clinical purposes. Billing Codes Specimen Charges Stain Charges 74003 08219 1 1 24791 54796 95589 1 1 1 3:07 PM CDT DERMATOPATHOLOGY LABORATORY Embedded Images 3:07 PM CDT DERMATOPATHOLOGY LABORATORY Pathology/Cytology TISSUE SPECIMEN FROM SKIN / Unknown 05/14/2025 05/15/2025 7:18 AM CDT Miscellaneous samples (specimen) TISSUE SPECIMEN FROM SKIN / Unknown 05/14/2025 05/15/2025 7:18 AM CDT us Mann F Schueler MD LAB - PATHOLOGY/CYTOLOGY [place] Final Result DERMATOPATHOLOGY LABORATORY [facility] - Department of Dermatology [address], [address] [phone] documented in this encounter Visit Diagnoses Not on filedocumented in this encounter Care Teams Filling Layer Up Relationship Specialty Start Date End Date Mann Tran MD [address] [place] [address] PCP - General 10/22/21 documented as of this encounter
== END 2025-07-11 13:28 | disposition home or self-care (01) ==
LOC: CHSIMG 13:28
PROVIDERS: PCP Family Medicine; Visit Provider Obstetrics & Gynecology
DX: Z12.31 Encounter for screening mammogram for malignant neoplasm of breast (principal)
CPT/HCPCS: 77063; 77067

== ENCOUNTER 2025-08-22 02:31 | Day surgery (SDC) | payer BC, SELFPAY ==
--- OUTSIDE RECORDS SUMMARY | 2024-09-15 16:00 | XMS_ITS ---
Author Organization [facility] Address [address] [place], [place] [address] Care Team Providers Care Wire Galvanizer Name Role Phone Ronal Cota Primary Care Provider Migration, Provider Unavailable [facility] Conversion Encounter Medications Medication SIG (Take, Route, Frequency, Duration) Notes Start Date End Date Status Testosterone Enanthate 200 MG/ML Solution inject 20 mg subcutaneously every 10 days; Duration: 90 days 08/15/2024 Active Estradiol 2 MG Tablet 1 tab(s) orally once a day Active Meloxicam 15 MG Tablet 1 tab(s) orally once a day Active Vyvanse 70 MG Capsule 1 cap(s) orally on ce a day (in the morning) Active Encounters Encounter Location Date Provider Diagnosis [address] [phone] 09/15/2024 Provider Migration Menopausal and femal e climacteric states N95.1 Assessments Encounter Date Diagnosis (ICD Code) Assessment Notes Treatment Notes Treatment Clinical Notes Section Notes 09/15/2024 Menopausal and female climacteric states (ICD-10 - N95.1) Plan Of Treatment Medication Medication Name Sig Start Date Stop Date Notes Testosterone Enanthate 200 MG/ML Solution inject 20 mg subcutaneously every 10 days; Duration: 90 days 08/15/2024 Progress Notes * Oumou BRASWELLDOB: [birth year] (55 yo F)Acc No.[id number]:09/15/2024 Patient: Stephanie Oumou clemens Provider: Roseann calvo Migration :1970 A ge:54 Y S ex:Female Date:09/15/2024 Address:[address] [id number] Pcp:Ronal Cota Subjective: * Chief Complaints: * M ultum To [facility] Conversion Encounter * Medications: T akingVyvanse 70 MG Capsule 1 cap(s) orally once a day (in the morning) Meloxicam 15 MG Tablet 1 tab(s) orally once a day Estradiol 2 MG Tablet 1 tab(s) orally once a day Taking Vyvanse 70 MG Capsule 1 cap(s) orally once a day (in the morning) Taking Meloxicam 15 MG Tablet 1 tab(s) orally once a day Taking Estradiol 2 MG Tablet 1 tab(s) orally once a day Assessment: * Assessment: 1. M enopausal and female climacteric states - N95.1 Plan: * Treatment: * Electronic signature of Harley woods Migration on 08/22/2025 at 02:34 AM CDT Sign off status: Pending * Provider: Roseann calvo Migration Date: 11/15/2023 Generated for Derik cervantes/Eugenia/Yulisa on: 02:34 AM CDT
--- OUTSIDE RECORDS SUMMARY | 2024-09-15 16:00 | XMS_ITS ---
Author Organization [facility] Address [address] [address] Care Team Providers Care Analytical Statistician Name Role Phone Rachel CotaCaterina Primary Care Provider Migration, Provider Unavailable Unavailable [facility] Conversion Encounter Medications Medication SIG (Take, Route, Frequency, Duration) Notes Start Date End Date Status Vyvanse 70 MG 1 cap(s) orally once a day (in the morning) Active Testosterone Enanthate 200 MG/ML inject 20 mg subcutaneously every 10 days; Duration: 90 days 08/15/2024 Active Meloxicam 15 MG 1 tab(s) orally once a day Active Estradiol 2 MG 1 tab(s) orally once a day Active Encounters Encounter Location Date Provider Diagnosis [facility] [address] [address] 09/15/2024 Provider Migration Menopausal and female climacteric states N95.1 Assessments Encounter Date Diagnosis (ICD Code) Assessment Notes Treatment Notes Treatment Clinical Notes Section Notes 09/15/2024 Menopausal and female climacteric states (ICD-10 - N95.1) Plan Of Treatment Medication Medication Name Sig Start Date Stop Date Notes Testosterone Enanthate 200 MG/ML inject 20 mg subcutaneously every 10 days; Duration: 90 days 08/15/2024 Progress Notes * Oumou BRASWELLDOB: [birth year] (55 yo F)Acc No.[id number]:09/15/2024 Patient: Stephanie Oumou DO Provider: Roseann calvo Migration :1970 A ge:54 Y S ex:Female Date:09/15/2024 Address:[address] [facility] Pcp:Isac Cota Subjective: * Chief Complaints: * 1 . Multum To Medispan Conversion Encounter. * Medical History: * Medications: T aking Vyvanse(Lisdexamfetamine Dimesylate) 70 MG Capsule 1 cap(s) orally once a day (in the morning) , Taking Meloxicam 15 MG Tablet 1 tab(s) orally once a day , Taking Estradiol 2 MG Tablet 1 tab(s) orally once a day Objective: * Vitals: Assessment: * Assessment: 1. M enopausal and female climacteric states - N95.1 Plan: * Treatment: * Billing Information: * Visit Code: * Procedure Codes: * Electronic signature of Prov peggy Migration on 08/22/2025 at 02:35 AM CDT Sign off status: Pending * Provider: Roseann calvo Migration Date: 11/15/2023 Generated for Derik cervantes/Eugenia/Yarielitting on: 02:35 AM CDT
--- NOTE | 2025-08-13 14:42 | SUR.PREOP ---
[facility] has started construction of its new state of the art ER which will open Spring 2026. With this, we anticipate parking may be a challenge for some our surgical patients and families. Parking spaces are limited but are available for all Surgical, obstetrics, and ER patients sharing this lot. If you arrive and find you are having a hard time finding a parking space, please note that we understand the challenges, please drive around the hospital and park near Hospital Entrance 1. When you enter this entrance, you can ask a volunteer to direct or take you back to the surgical waiting area to check in. We appreciate everyone?s understanding of these expected challenges while we build for your future. Report to the Outpatient Waiting Room, entrance under the green pavilion located off [address], at time 1000 on date 08/22/25. Planned Procedure Time: 1200.? Time changes happen often and if your time is changed the preop area will call you the afternoon before. - You and your visitor will be asked to self-screen and do not enter if you have any COVID symptoms. Please call surgeon if you need to reschedule. - A mask is optional within the hospital at this time. Patients may have clear liquids (water, carbonated beverages, clear teas, apple juice) until 3 hours prior to surgery with a maximum of 20 ounces. - No food from midnight until time of surgery and no smoking, or chewing tobacco (or any form of nicotine). No chewing gum, candy or mints. - Infants may have breast milk until 4 hours before surgery, infant formula 6 hours prior to surgery. - Children will be allowed to drink immediately following surgery.? If applicable, please bring a bottle or sippy cup to assist with drinking. Juice, water, soda, and popsicles are readily available.? For infants on formula, please bring formula the day of surgery.? Pacifiers are allowed. Take only the following medications with a SIP of water on the morning of surgery: N/A DO NOT STOP ANY OF YOUR OTHER PRESCRIPTION MEDICATIONS PRIOR TO SURGERY EXCEPT THE FOLLOWING Hold all vitamins and supplements for 3 days per anesthesiologist. Medications to discontinue per physician PT TO CALL DR DENSON OFFICE ABOUT STOPPING MELOXICAM OR NOT. STOP glucosamine-chondroitin 250-200 mg tablet 3 DAYS PRIOR TO PROCEDURE. Date to take last dose: LAST DOSE OF glucosamine-chondroitin 250-200 mg tablet July. PT FOLLOWING UP WITH DR DENSON OFFICE ABOUT MELOXICAM Please no make-up, nail estonian, hairspray, perfume, deodorant, or body powder the day of surgery.? No jewelry (including any body piercings) or valuables the day of surgery, leave them at home.? Please take a shower or bath the night before, or the morning of, surgery with an antibacterial soap.? Wear comfortable, loose fitting clothing.? Children are encouraged to wear pajamas. - Jewelry must be removed prior to entering the operating room.? Rings and piercings that are not removed may be cut off. - The hospital will not accept responsibility for valuables.? - Please leave all valuables, including medications, at home the day of surgery. If you are going home after surgery, a licensed hire car driver must drive you home.? - NO public transportation without another adult if you receive anesthesia. - We recommend that an adult stay with you for 24 hours following discharge. - We also recommend that you do not drive, make important decision, drink alcoholic beverages, or take any drugs that were not prescribed by your health care provider for at least 24 hours after your discharge time. For Pediatric surgeries, we recommend two adults accompany the child home. Follow any additional instructions given to you from your surgeon. Telephone instructions given to CHRISTOPHER BRASWELL and asked if any additional questions and then verbalized understanding. Patient advised to call surgeon office or pre surgery nurse liaison [phone] if any additional questions.
[2025-08-13 15:06] VITALS: BMI 25.4
--- NOTE | 2025-08-13 15:11 | SUR.PREOP ---
[facility] has started construction of its new state of the art ER which will open Spring 2026. With this, we anticipate parking may be a challenge for some our surgical patients and families. Parking spaces are limited but are available for all Surgical, obstetrics, and ER patients sharing this lot. If you arrive and find you are having a hard time finding a parking space, please note that we understand the challenges, please drive around the hospital and park near Hospital Entrance 1. When you enter this entrance, you can ask a volunteer to direct or take you back to the surgical waiting area to check in. We appreciate everyone?s understanding of these expected challenges while we build for your future. Report to the Outpatient Waiting Room, entrance under the green pavilion located off [address], at time 1000 on date 08/22/25. Planned Procedure Time: 1200.? Time changes happen often and if your time is changed the preop area will call you the afternoon before. - You and your visitor will be asked to self-screen and do not enter if you have any COVID symptoms. Please call surgeon if you need to reschedule. - A mask is optional within the hospital at this time. Patients may have clear liquids (water, carbonated beverages, clear teas, apple juice) until 3 hours prior to surgery with a maximum of 20 ounces. - No food from midnight until time of surgery and no smoking, or chewing tobacco (or any form of nicotine). No chewing gum, candy or mints. - Infants may have breast milk until 4 hours before surgery, infant formula 6 hours prior to surgery. - Children will be allowed to drink immediately following surgery.? If applicable, please bring a bottle or sippy cup to assist with drinking. Juice, water, soda, and popsicles are readily available.? For infants on formula, please bring formula the day of surgery.? Pacifiers are allowed. Take only the following medications with a SIP of water on the morning of surgery: N/A DO NOT STOP ANY OF YOUR OTHER PRESCRIPTION MEDICATIONS PRIOR TO SURGERY EXCEPT THE FOLLOWING Hold all vitamins and supplements for 3 days per anesthesiologist. Medications to discontinue per physician STOP glucosamine-chondroitin 250-200 mg tablet 3 DAYS PRIOR TO PROCEDURE Date to take last dose 08/18/25. PT ALSO TO CALL DR DENSON OFFICE ABOUT MELOXICAM AND IF SHE NEEDS TO STOP IT OR NOT. Please no make-up, nail mongolian, hairspray, perfume, deodorant, or body powder the day of surgery.? No jewelry (including any body piercings) or valuables the day of surgery, leave them at home.? Please take a shower or bath the night before, or the morning of, surgery with an antibacterial soap.? Wear comfortable, loose fitting clothing.? Children are encouraged to wear pajamas. - Jewelry must be removed prior to entering the operating room.? Rings and piercings that are not removed may be cut off. - The hospital will not accept responsibility for valuables.? - Please leave all valuables, including medications, at home the day of surgery. If you are going home after surgery, a licensed tractor sweeper driver must drive you home.? - NO public transportation without another adult if you receive anesthesia. - We recommend that an adult stay with you for 24 hours following discharge. - We also recommend that you do not drive, make important decision, drink alcoholic beverages, or take any drugs that were not prescribed by your health care provider for at least 24 hours after your discharge time. For Pediatric surgeries, we recommend two adults accompany the child home. Follow any additional instructions given to you from your surgeon. Telephone instructions given to CHRISTOPHER BRASWELL and asked if any additional questions and then verbalized understanding. Patient advised to call surgeon office or pre surgery nurse liaison [phone] if any additional questions.
--- NOTE | 2025-08-13 15:17 | SUR.PREOP ---
[facility] has started construction of its new state of the art ER which will open Spring 2026. With this, we anticipate parking may be a challenge for some our surgical patients and families. Parking spaces are limited but are available for all Surgical, obstetrics, and ER patients sharing this lot. If you arrive and find you are having a hard time finding a parking space, please note that we understand the challenges, please drive around the hospital and park near Hospital Entrance 1. When you enter this entrance, you can ask a volunteer to direct or take you back to the surgical waiting area to check in. We appreciate everyone?s understanding of these expected challenges while we build for your future. Report to the Outpatient Waiting Room, entrance under the green pavilion located off [address], at time 1000 on date 08/22/25. Planned Procedure Time: 1200.? Time changes happen often and if your time is changed the preop area will call you the afternoon before. - You and your visitor will be asked to self-screen and do not enter if you have any COVID symptoms. Please call surgeon if you need to reschedule. - A mask is optional within the hospital at this time. Patients may have clear liquids (water, carbonated beverages, clear teas, apple juice) until 3 hours prior to surgery with a maximum of 20 ounces. - No food from midnight until time of surgery and no smoking, or chewing tobacco (or any form of nicotine). No chewing gum, candy or mints. - Infants may have breast milk until 4 hours before surgery, infant formula 6 hours prior to surgery. - Children will be allowed to drink immediately following surgery.? If applicable, please bring a bottle or sippy cup to assist with drinking. Juice, water, soda, and popsicles are readily available.? For infants on formula, please bring formula the day of surgery.? Pacifiers are allowed. Take only the following medications with a SIP of water on the morning of surgery: N/A DO NOT STOP ANY OF YOUR OTHER PRESCRIPTION MEDICATIONS PRIOR TO SURGERY EXCEPT THE FOLLOWING Hold all vitamins and supplements for 3 days per anesthesiologist. Medications to discontinue per physician STOP glucosamine-chondroitin 250-200 mg tablet 3 DAYS PRIOR TO PROCEDURE. Date to take last dose 08/18/25 FOR glucosamine-chondroitin 250-200 mg tablet. PT TO CALL DR DENSON OFFICE ABOUT MELOXICAM, WHEN OR IF SHE NEEDS TO STOP IT. Please no make-up, nail [place] citizen, hairspray, perfume, deodorant, or body powder the day of surgery.? No jewelry (including any body piercings) or valuables the day of surgery, leave them at home.? Please take a shower or bath the night before, or the morning of, surgery with an antibacterial soap.? Wear comfortable, loose fitting clothing.? Children are encouraged to wear pajamas. - Jewelry must be removed prior to entering the operating room.? Rings and piercings that are not removed may be cut off. - The hospital will not accept responsibility for valuables.? - Please leave all valuables, including medications, at home the day of surgery. If you are going home after surgery, a licensed lease purchase driver must drive you home.? - NO public transportation without another adult if you receive anesthesia. - We recommend that an adult stay with you for 24 hours following discharge. - We also recommend that you do not drive, make important decision, drink alcoholic beverages, or take any drugs that were not prescribed by your health care provider for at least 24 hours after your discharge time. For Pediatric surgeries, we recommend two adults accompany the child home. Follow any additional instructions given to you from your surgeon. Telephone instructions given to CHRISTOPHER BRASWELL and asked if any additional questions and then verbalized understanding. Patient advised to call surgeon office or pre surgery nurse liaison [phone] if any additional questions.
--- NOTE | 2025-08-20 12:20 | P.HP_ITS ---
H&P: HPI History of Present Illness Date/Time: 08/20/25 12:20 Chief Complaint: Left elbow and wrist pain Narrative: 55-year-old woman with bilateral elbow and wrist pain with numbness and tingling in the hand. Underwent release of the right elbow and right wrist. Continued symptoms left arm and hand despite treatment efforts including bracing, therapy and injections. Presents for operative treatment. Review of Systems Constitutional: Constitutional: Denies fever(s) Eyes: Eyes: Denies blurry vision ENT: Reports Normal hearing present Cardiovascular: Cardiovascular: Denies chest pain and Denies dyspnea Respiratory: Respiratory: Denies dyspnea and Denies wheezing Gastrointestinal: Gastrointestinal: Denies abdominal pain Genitourinary: Genitourinary: Denies urinary urgency Musculoskeletal: Musculoskeletal: Reports as per HPI and Denies numbness Integumentary/Breasts: Skin/Breast: Denies changing lesions and Denies sores Neurologic: Reports Normal hearing present, Denies behavioral changes, Denies confusion, Denies numbness and Denies convulsions Psychiatric: Psychiatric: Denies behavioral changes, Denies confusion and Denies hallucinations Endocrine: Endocrine: Denies heat intolerance Hematologic/Lymphatic: Hematologic/Lymphatic: Denies easy bleeding Allergic/Immunologic: Allergic/Immunologic: Denies wheezing PMFSH Past Medical History Medical History Carpal tunnel syndrome, left Cubital tunnel syndrome on left Carpal tunnel syndrome of right wrist Cubital tunnel syndrome on right Spondylolysis of lumbar region Lumbar spine pain Lower back pain Skin lesion of back Skin lesion of left arm Bilateral elbow joint pain Pain of both elbows Medial epicondylitis of both elbows Trigger thumb Trigger thumb, left thumb Laceration of right lower leg Left knee sprain Closed fracture of left distal fibula Bilateral otitis media with effusion Family history of liver cancer Liver cyst Lung nodules Bronchitis Positive anti-CCP test Abnormal C-reactive protein Hypocalcemia Hyperglycemia Abnormal EKG Left arm numbness Excessive daytime sleepiness Screening, lipid Screening for malignant neoplasm of breast Skin abnormalities Eustachian tube dysfunction Pain, hand joint Onychomycosis Encounter before starting medication Abnormal MRI, lumbar spine Migraines COVID-19 Discoloration of skin of toe Paresthesia Fatigue Raynauds disease Fever Unspecified disturbances of smell and taste Binge eating disorder Lumbar back pain with radiculopathy affecting left lower extremity Left lateral epicondylitis Nightmare disorder Numbness of right foot Trochanteric bursitis of left hip Surgical History Surgical History Hx of carpal tunnel repair History of ankle surgery Previous section History of colposcopy History of dilatation and curettage History of endometrial ablation History of hysteroscopy H/O: hysterectomy H/O spinal fusion History of tubal ligation History of foot surgery Family History Family History Father Diabetes mellitus Heart disease Liver cancer Mother No problems noted. Sibling Tongue cancer COVID-19 Other Family history of malignant neoplasm Social History Social History Social History: caffeine use Smoking status: Never smoker Second hand tobacco smoke exposure: No Alcohol intake: current Alcohol use details: 4-6 monthly Substance use: former Substance use type: does not use Other substance usage details: gummies Do You Feel Safe in your Home?: Yes Lack of Transportation: No Lack of Food: Never True Current Housing: I Have Housing Concerned About Future Housing: No Difficulty Paying Gas/Electric Bills: No Difficulty Paying for Meds: No Currently Unemployed: No Education: Trade/Vocational Certificate Difficulty w/ Childcare or Family Care: No Living arrangements: alone Occupation/Education: occupation 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 Gender identity (if verbalized by the patient): Female Spiritual care concerns: No Meds Home Medications and Allergies Home Medications ?Medication ?Instructions ?Recorded ?Confirmed ?Type mirabegron 50 mg tablet,extended 50 mg PO HS 03/26/25 08/13/25 History release 24 hr meloxicam 15 mg tablet 15 mg PO DAILY #90 tabs 07/05/2408/13/25 Rx estradiol 2 mg tablet 2 mg PO DAILY #90 tabs 05/2808/13/25 Rx glucosamine-chondroitin 250 mg-200 2 tablet PO DAILY 0 06/13/25 08/13/25 History mg tablet estradiol 0.01% (0.1 mg/gram) 1 g vaginal 2XW #42.5 gr ams 07/24/25 08/13/25 Rx vaginal cream (Estrace) lisdexamfetamine 70 mg capsule 70 mg PO DAILY #30 caps 07/29/25 08/13/25 Rx (Vyvanse) Allergies Allergy/AdvReac Type Severity Reaction Status Date / Time No Known Allergies Allergy Verified 08/13/25 15:00 Exam 2 Const: General: cooperative, healthy appearing, no acute distress, well developed and alert; No confusion Orientation/consciousness: patient oriented x3 and No confusion HENMT: Head: normal to inspection, normocephalic and atraumatic Eyes: Conjunctivae: conjunctivae normal Sclera: sclerae normal Neck: Neck: supple and nontender Chest: Chest palpation & inspection: normal inspection of the chest Resp: Effort & Inspection: normal respiratory effort and no audible wheezes Cardio: Rate: regular rate Rhythm: regular rhythm : General: Yes deferred Skin: General skin exam: no rashes or lesions noted Neuro: General: patient oriented x3 and No confusion Motor exam (neuro): Normal motor muscle tone present throughout Sensory Exam: Sensory deficit (Neuro) (decreased sensation to light touch thumb, index, middle and radial ring shannon) and Upper extremity sensory exam abnormal Deep tendon reflexes (DTR's): Right triceps reflex intensity grade: 2+, Left triceps reflex intensity grade: 2+, Rt Biceps (C5, C6): 2+, Left biceps reflex intensity grade: 2+, Right brachioradialis reflex intensity grade: 2+ and Left brachioradialis reflex intensity grade: 2+ Extrem: General: capillary refill normal Right upper extremity: normal to inspection, full ROM, normal capillary refill, elbow/forearm tenderness of the medial epicondyle, normal ROM and other ( Positive Tinel's cubital tunnel) and wrist normal vascular exam ( ), radial pulse present and normal Yuval's test; Tinel's positive ( positive median nerve compression test. Positive Tinel's) and Phalen's positive Left upper extremity: normal to inspection and wrist normal vascular exam, radial pulse present and normal Yuval's test; Tinel's positive ( positive median nerve compression test. Positive Tinel's) and Phalen's positive Right lower extremity: normal to inspection Left lower extremity: normal to inspection Psych: Affect: normal affect Assessment and Plan Assessment and plan (1) Carpal tunnel syndrome, left: Code(s): G56.02 - Carpal tunnel syndrome, left upper limb Status: Acute (2) Carpal tunnel syndrome of right wrist: Code(s): G56.01 - Carpal tunnel syndrome, right upper limb Status: Acute (3) Cubital tunnel syndrome on right: Code(s): G56.21 - Lesion of ulnar nerve, right upper limb Status: Acute Assessment and Plan: 2 months status post right elbow and wrist nerve release. Incisions well healed. Pain and swelling improved. Continue with activity as tolerated. Plan Discussed nonoperative and operative treatment options with the patient. Risks and benefits of each as well as alternatives were reviewed. All of the patient's questions were answered. The risks of surgery reviewed including but not limited to: Neurovascular damage, wound complication, infection, blood clot, pulmonary embolus, stroke, myocardial infarction, and anesthetic risks up to and including . Continued pain and possible dysfunction were explained. Specific risks of the procedure including later recurrence of deformity. No guarantees were offered. If complications occur, the patient understands the need for further treatment, possible further surgery. Patient verbalizes understanding and wishes to proceed. PLAN: left cubital tunnel release, left carpal tunnel release
[2025-08-22] VITALS (8 sets, daily range): BP systolic 126–147; BP diastolic 71–87; PULSE 62–81; RESP 10–16; TEMP 36.4–36.8; O2SAT 96–100
--- OUTSIDE RECORDS SUMMARY | 2025-08-22 02:35 | XMS_ITS | Data Portability ---
Author Organization [place] [facility], Main Office Address [address] [place] [address] Care Team Providers Care Photoengraving Retoucher Name Role Phone SMITH JOE Primary Care Provider Assessment No assessment recorded. Plan of Treatment Reminders Order Date Submit Date Provider Last Modified By Organization Details Last Modified Time Details Appointments None recorded. Lab None recorded. Referral None recorded. Procedures eustachian tube balloon dilation (PROC) 2023 024 [email or web address] Not available 12:26:37 Surgeries None recorded. Imaging audiogram + tympanogram 2023 024 [email or web address] 42 [facility], [address] [facility], [facility], [place], [address], 5 08:26:49 Medication Orders Ciprodex 0.3 %-0.1 % ear drops,suspe nsion 2023 024 [email or web address] [facility] [place], [address], 4 11:18:52 Patient TargetsNo targets recorded. Patient Instructions Encounter Date Encounter Id Patient Instructions Last Modified By Organization Details Last Modified Time 07/12/2024 [id number] Discussed possible ETBD with tube placement. She wishes to try treatment before being placed on Dr. Brand scheduled for surgical consultation. [email or web address] Not available 07/12/2024 12:04:11 09/19/2024 [id number] Discussed that i t can take up to 6-8 weeks to notice a vast improvement in hearing and ear improvement. She will obtain an audiogram given current hearing loss with hearing aid use. We will follow-up when results become available. [email or web address] Not available 09/19/2024 11:13:28 Reason for Referral None Reported. Problems Name Problem SNOMED Code Status Onset Date Resolution Date Notes Provider Name and Address Organization Details Recorded Time Eustachian tube disorder 68143354 Active 2023 SHERRY Crystal, [facility] 11:58:43 Dysfunction of bilateral eustachian tubes 0329407583033 100 Active 2023 DEEP Whitten [address] [facility], [facility] [address], [place], [address], [facility] 12:03:13 Sensorineur al hearing loss 81691387 Active 2023 SHERRY Crystal, [facility] 11:07:57 Problem Notes None recorded. Procedures Surgical History Date Name Laterality Status Provider Name and Address Organization Details Recorded Time tonsillectomy completed Nikia Lizarraga RN [facility] 07/12/2024 11:46:43 inflation of Eustachian tube using balloon completed Nikia Lizarraga RN [facility] 09/19/2024 08:25:36 myringotomy and insertion of tympanic ventilation tube completed Nikia Lizarraga RN [facility] 09/19/2024 08:25:48 Imaging Results None recorded. Procedure [...] Available No t Available BD Regular Bevel [place] 18 gauge x 1 1/2 USE WITH [...] Address Organization Details Last Updated DateTime 07/12/2024 97776.93 g 24 kg/m2 162.56 cm 97.8 [degF] Nikia Lizarraga RN [facility] 07/12/2024 11:48:07 Date Recorded Body height Body mass index (BMI) Body weight Body temperature Provider Name and Address Organization Details Last Updated DateTime 08/14/2024 162.56 cm 24.6 kg/m2 10079.43 g 97.9 [degF] Nikia Lizarraga RN [facility] 08/14/2024 11:18:46 Date Recorded Body height Body mass index (BMI) Body weight Body temperature Provider Name and Address Organization Details Last Updated DateTime 09/19/2024 162.56 cm 24.1 kg/m2 08667.09 g 97.7 [degF] Nikia Lizarraga RN [facility] 09/19/2024 11:02:40 Social History None recorded. Functional Status Question Answer Note LastModified by Organizat ion Details LastModified Time What is your level of alcohol consumption? Occasional [email or web address] Information not available 07/11/2024 Mental Status None [...] HAVE YOU BEEN HOSPITALIZED OR SEEN IN [facility] IN THE PAST YEAR ? N [...] Diagnosis SNOMED-CT Code Diagnosis ICD10 Code Diagnosis IMO Codes Diagnosis Note [id number] Sergo Brand MD [facility] [place] [address] [place] [address] 07/12/2024 11:27:27 07/12/2024 12:04:47 Dysfunction of bilateral eustachian tubes 8282384689 600774 H69.93 [id number] Sergo Brand MD [facility] [place] [address] [place] [address] 08/14/2024 11:00:58 08/15/2024 16:07:26 Dysfunction of bilateral eustachian tubes 7040707202 949573 H69.93 [id number] Sergo Brand MD [facility] [place] [address] [place] [address] 09/19/2024 10:57:56 09/19/2024 11:13:56 Sensorineural hearing loss 24392035 H90.5 Postoperative visit 1836 39441 Z48.89 09/10/2024 postoperat maricel from a bilateral ETBD with tube placement. Health Concerns Section Related Observation LastModified by Organization Detai ls LastModified Time None Recorded Concern Status LastModified by Organization Details LastModified Time None Recorded Advance Directives Directive None Recorded Payers Insurance Date Sequence Insurance Name Policy Number Policy Mclain Covered Member ID Mclain Member ID Guarantor Name 09/26/2024 1 JESUS (O) [id number] 1 Gualberto Grossman [id number] Oumou Grossman Notes Date Note Type [...] infections over her lifetime. DEEP Whitten [address] [employer], [place], [address], [employer] 07/12/2024 12:04:14 08/14/2024 text/html this patient has bilateral Eustachian tube dysfunction. This has been continuous since April and has been refractory to antibiotics and steroids x2 ear drops. When she was landing she had any pain. She has underlying hearing she does take Radhayrtec Sergo Brand MD [address] [employer], [place], [address], [employer] 08/14/2024 11:33:14 09/19/2024 text/html This patient is [...] will obtain an audiogram. DEEP Whitten [address] [employer], [place], [address], [employer] 09/19/2024 11:13:31 OBGyn Episode No OBEpisode recorded.
--- OUTSIDE RECORDS SUMMARY | 2025-08-22 02:35 | XMS_ITS | Clinical Summary ---
Author Organization [facility] [address] Address [address] [place] [address] Care Team Providers Care Compress Trucker Name Role Phone Mann Tran MD Primary Care Provider + [phone] Allergies Active Allergy Reactions Criticality Noted Date [...] on file Legal Sex Female 4:53 AM PROCESS ENG Gender Identity Not on file Sexual Orientation Not on file Obstetrics History Last Filed Vital Signs Vital Sign Reading Time Taken Comments Blood Pressure 146/89 12/17/2024 10:48 AM PROCESS ENG Pulse 91 12/17/2024 10:48 AM PROCESS ENG Temperature 37.2 C (98.9 F) 10/18/2024 3:39 PM PROCESS ENG Respiratory Rate 18 12/17/2024 10:48 AM PROCESS ENG Oxygen Saturation 99% 10/18/2024 3:39 PM PROCESS ENG Inhaled Oxygen Concentration - - Weight 67.1 kg (148 lb) 12/17/2024 10:48 AM PROCESS ENG Height 162.6 cm (5' 4) 12/17/2024 10:48 AM PROCESS ENG Body Mass Index 25.4 12/17/2024 10:48 AM PROCESS ENG Plan of Treatment Health Maintenance Due Date [...] complete this topic Insurance ANTHEM ACCESS CHOICE [employer] ACCESS CHOICE Care Teams Compress Trucker Relationship Specialty Start Date End Date Mann Tran MD [address] [place] [address] PCP - General Family Medicine 05/20/24
--- OUTSIDE RECORDS SUMMARY | 2025-08-22 02:35 | XMS_ITS | Patient Health Record ---
Author Organization [facility] Address [address] [place] [address] Care Team Providers Care Registered Physical Therapist Name Role Phone Ronal Cota Primary Care Provider Migration, Provider Unavailable Unavailable Jessica May Unavailable [phone] Allergies No Known Allergies Results Component Value Reference Range Flag Notes COMPREHENSIVE METABOLIC PANE L Reviewed date:10/09/2024 09:20:38 AM Interpretation: Performing Lab:, [facility], [facility] [address], [place], [address] [facility] Notes/Report: Not Reported: BUN and Creatinine are [...] U/L N ALT 20 6-29 U/L N VITAMIN D, 25-HYDROXY, LC/MS /MS Reviewed date:10/09/2024 09:20:38 AM Interpretation: Performing Lab:Samreen FANG, [address], [address] Paola Gomes MD Notes/Report: Vitamin D Status 25-OH Vitamin D: Deficiency: <20 ng/mL Insufficiency: 20 - 29 ng/mL Optimal: > or = 30 ng/mL For 25-OH Vitamin D testing on patients on D2-supplementation and patients for whom quantitation of D2 and D3 fractions is required, the QuestAssureD(TM) 25-OH VIT D, (D2,D3), LC/MS/MS is recommended: order code 33356 (patients >2yrs). See Note 1 Note 1 For additional information, please refer to http://education.Magnomatics/faq/TNC870 (This link is being provided for informational/ educational purposes only.) VITAMIN D,25-OH,TOTAL,IA 57 30-100 ng/mL N T3, FREE Reviewed date:10/09/2024 09:20:38 AM Interpretation: Performing Lab:Samreen FANG, [address] [place], [address] Paola Gomes MD Notes/Report: T3, FREE 3.5 2.3-4.2 pg/mL N ESTRADIOL Reviewed date:10/10/2024 08:30:43 AM Interpretation: Performing Lab:[facility], [address], [place], [address] Paola Gomes Notes/Report: Reference Range Follicular Phase: 19-144 Mid-Cycle: 64-357 Luteal Phase: 56-214 Postmenopausal: < or = 31 Reference range established on post-pubertal patient population. No pre-pubertal reference range established using this assay. For any patients for whom low Estradiol levels are anticipated (e.g. males, pre-pubertal children and hypogonadal/post-menopausal females), the Balanced [facility] Estradiol, Ultrasensitive, LCMSMS assay is recommended (order code 70337). Please note: patients being treated with the drug fulvestrant (Faslodex(R)) have demonstrated significant interference in immunoassay methods for estradiol measurement. The cross reactivity could lead to falsely elevated estradiol test results leading to an inappropriate clinical assessment of estrogen status. Balanced order code [id number], Ultrasensitive LC/MS/MS demonstrates negligible cross reactivity with fulvestrant. ESTRADIOL 125 N CBC (INCLUDES DIFF/PLT) Reviewed date:10/09/2024 09:20:38 AM Interpretation: Performing Lab:[facility], [address] [place], [address] [facility] Notes/Report: For adults, a slight decrease in [...] 10.1 7.5-12.5 fL N ABSOLUTE NEUTROPHILS [phone] cells/uL N ABSOLUTE LYMPHOCYTES 6216 960-0090 cells/uL N ABSOLUTE MONOCYTES 650 200-950 cells/uL N ABSOLUTE EOSINOPHILS 73 15-500 cells/uL N ABSOLUTE BASOPHILS 51 0-200 cells/uL N NEUTROPHILS 65.6 N LYMPHOCYTES 23.8 N MONOCYTES 8.9 N EOSINOPHILS 1.0 N BASOPHILS 0.7 N PROGESTERONE Reviewed date:10/10/2024 09:19:14 PM Interpretation: Performing Lab:[facility], [address] [place], [address] [facility] Notes/Report: Reference Ranges Female Follicular Phase < 1.0 Luteal Phase 2.6-21.5 Post menopausal < 0.5 1st Trimester 4.1-34.0 2nd Trimester 24.0-76.0 3rd Trimester 52.0-302.0 PROGESTERONE <0.5 N LIPID PANEL Reviewed date:10/09/2024 09:20:38 AM Interpretation: Performing Lab:[facility], [address] [place], [address] [facility] Notes/Report: Reference range: <100 For patients with [...] Teodoro KAUFMAN et al. MARIA ALEJANDRA. 2013;310(19): 4852-7572 (http://education.Magnomatics/faq/YFU166) CHOLESTEROL, TOTAL 175 <200 mg/dL N HDL CHOLESTEROL 63 > OR = 50 mg/dL N TRIGLYCERIDES 107 <150 mg/dL N LDL-CHOLESTEROL 92 N CHOL/HDLC RATIO 2.8 <5.0 (calc) N NON HDL CHOLESTEROL 112 <130 mg/dL (calc) N T4, FREE Reviewed date:10/09/2024 09:20:38 AM Interpretation: Performing Lab:[facility], [address] [place], [address] [facility] Notes/Report: T4, FREE 1.1 0.8-1.8 ng/dL N TSH Reviewed date:10/09/2024 09:20:38 AM Interpretation: Performing Lab:[facility]IMIT[facility]O [facility], [address] [place], [address] [facility] Notes/Report: Reference Range > or = 20 Years 0.40-4.50 Ranges First trimester 0.26-2.66 Second trimester 0.55-2.73 Third trimester 0.43-2.91 TSH 1.88 N TESTOSTERONE, FREE (DIALYSIS ) AND TOTAL,MS Reviewed date:10/13/2024 10:53:49 AM Interpretation: Performing Lab:[facility], [facility], [address] [facility] [address] [facility] [address], [address], [place], [address] Tonya Maza MD,PhD Notes/Report: (Note) For additional information, please refer to This test was developed and its analytical performance https://Eyetronics.Anacle Systems/faq/HIR019 characteristics have been determined by [employer]. It has (This link is being provided for informational/educational purposes only.) not been cleared or approved by the FDA. This assay has (Note) been validated pursuant to the CLIA regulations and is used for clinical purposes. This test was developed and its analytical performance characteristics have been determined by [employer]. It has MDF not been cleared or approved by the FDA. This assay has [facility] been validated pursuant to the CLIA regulations and is [address] [address],[address] used for clinical purposes. [facility] [id number] Tonya Maza MD, PhD TESTOSTERONE, TOTAL, MS 17 2-45 ng/dL TESTOSTERONE, FREE 0.9 0.1-6.4 pg/mL CYCLIC CITRULLINATED PEPTIDE (CCP) AB (IGG) Reviewed date:11/12/2024 01:35:27 PM Interpretation: Performing Lab:[facility], [address] [place], [address] Paola Gomes MD Notes/Report: Reference Range Negative: <20 Weak Positive: 20-39 Moderate Positive: 40-59 Strong Positive: >59 CYCLIC CITRULLINATED PEPTIDE (CCP) AB (IGG) 21 H RHEUMATOID FACTOR Reviewed date:10/31/2024 09:53:58 AM Interpretation: Performing Lab:[facility]ON[facility]IO [facility], [address] [place], [address] Paola Gomes MD Notes/Report: RHEUMATOID FACTOR <10 <14 IU/mL N Reason For Referral Reason can we please refer patient to a chiropractic doctor, she has lung nodules and shortness of breath, should be an urgent referral to Buck Bell MD at [facility]- their number is [phone] thank you so much URGENT REFERRAL Referral Organization [facility] May Referring Provider First Name Ronal Referring Provider Last Name Cipriano Referred Provider Specialty Pulmonary Di seases General Notes Referring From :Danilo RamosTravismeng; Referral Priority Routine Reason patient had a border line positive CCP antibody can we please make sure she has a copy of this and a copy gets to Dr. Swanson with referral; she has a lot of arthritis and pain, has lung nodules and concerns for rheumatoid arthritis thank you so much Referral Organization [facility] Dr[facility] May Referring Provider First Name Ronal [...] W/U Status Risk Notes Problem Autoimmune thyroiditis (56109295) Autoimmune thyroiditis (E06.3) Active confirmed Problem Vitamin D deficiency (95062554) Vitamin D deficiency, unspecified (E55.9) Active confirmed Problem Polyarthritis (698064789) Polyarthritis, unspecified (M13.0) Active confirmed Problem Menopause (320966968) Menopausal and female climacteric states (N95.1) Active confirmed Vital Signs Heart Rate 77 /min 10/30/2024 SPO2: 99% Blood pressure diastolic 88 mm Hg 10/30/2024 SPO 2: 99% Height 64 in 10/30/2024 SPO2: 99% Blood pressure systolic 141 mm Hg 10/30/2024 SPO2 : 99% Weight 142 lbs 10/30/2024 SPO2: 99% BMI 24.37 kg/m2 10/30/2024 SPO2: 99% Encounters Encounter Location Date Provider Diagnosis [address] [id number] 09/15/2024 Provider Migration Menopausal and female climacteric states N95.[address] [place] [address] 10/30/2024 Jessica May Vitamin D deficiency, unspecified E55.9 ; Menopausal and female climacteric states N95.1 ; Autoimmune thyroiditis E06.3 and Chronic cough R05.[address] May [address] [place] [address] 09/25/[address] May [address] [place] [phone] 10/30/2024 Ronal Cota Chronic cough R05.[address] May [address] [place] [phone] 11/02/[address] May [address] [place] [phone] 11/02/2024 Ronal Cota [facility] [address] [address] 11/27/2024 Ronal Cota Assessments Encounter Date Diagnosis (ICD Code) Assessment Notes Treatment Notes Treatment Clinical Notes Section Notes 10/30/2024 Vitamin D deficiency, unspecified (ICD-10 - E55.9) 10/30/2024 Menopausal and female climacteric states (ICD-10 - N95.1) 10/30/2024 Chronic cough (ICD-10 - R05.3) 10/30/2024 Autoimmune thyroiditis (ICD-10 - E06.3) 09/15/2024 Menopausal and female climacteric states (ICD-10 - N95.1) 10/30/2024 Chronic cough (ICD-10 - R05.3) 10/30/2024 Other Assessment and Plan: 1. Joint pain and suspected rheumatoid arthritis- Order CCP antibody test and rheumatoid panel- Refer to nursing program manager (Dr. Swanson at [facility])- Continue meloxicam for pain management 2. [...] patient to schedule mammogram when available in [place] 8. Pharmacy and insurance- Send testosterone prescription to the patient's regular pharmacy- Assist patient in finding a CT scan facility with availability (e.g., [facility]) Spent 25 minutes preparing to see the patient (ex review of tests/chart), obtaining and / or reviewing separately obtained history, performing a medically appropriate examination and/or evaluation, counseling and educating the patient/family/car egiver, ordering medications, tests, or procedures, referring and communicating with other health care attendant, documenting clinical information in the electronic or other health record, independently interpreting results and communicating results to the patient/family/car egiver and care coordinating patient plan. Patient alert [...] Coverage Start Date Coverage End Date Brijesh [facility] [address] [place] [address] [id number] Oumou Arias i Self - patient is [...]
--- OUTSIDE RECORDS SUMMARY | 2025-08-22 02:35 | XMS_ITS | Clinical Summary ---
Author Organization [facility] Address [address] [place] [address] Care Team Providers Care Financial Economist Name Role Phone Jessica May MD Primary Care Provider [phone] Allergies No known active allergies Medications lisdexamfetamin [...] on file Legal Sex Female 2:00 PM PICK UP OPERATOR Gender Identity Not on file Sexual Orientation Not on file Last Filed Vital Signs Vital Sign Reading Time Taken Comments Blood Pressure 136/88 11/14/2024 2:13 PM PICK UP OPERATOR Pulse 87 11/14/2024 2:13 PM PICK UP OPERATOR Temperature 37.1 C (98.7 F) 11/14/2024 2:13 PM PICK UP OPERATOR Respiratory Rate 18 11/14/2024 2:13 PM PICK UP OPERATOR Oxygen Saturation 97% 11/14/2024 2:13 PM PICK UP OPERATOR RA Inhaled Oxygen Concentration - - Weight 65.3 kg (144 lb) 11/14/2024 2:13 PM PICK UP OPERATOR Height 162.6 cm (5' 4) 11/14/2024 2:13 PM PICK UP OPERATOR Body Mass Index 24.72 11/14/2024 2:13 PM PICK UP OPERATOR Plan of Treatment Health Maintenance Due Date [...] Vaccines (1 of 2) 2019 PHQ-2 (Physician [place]) 10/31/2024 COVID-19 Vaccine (4 - 2024-2 6 season) 2025 12/01/2021, 02/24/2021, 02/03/2021 Influenza Adult (#1) 2025 08/16/2015 Hepatitis A Vaccines Aged Out No long er eligible based on patient's age to complete this topic Meningococcal B Vaccine Aged Out No l onger eligible based on patient's age to complete this topic Meningococcal Vaccine Aged Out No nicole kathia eligible based on patient's age to complete this topic RSV Immunizations Under 20 Months Aged Out No longer eligible b ased on patient's age to complete this topic Insurance [facility] Care Teams Financial Economist Relationship Specialty Start Date End Date Jessica May MD [facility] [place] [id number] PCP - General Internal Medicine-Endocrinology, Diabetes & Metabolism 11/06/24
--- OUTSIDE RECORDS SUMMARY | 2025-08-22 02:35 | XMS_ITS | Patient Health Record ---
Author Organization [facility] Address [address] [address] Care Team Providers Care Photofinishing Laboratory Worker Name Role Phone Isac Cota Primary Care Provider Jessica May Unavailable [phone] Migration, Provider Unavailable Unavailable Allergies No Known Allergies Results Component Value Reference Range Notes COMPREHENSIVE METABOLIC PANE L Reviewed date:10/09/2024 09:20:38 AM Interpretation: Performing Lab:[facility], [address] [place], [address] Paola Gomes Notes/Report: VITAMIN D, 25-HYDROXY, LC/MS /MS Reviewed date:10/09/2024 09:20:38 AM Interpretation: Performing Lab:Samreen [facility], [address] [place], [address] Paola Gomes MD Notes/Report: T3, FREE Reviewed date:10/09/2024 09:20:38 AM Interpretation: Performing Lab:Samreen [facility]ANG[place], [address] [place], [address] Paola Gomes MD Notes/Report: ESTRADIOL Reviewed date:10/10/2024 08:30:43 AM Interpretation: Performing Lab:Samreen [facility], [address] [place], [address] Paola Gomes Notes/Report: CBC (INCLUDES DIFF/PLT) Reviewed date:10/09/2024 09:20:38 AM Interpretation: Performing Lab:Samreen [facility], [address] [place], [address] Paola Gomes Notes/Report: PROGESTERONE Reviewed date:10/10/2024 09:19:14 PM Interpretation: Performing Lab:[facility], [facility], [address] [place], [address] [facility] Notes/Report: LIPID PANEL Reviewed date:10/09/2024 09:20:38 AM Interpretation: Performing Lab:[facility]IT[facility], [facility], [address] [place], [address] [facility] Notes/Report: T4, FREE Reviewed date:10/09/2024 09:20:38 AM Interpretation: Performing Lab:[facility], [facility], [address] [place], [address] [facility] Notes/Report: TSH Reviewed date:10/09/2024 09:20:38 AM Interpretation: Performing Lab:[facility]IT[facility], [facility], [address] [place], [address] [facility] Notes/Report: TESTOSTERONE, FREE (DIALYSIS ) AND TOTAL,MS Reviewed date:10/13/2024 10:53:49 AM Interpretation: Performing Lab:Z[facility], [facility], [facility] [address], [address], [place], [address] Tonya Maza MD,PhD Notes/Report: TESTOSTERONE, TOTAL, MS 17 2-45 ng/dL For additional information, please refer to https://education.Music Nation.com/faq/HXN964 (This link is being provided for informational/educational purposes only.) (Note) This test was developed and its analytical performance characteristics have been determined by [employer]. It has not been cleared or approved by the FDA. This assay has been validated pursuant to the CLIA regulations and is used for clinical purposes. TESTOSTERONE, FREE 0.9 0.1-6.4 pg/mL (Note) This test was developed and its analytical performance characteristics have been determined by [employer]. It has not been cleared or approved by the FDA. This assay has been validated pursuant to the CLIA regulations and is used for clinical purposes. [facility] [address] [facility] [address] [facility] [address] Tonya Maza MD, PhD CYCLIC CITRULLINATED PEPTIDE (CCP) AB (IGG) Reviewed date:11/12/2024 01:35:27 PM Interpretation: Performing Lab:LEON[facility]IO [facility], [address] [place], [address] Paola Gomes MD Notes/Report: RHEUMATOID FACTOR Reviewed date:10/31/2024 09:53:58 AM Interpretation: Performing Lab:LEONCIO [facility], [address] [place], [address] Paola Gomes MD Notes/Report: Reason For Referral Reason can we please refer patient to a analytics director, she has lung nodules and shortness of breath, should be an urgent referral to Buck Bell MD at [facility]- their number is [phone] thank you so much URGENT REFERRAL Referral Organization [facility] Referring Provider Last Name Cipriano Referred Provider Specialty Pulmonary Di seases Referral Priority Routine Reason patient had a border line positive CCP antibody can we please make sure she has a copy of this and a copy gets to Dr. Swanson with referral; she has a lot of arthritis and pain, has lung nodules and concerns for rheumatoid arthritis thank you so much Referral Organization [employer] Referring Provider First Name Isac Referring Provider Last Name Cipriano Referred Provider Specialty Rheumatology Referral Priority Routine Medications Medication SIG (Take, Route, Frequency, Duration) Notes Start Date End Date Status Testosterone Enanthate 200 MG/ML inject 20 mg subcutaneously weekly; Duration: 90 days 11/20/2024 Active Meloxicam 15 MG 1 tab(s) orally once a day Active Estradiol 2 MG 1 tab(s) orally once a day Active Vyvanse 70 MG 1 cap(s) orally once a day (in the morning) Active Problems Problem Type SNOMED Code ICD Code Onset Dates Problem Status W/U Status Risk Notes Problem Vitamin D deficiency (20255968) Vitamin D deficiency, unspecified (E55.9) Active confirmed Problem Autoimmune thyroiditis (96341390) Autoimmune thyroiditis (E06.3) Active confirmed Problem Polyarthritis (068120574) Polyarthritis, unspecified (M13.0) Active confirmed Problem Menopause (686500977) Menopausal and female climacteric states (N95.1) Active confirmed Vital Signs Heart Rate 77 /min 10/30/2024 SPO2: 99% Blood pressure diastolic 88 mm Hg 10/30/2024 SPO 2: 99% Height 64 in 10/30/2024 SPO2: 99% Blood pressure systolic 141 mm Hg 10/30/2024 SPO2 : 99% Weight 142 lbs 10/30/2024 SPO2: 99% BMI 24.37 kg/m2 10/30/2024 SPO2: 99% Encounters Encounter Location Date Provider Diagnosis [facility], [employer] [facility] [address] [place] [address] 10/30/2024 Jessica May Menopausal and female climacteric states N95.1 ; Vitamin D deficiency, unspecified E55.9 ; Autoimmune thyroiditis E06.3 and Chronic cough R05.[address] [address] 09/15/2024 Provider Migration Menopausal and female climacteric states N95.1 [facility], [facility] - [facility] [address] [place] [address] 09/25/2024 Jessica [facility], [facility] - [facility] [address] [place] [address] 10/30/2024 Isac Cota Chronic cough R05.3 [facility], [facility] [address] [place] [address] 11/02/2024 Isac Cota [facility], [facility] [address] [place] [address] 11/02/2024 Isac Cota [facility] [address] [place] [address] 11/27/2024 Isac Cota Assessments Encounter Date Diagnosis (ICD Code) Assessment Notes Treatment Notes Treatment Clinical Notes Section Notes 10/30/2024 Vitamin D deficiency, unspecified (ICD-10 - E55.9) 10/30/2024 Menopausal and female climacteric states (ICD-10 - N95.1) 10/30/2024 Chronic cough (ICD-10 - R05.3) 10/30/2024 Autoimmune thyroiditis (ICD-10 - E06.3) 10/30/2024 Chronic cough (ICD-10 - R05.3) 09/15/2024 Menopausal and female climacteric states (ICD-10 - N95.1) 10/30/2024 Other Assessment and Plan: 1. Joint pain and suspected rheumatoid arthritis- Order CCP antibody test and rheumatoid panel- Refer to armature balancer (Dr. Swanson at [facility])- Continue meloxicam for pain management 2. Testosterone [...] patient to schedule mammogram when available in [place] 8. Pharmacy and insurance- Send testosterone prescription to the patient's regular pharmacy- Assist patient in finding a CT scan facility with availability (e.g., [facility]) Spent 25 minutes preparing to see the patient (ex review of tests/chart), obtaining and / or reviewing separately obtained history, performing a medically appropriate examination and/or evaluation, counseling and educating the patient/family/car egiver, ordering medications, tests, or procedures, referring and communicating with other health landcare facilitator, documenting clinical information in the electronic or [...] Insured Coverage Start Date Coverage End Date [place] [employer] [address] [place] [address] [id number] Oumou Arias i Self - patient is [...]
--- OUTSIDE RECORDS SUMMARY | 2025-08-22 02:35 | XMS_ITS | Clinical Summary ---
Author Organization [facility] Address [address] [place] [address] Care Team Providers Care Manager Safe Name Role Phone Mann Tran MD Primary Care Provider [phone] Source Comments [facility],non-owned Affiliates and Associated Physician Practices is amultiple site organization consisting of ambulatory clinics and hospital sitesin [place], [place] and [place]. This disclosure is being madepursuant to the Care Everywhere program and may not contain all information available regarding this patient. Last updated 18.[facility] Allergies No known active allergies Medications * Be aware that medications may not be up to date on this document. Alwaysverify current medications with the patient. estradiol (Estrace) 2 MG tablet Take 1 (one) tablet by mouth once daily 09/16/2023 Active lisdexamfetamin e (Vyvanse) 70 MG capsule Take 1 (one) capsule by mouth once daily 03/09/2024 Active meloxicam (Mobic) 15 MG tablet Take 1 (one) tablet by mouth once daily 02/17/2024 Active cyclobenzaprine (Flexeril) 10 MG tablet TAKE 1 TABLET BY MOUTH AT BEDTIME NEEDED FOR MUSCLE SPASM 03/12/2024 Active cetirizine-pseu doephedrine 12hr (ZyrTEC-D) 5-120 MG tablet Acti ve mirabegron ER 24hr (Myrbetriq) 50 MG tablet 03/01/2025 Active Active Problems Problem Noted Date Diagnosed [...] Orders Only [facility] [address] [place] [phone] Dory Gonzalez, ROAD MONKEY-PRENATAL TEACHER Gait instability ; Numbness and tingling; Acute bilateral low back pain without sciatica; Neck pain 06/12/2025 9:30 AM CDT Office Visit [facility] [address] [place] [phone] Bryan Staley MD Gait instability (Primary Dx); Numbness and tingling 06/12/2025 9:01 AM CDT - 06/12/2025 11:59 PM CDT Hospital Encounter [facility] [address] [place] [address] Bryan Staley MD Discharge Disposition: Home or Self Care 06/12/2025 Travel 05/28/2025 Travel 05/28/2025 Telephone [facility] - Centralized Scheduling [address] [place] [address] Bryan Staley MD Appointment 05/28/2025 Orders Only [facility] [address] [place] [phone] Bryan Staley MD Neck pain from Last 3 Months Family History Medical [...] Recorded Patient Health Questionnaire-2 Score 0 11/29/2024 [facility] - Occupational [...] place to sleep or slept in a alf (including now)? No 11/18/2023 Comments No Sex and Gender Information Value Date Recorded Sex Assigned at Female 03/08/2022 11:43 PM CDT Legal Sex Female 6:11 AM ETHICS OFFICER Gender Identity Female 03/08/2022 11:43 PM [...] series) 02/08/1988 PNEUMOCOCCAL VACCINE 50+ (1 of 2 - PCV) 02/08/1988 ZOSTER VACCINE (1 of 2) 2019 COVID-19 VACCINE ( - season) 2025 12/01/2021, 02/24/2021, 02/03/2021 INFLUENZA [...] this topic Medical Devices Implanted Type Area Studio Set Up Worker Device Identifier Shelf Expiration Date Model / Serial / Lot Stimulan Rapid Cure Implanted:Qty: 1 on 06/07/2022 by Bryan Staley MD at [facility] N/A: Spine Lumbar Biocompstes 02/27/2025 620-005 / / [id number] Description:mixed with 500mg vancomycin powder Screw Set Spne [place] 5500 Ser Implanted:Qty: 4 on 06/07/2022 by Bryan Staley MD at [facility] N/A: Spine Lumbar [employer] [id number] / / 7.5 X 35mm [place] Screw Implanted:Qty: 2 on 06/07/2022 by Bryan Staley MD at [facility] N/A: Spine Lumbar [employer] [id number] / / 7.5 X 45mm [place] Screw Implanted:Qty: 2 on 06/07/2022 by Bryan Staley MD at [facility] N/A: Spine Lumbar [employer] [id number] / / F3d Straight 13mm Implanted:Qty: 2 on 06/07/2022 by Bryan Staley MD at [facility] N/A: Spine Lumbar Core [employer] 06/10/2026 [id number] / / [id number] Kore Fiber Strip 2.5cm X 5cm Implanted:Qty: 1 on 06/07/2022 by Bryan Staley MD at [facility] N/A: Spine Lumbar 10/22/2023 [id number] / [id number] / Korefiber Strip 2.5cm X 5cm Implanted:Qty: 1 on 06/07/2022 by Bryan Staley MD at [facility] N/A: Spine Lumbar 10/22/2023 [id number] / [id number] / 40mm [place] Cocr Implanted:Qty: 2 on 06/07/2022 by Bryan Staley MD at [facility] N/A: Spine Lumbar [employer] [id number] / / Screw 3.5mm 18mm Biased Ang Spne Implanted:Qty: 4 on 11/18/2023 by Bryan Staley MD at [facility] N/A: Spine Cervical [employer] [id number] / / Description:vendor tray Screw 3.5mm 20mm Biased Ang Spne Implanted:Qty: 2 on 11/18/2023 by Bryan Staley MD at [facility] N/A: Spine Cervical Core [employer] [id number] / / Description:vendor tray Screw Set Spnl 3500 Ser Implanted:Qty: 8 on 11/18/2023 by Bryan Staley MD at [facility] N/A: Spine Cervical [employer] [id number] / / Description:vendor tray Kore Fiber Strip 2.9lmn5xw Implanted:Qty: 1 on 11/18/2023 by Bryan Staley MD at [facility] N/A: Spine Cervical Musculoskeletal Transplant Foundati 08/12/2025 [id number] / [id number] / 40 Mm [place] Implanted:Qty: 2 on 11/18/2023 by Bryan Staley MD at [facility] N/A: Spine Cervical [employer] [id number] / / Description:vendor tray 80 Mm [place] Implanted:Qty: 1 on 11/18/2023 by Bryan Staley MD at [facility] N/A: Spine Cervical [id number] / / Description:vendor tray Screw 3.5mm 16mm Biased Ang Spne Implanted:Qty: 2 on 11/18/2023 by Bryan Staley MD at [facility] N/A: Spine Cervical Core Link [facility] [id number] / / Description:vendor tray Procedures Procedure Name Priority Date/Time Associated Diagnosis Comments XR CERVICAL SPINE 4 OR 5VW Routine 06/12/2025 9:12 AM CDT Neck pain COMPREHENSIVE METABOLIC PANEL JESSICA 11/18/2023 4:33 PM ETHICS OFFICER from Last 3 Months or Most Recently [...] DIAGNOSTIC IMAGING ORDERABLE S Final Result * (ABNORMAL) COMPREHENSIVE METABOLIC PANEL (11/18/2023 4:33 PM ETHICS OFFICER) Glucose 127(H) 70 - 105 mg/dL 11/18/2023 5:03 PM ETHICS OFFICER [facility] Sodium 136 136 - 145 mmol/L 11/18/2023 5:03 PM ETHICS OFFICER [facility] Potassium 3.8 3.5 - 5.1 mmol/L 11/18/2023 5:03 PM ETHICS OFFICER [facility] Chloride 106 98 - 107 mmol/L 11/18/2023 5:03 PM ETHICS OFFICER [facility] CO2 23 22 - 29 mmol/L 11/18/2023 5:03 PM ETHICS OFFICER [facility] Calcium 7.9(L) 8.4 - 10.4 mg/dL 11/18/2023 5:03 PM ETHICS OFFICER [facility] Anion Gap 7 6 - 16 mmol/L 11/18/2023 5:03 PM ETHICS OFFICER [facility] BUN 13 7 - 26 mg/dL 11/18/2023 5:03 PM ETHICS OFFICER [facility] Creatinine 0.67 0.57 - 1.11 mg/dL 11/18/2023 5:03 PM ETHICS OFFICER [facility] Alkaline Phosphatase 71 40 - 150 U/L 11/18/2023 5:03 PM ETHICS OFFICER [facility] ALT 16 0 - 55 U/L 11/18/2023 5:03 PM ETHICS OFFICER [facility] AST 21 5 - 34 U/L 11/18/2023 5:03 PM ETHICS OFFICER [facility] Protein Total 6.0(L) 6.4 - 8.3 gm/dL 11/18/2023 5:03 PM ETHICS OFFICER [facility] Albumin 3.4 3.4 - 5.0 gm/dL 11/18/2023 5:03 PM ETHICS OFFICER [facility] Bilirubin Total 0.4 0.2 - 1.2 mg/dL 11/18/2023 5:03 PM ETHICS OFFICER [facility] eGFR by CKD-EPI >90 >=90 mL/min/1.7 3 m2 11/18/2023 5:03 PM ETHICS OFFICER [facility] Blood BLOOD SPECIMEN / Unknown Lab Venipuncture / Unknown 11/18/2023 4:33 PM ETHICS OFFICER 11/18/2023 4:41 PM ETHICS OFFICER us [address]y [address] MONKEY-PRENATAL TEACHER LAB - CHEMISTRY ORDE MARY BETH Final Result [facility] [address] [place] [address] from Last 3 Months or Most Recently Relevant to Health [place] [address] [place] [address] Advance Directives * Full Code (Latest Code Status on File) Date Activated Date Inactivated Comments 11/18/2023 3:48 PM 11/22/2023 2:57 PM * Full Code Date Activated Date Inactivated Comments 06/07/2022 12:09 PM 06/10/2022 1:25 PM * Full Code Date Activated Date Inactivated Comments 06/07/2022 12:09 PM 06/07/2022 12:09 PM Care Teams Manager Safe Relationship Specialty Start Date End Date Mann Tran MD [address] [place] [address] PCP - General 10/22/21
--- OUTSIDE RECORDS SUMMARY | 2025-08-22 02:36 | XMS_ITS | Patient Health Record ---
Author Organization [facility] Address [address] [place] [address] Care Team Providers Care Forest Supervisor Name Role Phone Mann Griffith Primary Care [...] bursitis, right hip (M70.61) 0 Active confirmed 1313800 Problem Trochanteric bursitis, left hip (M70.62) 0 Active confirmed [id number] PLAN OF TREATMENT No Information Insurance Providers Payer Name Payer Address Payer Phone Subscriber Number Group Number Insured Name Patient Relationship to Insured Coverage Start Date Coverage End Date [facility] [address] [address] [place] [address] [id number] Gualberto Arias i Spouse - patient is the spouse of the insured MEDICAL (GENERAL) HISTORY Medical History History ICD Code skin cancer Surgical History Surgery Date(Month/Year) hysterectomy thumb surgery foot surgery
--- OUTSIDE RECORDS SUMMARY | 2025-08-22 02:36 | XMS_ITS | Encounter Summary ---
Author Organization [facility] Address [address] [place] [address] Care Team Providers Care Acrylic Fabricator Name Role Phone Mann Tran MD Primary Care Provider [phone] Encounter Details Date Type Department Care Team (Late st Contact Info) Description 05/15/2025 Lab Requisition [facility] - DermPath Lab [address] [place] [phone] Mann Tran MD [address] [place] [address] Social History Tobacco Use Types [...] place to sleep or slept in a halfway (including now)? No 11/18/2023 Comments No Sex and Gender Information Value Date Recorded Sex Assigned at Female 03/08/2022 11:43 PM CDT Legal Sex Female 6:11 AM WRINGER OPERATOR Gender Identity Female 03/08/2022 11:43 PM CDT Sexual Orientation Straight 03/08/2022 11 :43 PM CDT documented as of this encounter Functional Status * Is person deaf or have serious hearing difficulty? Answer Date of Assessment Author No 11/18/2023 3:53 PM WRINGER OPERATOR Gege Quiroz RN * Is person blind or have serious difficulty seeing? Answer Date of Assessment Author No 11/18/2023 3:53 PM WRINGER OPERATOR Gege Quiroz RN * Does person have [...] AM CDT) Case Report Dermatopathology Report Case: [id number] Authorizing Provider: Mann Tarn MD Collected: 05/14/2025 12:00 AM Ordering Location: [facility] - Received: 05/15/2025 07:18 AM [...] characteristic determined by the Dermatopathology Laboratory at [facility], directed by Dr. Ashley Hernandez. These tests need not be, and therefore are not, approved by the [place] Food and Drug Administration. The tests are used for clinical purposes. Billing Codes Specimen Charges Stain Charges 50336 02697 1 1 93964 78774 45298 1 1 1 3:07 PM CDT DERMATOPATHOLOGY LABORATORY Embedded Images 3:07 PM CDT DERMATOPATHOLOGY LABORATORY Pathology/Cytology TISSUE SPECIMEN FROM SKIN / Unknown 05/14/2025 05/15/2025 7:18 AM CDT Miscellaneous samples (specimen) TISSUE SPECIMEN FROM SKIN / Unknown 05/14/2025 05/15/2025 7:18 AM CDT us Mann F Schueler MD LAB - PATHOLOGY/CYTOLOGY [place] [place] Final Result DERMATOPATHOLOGY LABORATORY [facility] - Department of Dermatology [address] [phone] documented in this encounter Visit Diagnoses Not on filedocumented in this encounter Care Teams Acrylic Fabricator Relationship Specialty Start Date End Date Mann Tran MD [address] [place] [address] PCP - General 10/22/21 documented as of this encounter
--- NOTE | 2025-08-22 10:24 | WPDHPUPDATE1 ---
History and Physical Update Update Date/Time: 08/22/25 10:24 History and Physical has been reviewed, including an updated exam of the patient. There are NO changes in the patient's condition. Risks, benefits, and alternatives have been discussed and questions answered. Patient agrees to proceed with procedure.
[2025-08-22] MEDS: ACETAMINOPHEN 500 MG TABLET 1000 MG PO (10:45)
[2025-08-22] MEDS: KETOROLAC 15 MG/ML VIAL (*BKC) IV PUSH (10:45)
[2025-08-22] MEDS: LACTATED RINGERS 1,000 ML 30 ML IV CONT (10:45)
--- NOTE | 2025-08-22 11:34 | WPDHPUPDATE1 ---
History and Physical Update Update Date/Time: 08/22/25 11:34 History and Physical has been reviewed, including an updated exam of the patient. History, exam and nerve study consistent with left cubital tunnel and carpal tunnel syndromes. Right trigger thumb deformity. Risks, benefits, and alternatives have been discussed and questions answered. Patient agrees to proceed with procedure. Plan: Left cubital tunnel and carpal tunnel release. Right trigger thumb injection of tendon with cortisone.
--- NOTE | 2025-08-22 11:36 | P.PNAN_ITS ---
Anes - Initial Pre Proc Eval Procedure: Operation Date: 08/22/25 12:00 Proposed Procedures p Left Carpal and Cubital Tunnel Release - Ayad Fonseca MD Date/Time: 08/22/25 11:36 Surgeon: Ayad Fonseca MD Pre Op Diagnosis: Lt Carpal & Cubital Tunnel Syn Patient Data Age: 55 Gender: F Height: 1.61 m Weight: 67.7 kg Last Vital Signs Temp 36.8 C 08/22/25 10:45 Pulse 78 08/22/25 10:45 Resp 16 08/22/25 10:45 BP 146/87 H 08/22/25 10:45 Pulse Ox 100 08/22/25 10:45 O2 Del Method Room Air 08/22/25 10:45 Allergies Allergy/AdvReac Type Severity Reaction Status Date / Time No Known Allergies Allergy Verified 08/22/25 10:57 Home Medications ?Medication ?Instructions ?Recorded ?Confirmed ?Type mirabegron 50 mg tablet,extended 50 mg PO HS 03/26/25 08/13/25 History release 24 hr meloxicam 15 mg tablet 15 mg PO DAILY #90 tabs 07/05/2408/13/25 Rx estradiol 2 mg tablet 2 mg PO DAILY #90 tabs 05/2808/13/25 Rx glucosamine-chondroitin 250 mg-200 2 tablet PO DAILY 0 06/13/25 08/13/25 History mg tablet estradiol 0.01% (0.1 mg/gram) 1 g vaginal 2XW #42.5 gr ams 07/24/25 08/13/25 Rx vaginal cream (Estrace) lisdexamfetamine 70 mg capsule 70 mg PO DAILY #30 caps 07/29/25 08/13/25 Rx (Vyvanse) Patient hx anesthesia problems: none Family hx anesthesia problems: none Results Review: All pre-operative results and documents have been reviewed as part of the pre- operative evaluation. [facility] Past Medical History Medical History Carpal tunnel syndrome, left Cubital tunnel syndrome on left Carpal tunnel syndrome of right wrist Cubital tunnel syndrome on right Spondylolysis of lumbar region Lumbar spine pain Lower back pain Skin lesion of back Skin lesion of left arm Bilateral elbow joint pain Pain of both elbows Medial epicondylitis of both elbows Trigger thumb Trigger thumb, left thumb Laceration of right lower leg Left knee sprain Closed fracture of left distal fibula Bilateral otitis media with effusion Family history of liver cancer Liver cyst Lung nodules Bronchitis Positive anti-CCP test Abnormal C-reactive protein Hypocalcemia Hyperglycemia Abnormal EKG Left arm numbness Excessive daytime sleepiness Screening, lipid Screening for malignant neoplasm of breast Skin abnormalities Eustachian tube dysfunction Pain, hand joint Onychomycosis Encounter before starting medication Abnormal MRI, lumbar spine Migraines COVID-19 Discoloration of skin of toe Paresthesia Fatigue Raynauds disease Fever Unspecified disturbances of smell and taste Binge eating disorder Lumbar back pain with radiculopathy affecting left lower extremity Left lateral epicondylitis Nightmare disorder Numbness of right foot Trochanteric bursitis of left hip Surgical History Surgical History Hx of carpal tunnel repair History of ankle surgery Previous section History of colposcopy History of dilatation and curettage History of endometrial ablation History of hysteroscopy H/O: hysterectomy H/O spinal fusion History of tubal ligation History of foot surgery Family History Family History Father Diabetes mellitus Heart disease Liver cancer Mother No problems noted. Sibling Tongue cancer COVID-19 Other Family history of malignant neoplasm Social History Social History Social History: caffeine use Smoking status: Never smoker Second hand tobacco smoke exposure: No Alcohol intake: current Alcohol use details: 4-6 monthly Substance use: former Substance use type: does not use Other substance usage details: gummies Do You Feel Safe in your Home?: Yes Lack of Transportation: No Lack of Food: Never True Current Housing: I Have Housing Concerned About Future Housing: No Difficulty Paying Gas/Electric Bills: No Difficulty Paying for Meds: No Currently Unemployed: No Education: Trade/Vocational Certificate Difficulty w/ Childcare or Family Care: No Living arrangements: with family Occupation/Education: occupation 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 Informed Consent: The patient's anesthetic plan and its attendant risks and benefits were discussed with the patient/family/POA. Questions were solicited and answers prov ided to the satisfaction of the patient/family/POA.
[2025-08-22] MEDS: ceFAZolin 2 GM in SODIUM CHLORIDE 0.9% IV 50 ML 100 ML IVPB (11:49)
[2025-08-22] MEDS: BUPIVACAINE/EPINEPHRINE 0.5% 50 ML VIAL 20 ML INFILTRATE (12:23)
[2025-08-22] MEDS: methylPREDNISolone ACETATE 40 MG/ML VIAL IM (12:23)
--- NOTE | 2025-08-22 13:12 | P.OP_ITS ---
Procedure Note - Detailed Date of Procedure 08/22/25 Pre-op Diagnosis Lt Carpal & Cubital Tunnel Syndrome, right trigger thumb Post-op Diagnosis Same Procedure Performed Left carpal tunnel release, left cubital tunnel release, right trigger thumb cortisone injection A1 layne and flexor tendon Surgeon Ayad Fonseca MD Manager Application Development 1st personalized living assistant Anesthesia General Indications 55-year-old woman with bilateral carpal and cubital tunnel and right trigger thumb. Status post release of the right arm. Presents now for release of the left and injection of the right thumb. Findings Thickened fascia involving the ulnar nerve cubital tunnel with displacement of the ulnar nerve out of the cubital tunnel anteriorly. Thickened carpal retinaculum. Description of Procedure After informed consent was given, the operative extremity was marked in the preoperative holding area. Intravenous antibiotics were given. The patient was taken to the operating room and underwent general anesthetic by the anesthesia team. A time-out was performed confirming patient, procedure, and operative site. Local infiltrate at the carpal tunnel and cubital tunnel was done with 0.5% marcaine. Prepping and draping was done using chloraprep skin solution with usual surgical sterile technique. Anatomic landmarks marked on skin. Hand was exsanguinated and arm tourniquet inflated to 250mmHg. Left elbow was addressed 1st. Incision with a 15 blade knife made over the cubital tunnel just posterior to the medial epicondyle. Hemostasis controlled with bipolar cautery. Dissection carried down to the fascia overlying the cubital tunnel. ulnar nerve was identified proximally and released from proximal to distal under direct visualization dividing the fascia overlying the nerve. The nerve was noted to be subluxed anteriorly. Careful dissection was done to free the nerve up from the surrounding fascia. Dissection carried distally to the flexor muscle tissue ensuring good release. Elbow then taken through range of motion and the nerve was noted to be stable in the ulnar groove. Wound thoroughly irrigated and subcutaneous tissue repaired with 3 0 Monocryl interrupted suture and skin repaired with 4 O nylon running suture. Left wrist was then addressed. Incision was made with #15 blade knife in skin crease on volar palm. Hemostasis was achieved with electrocautery. Careful dissection was carried down to the transverse carpal ligament. Retractors were placed. Ligament overlying median nerve was incised in line with skin incision using venetie blade. Proximal and distal release was done with metzenbaum scissors under direct visualization. Mosquito clamp was placed deep to ligament to protect nerve during release. The nerve was inspected and noted to be intact with mild flattening. Tendons had good excursion. The tourniquet was then released and pressure held. Bleeding points were coagulated with bipolar cautery. The wound was thoroughly irrigated with antibiotic solution. The skin was closed with 4-0 nylon interrupted suture. A sterile dressing was applied. Good capillary refill in the fingers and thumb was noted. Right thumb A1 layne at the flexor crease was then prepped with alcohol prep solution. 25 gauge needle used to inject 80 mg Depo-Medrol and 2 cc of Marcaine 0.5% into the A1 layne and flexor tendon area. Sterile dressing applied. The patient was transported to the recovery room in stable condition. All sponge, needle, instrument counts were correct at the end of the case. Implants None Estimated Blood Loss 5 Tourniquet Time Total Tourniquet Time: 35 Drains No Packing No Pathology None sent Complications None Condition Stable Disposition PACU [facility] Billing Surgery - Charge Forward: Surgery Billing ([id number], [id number], [id number])
[2025-08-22] MEDS: oxyCODONE HCL (*CRX) 5 MG TAB IR PO (14:35)
== END 2025-08-22 15:00 | disposition home or self-care (01) ==
PROVIDERS: PCP Family Medicine; Visit Provider Orthopaedic Surgery
PROC: (CPT 64721; principal; 2025-08-22 12:00)
DX: G56.02 Carpal tunnel syndrome, left upper limb (principal); G56.22 Lesion of ulnar nerve, left upper limb; M65.311 Trigger thumb, right thumb
CPT/HCPCS: 64721; 64718; 20550; J0690; A9270; J1010; J1100; J1885; J2003; J2250; J2405; J2704; J3010; J7120